=== PATIENT | male | born 1940 | race Two or more races ===

== ENCOUNTER 2018-01-21 10:05 | Inpatient (IN) | payer MEDICARE, OTHER ==
[~2018-01-21] VITALS: Ht 177.8 cm; Wt 83.5 kg
[~2018-01-21 10:05] MED LIST: ASPI-495 PO; BIMA5DRO OP; CHLO5CAP3 PO; CLOB15CR5 TP; CLOP75TA15 PO; FURO-145 PO; GLIP2.5T3 PO; LOVA10TA PO; MEMA10TA PO; METF500T3 PO; POTA20PA40 PO
--- NOTE | 2018-01-21 10:20 | NUR ---
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 PATIENT IS ALTERED. VITAL SIGNS CHECKED AND WNL. KEPT COMFORTABLE. SIDE RAILS PADDED TO PREVENT INJURY. WILL CONTINUE TO MONITOR ACCORDINGLY.
[2018-01-21 10:25] LABS: BASOPHILS % (AUTO) 0.2 % (0.0-2.0); EOSINOPHILS % (AUTO) 0.7 % (0.0-6.0); HEMATOCRIT 42 % (39-51); HEMOGLOBIN 13.9 g/dL (13.5-17.5); LYMPHOCYTES # (AUTO) 1.3 /CMM (0.8-4.8); LYMPHOCYTES % (AUTO) 24.4 % (20.0-44.0); MEAN CORPUSCULAR HGB CONC 33 g/dl (31.0-36.0); MEAN CORPUSCULAR VOLUME 77 fL (80-96); MONOCYTES # (AUTO) 0.3 /CMM (0.1-1.30); MONOCYTES % (AUTO) 5.7 % (2.0-12.0); NEUTROPHILS # (AUTO) 3.8 /CMM (1.8-8.9); PLATELET COUNT (AUTO) 181 /CMM (150-450); RED BLOOD CELL COUNT(AUTO) 5.41 MIL/uL (4.5-6.0); WHITE BLOOD COUNT (AUTO) 5.5 K/uL (4.3-11.0)
[2018-01-21] MEDS ORDERED: IV NS 0.9% 1,000 ML BAG IV ONE (10:30)
[2018-01-21 10:46] LABS: CALCIUM, SERUM 8.6 mg/dL (8.5-10.1); CARBON DIOXIDE 20 mmol/L (21-32); CHLORIDE 98 mmol/L (98-107); CREATININE 1.4 mg/dL (0.6-1.3); GLUCOSE 166 mg/dL (74-106); POTASSIUM 4.1 mmol/L (3.5-5.1); SODIUM SERUM 134 mmol/L (136-145); UREA NITROGEN, BLOOD 11 mg/dL (7-18)
[2018-01-21 10:51] LABS: APPEARANCE,URINE Clear (CLEAR); BILIRUBIN,URINE Negative (NEGATIVE); BLOOD, URINE Trace-intact Ery/uL (NEGATIVE); COLOR,URINE Yellow (YELLOW); KETONES,URINE Trace (NEGATIVE); LEUKOCYTE ESTERASE ,URINE Negative (NEGATIVE); NITRITE, URINE Negative (NEGATIVE); PH,URINE 7.5 (5.0-8.0); PROTEIN,URINE 30 mg/dl (NEGATIVE); UGLUCOSE Negative (NEGATIVE)
--- NOTE | 2018-01-21 10:51 | NUR ---
URINE COLLECTED AND SENT TO THE LAB.
[2018-01-21 10:52] LABS: ALANINE AMINOTRANSFERASE 30 U/L (12-78); ALKALINE PHOSPHATASE 77 U/L (46-116); ASPARTATE AMINOTRANSFERASE 19 U/L (15-37); BILIRUBIN,DIRECT 0.1 mg/dL (0.0-0.2); BILIRUBIN,TOTAL 0.4 mg/dL (0.2-1.0); TOTAL PROTEIN, SERUM 6.9 g/dL (6.4-8.2)
[2018-01-21 11:00] LABS: BACTERIA,URINE Rare /HPF (None Seen); RBC,URINE 0-2 /HPF (0-2); SQUAMOUS EPITHELIAL CELL,UR Rare /HPF (None Seen); WBC,URINE 0-2 /HPF (0-3)
[2018-01-21] MEDS ORDERED: MIDAZOLAM HCL 2 MG/2ML VIAL IV ONE ×2 (11:00→13:00)
[2018-01-21] MEDS ORDERED: MIDAZOLAM HCL 2 MG/2ML VIAL ONE ×2 (11:09→11:50)
--- NOTE | 2018-01-21 11:11 | NUR ---
ADMIT TO ROOM 113-1 BUSINESS COMMUNICATIONS INSTRUCTOR DANA
--- NOTE | 2018-01-21 11:23 | NUR ---
REPORT GIVEN TO OBEY ROMERO FOR MARIELA. PATIENT GOING TO ROOM 113-1 T.
[2018-01-21] MEDS ORDERED: DOCU250C14 PO (12:22)
[2018-01-21] MEDS ORDERED: SACC250C PO (12:22)
[2018-01-21] MEDS ORDERED: ERGO500014 PO (12:22)
[2018-01-21] MEDS ORDERED: HYDR-4384 PO (12:22)
[2018-01-21] MEDS ORDERED: POLY17PO4 PO (12:22)
[2018-01-21] MEDS ORDERED: AMLO2.5T3 PO (12:22)
[2018-01-21] MEDS ORDERED: FAMO20TA8 PO (12:22)
[2018-01-21] MEDS ORDERED: TEST200V3 IM (12:22)
[2018-01-21] MEDS ORDERED: ALBU2.5V38 IH (12:22)
[2018-01-21] MEDS ORDERED: CLON0.5T12 PO (12:22)
[2018-01-21] MEDS ORDERED: MAG30ORA PO (12:22)
[2018-01-21] MEDS ORDERED: CYAN10006 IM (12:22)
[2018-01-21] MEDS ORDERED: OXCA300T4 PO (12:22)
[2018-01-21] MEDS ORDERED: QUET50TA PO (12:22)
[2018-01-21] MEDS ORDERED: CYAN10009 PO (12:22)
[2018-01-21] MEDS ORDERED: MIRT7.5T10 PO (12:22)
[2018-01-21] MEDS ORDERED: QUET25TA PO (12:22)
[2018-01-21] MEDS ORDERED: ACET325T53 PO (12:22)
[2018-01-21] MEDS ORDERED: NA P133E RC (12:22)
[2018-01-21] MEDS ORDERED: CHOL100040 PO (12:22)
[2018-01-21] MEDS ORDERED: MULT-213 PO (12:22)
[2018-01-21] MEDS ORDERED: PSYL1PAC8 PO (12:22)
[2018-01-21] MEDS ORDERED: MAGN400O6 PO (12:22)
[2018-01-21] MEDS ORDERED: INSU100I34 SQ (12:30)
[2018-01-21] MEDS ORDERED: CRAN3875 PO (12:30)
--- NOTE | 2018-01-21 12:31 | NUR ---
MOVING PATIENT TO BAKARI TO ROOM 113-1 T VIA ACLS PROTOCOL.
--- NOTE | 2018-01-21 12:32 | NUR ---
ADDITIONAL VERSED 2MG IV GIVEN VERBAL ORDERED BY DR. SOLIS WHILE ON CT.
[2018-01-21 13:00] VITALS: BP 116/66
--- NOTE | 2018-01-21 13:00 | NUR ---
RN ADMITTING NOTES: Rec'd report from Zachary KIM RN. Pt transferred via gurney, admitted to Tele as ordered. Pt is awake but not oriented, unable to understand language spoken. On room air, no SOB. Placed on telemonitor, SR 83 bpm. Has IV line on RFA G20, SL, flushing well, no s/sx of infection/infiltration noted. Pt is incontinent w/ bladder. Skin assessed mostly on the lower extremities & back as pt is refusing to take photos of his upper extremities, crossing his arms & won't let RN to check on it. CN made aware of admission & informed Dr. Marti re: admission orders. No belongings noted. Provided comfort & safety measures. Placed padded siderails. Bed kept low & in locked pos. Call light placed w/in reach. Will cont to monitor & attend pt needs.
[2018-01-21 16:00] VITALS: BP_SYST 90; BP_SYST 98; BP_DIAS 70
[2018-01-21] MEDS ORDERED: MAG HYDROX/AL HYDROX/SIMETH 30 ML UDC PO PRN (18:30)
[2018-01-21] MEDS ORDERED: ONDANSETRON HCL/PF 4 MG/2 ML VIAL IVP PRN (18:30)
[2018-01-21] MEDS ORDERED: Z GUARD REMEDY 2 OZ OINT TP PRN (18:30)
[2018-01-21] MEDS ORDERED: ZOLPIDEM TARTRATE 5 MG TABLET PO PRN (18:30)
[2018-01-21] MEDS ORDERED: MAGNESIUM HYDROXIDE 30 ML UDC PO PRN (18:30)
[2018-01-21] MEDS ORDERED: ACETAMINOPHEN 325 MG TABLET PO PRN (18:30)
[2018-01-21] MEDS ORDERED: ERGOCALCIFEROL (VITAMIN D 2) 50,000 UNIT CAPSULE PO SCH (18:30)
[2018-01-21] MEDS ORDERED: HYDROCODONE/APAP 5/325MG 1 EACH TABLET PO PRN (18:30)
[2018-01-21] MEDS ORDERED: DEXTROSE 50%-WATER 50 ML DISP.SYRIN IV PRN (19:00)
[2018-01-21] MEDS ORDERED: *INSULIN REGULAR(HUMULIN R)HUM 100 UNIT/ML VIAL SQ PRN (19:00)
[2018-01-21] MEDS ORDERED: INSULIN REGULAR, HUMAN 100 UNIT/ML 3 ML VIAL SQ PRN (19:00)
--- NOTE | 2018-01-21 19:01 | NUR ---
RN CLOSING NOTES: No acute changes noted. On telemonitor ST. IV line access kept patent & intact w/ no s/sx of infection/infiltration. Per CN, Dr. Acosta is the admitting doctor & not Dr. Marti. Dr. Acosta just placed the orders. Pt kept well rested. Needs attended. No active seizures noted. Bed kept low & in locked pos. Call light w/in reach. Endorsed to PM RN for MARIELA.
--- NOTE | 2018-01-21 19:14 | NUR ---
PATIENT ACCESS DIRECTOR NOTES RECEIVED PT ON BED. CONFUSED. ON TELE MONITOR SINUS TACHY HR 115. ON ROOM AIR NO RESPIRATORY DISTRESS NOTED. SEIZURE PRECAUTION OBSERVED. IV ACCESS ON RFA G20 PATENT AND INTACT. HEAD OF BED ELEVATED. SIDE RAILS UP. CALL LIGHT WITHIN REACH. BED ALARM ON. WILL CONTINUE TO MONITOR PT CLOSELY.
[2018-01-21] MEDS ORDERED: ALBUTEROL FS 2.5 MG/0.5 ML VIAL.NEB NEB PRN (19:30)
[2018-01-21 20:00] VITALS: BP 126/50
--- NOTE | 2018-01-21 20:51 | NUR ---
BAKARI RN NOTES RECEIVED PT REPORT FROM LOPEZ. PATIENT IS IN BED, CONFUSED. PULING TELE MONITOR, ON ROOM AIR NO RESPIRATORY DISTRESS NOTED. SEIZURE PRECAUTION OBSERVED. IV ACCESS ON RFA G20 PATENT AND INTACT. HEAD OF BED ELEVATED. SIDE RAILS UP. BED IN LOW , LOCKED POSITION, CALL LIGHT WITHIN REACH. BED ALARM ON. WILL CONTINUE TO MONITOR PT CLOSELY.
[2018-01-21] MEDS: ACETAMINOPHEN 325 MG TABLET PO PRN ×2 (22:02→22:34)
[2018-01-21] MEDS: MIRTAZAPINE 15 MG TABLET PO SCH (22:02)
[2018-01-21] MEDS: BLOOD SUGAR DIAGNOSTIC 1 EACH STRIP VI SCH (22:11)
[2018-01-21] MEDS: QUETIAPINE FUMARATE 25 MG TABLET PO SCH (22:11)
--- NOTE | 2018-01-21 22:35 | NUR ---
RN NOTES PATIENT REFUSED REMERON 7.5MG PO AND SEROQUEL 75MG PO. WILL TRY LATER AGAIN.
[2018-01-22] VITALS: BP 97/55
--- NOTE | 2018-01-22 03:28 | NUR ---
RN NOTES PATIENT WAS ASKED TO TAKE HIS REMERON 7.5MG PO AND SEROQUEL 75MG PO AGAIN AND PATIENT REFUSED AGAIN. WILL ENDORSE MORNING SHIFT NURSE.
[2018-01-22 04:00] VITALS: BP 122/61
--- NOTE | 2018-01-22 07:30 | NUR ---
RN NOTES RECEIVED PATIENT IN BED, ALERT AND ORIENTED X1, PATIENT VERBAL BUT NOT ABLE TO SPECIFY LANGUAGE USED AT THIS TIME, ON ROOM AIR, BREATHING UNLABORED, SATURATING AT 100 %, ON TELEMONITOR: SINUS RHYTHM HR AT 73, SKIN WARM TO TOUCH, IV LINE ON THE R FA: IN PLACE AND INTACT, PATENT UPON FLUSHING, WITH DIOP CATHETER: DRAINING WELL VIA GRAVITY TO CLEAR YELLOW URINE, SAFETY MEASURES OBSERVED AND MAINTAINED, BED LOW AND LOCKED, SRX3 RAISED, CALL LIGHT WITHIN REACH WILL CONTINUE TO MONITOR PATIENT
[2018-01-22 07:42] LABS: BASOPHILS % (AUTO) 0.2 % (0.0-2.0); EOSINOPHILS % (AUTO) 0.2 % (0.0-6.0); HEMATOCRIT 39 % (39-51); LYMPHOCYTES # (AUTO) 1.3 /CMM (0.8-4.8); LYMPHOCYTES % (AUTO) 22.5 % (20.0-44.0); MEAN CORPUSCULAR HGB CONC 33 g/dl (31.0-36.0); MEAN CORPUSCULAR VOLUME 77 fL (80-96); MONOCYTES # (AUTO) 0.5 /CMM (0.1-1.30); MONOCYTES % (AUTO) 8.9 % (2.0-12.0); NEUTROPHILS # (AUTO) 3.9 /CMM (1.8-8.9); NEUTROPHILS % (AUTO) 68.2 % (43.0-81.0); PLATELET COUNT (AUTO) 172 /CMM (150-450); RED BLOOD CELL COUNT(AUTO) 5.06 MIL/uL (4.5-6.0); WHITE BLOOD COUNT (AUTO) 5.8 K/uL (4.3-11.0)
[2018-01-22 07:49] LABS: CALCIUM, SERUM 8.6 mg/dL (8.5-10.1); CARBON DIOXIDE 25 mmol/L (21-32); CHLORIDE 104 mmol/L (98-107); CREATININE 1.2 mg/dL (0.6-1.3); GLUCOSE 114 mg/dL (74-106); MAGNESIUM 2.2 mg/dL (1.8-2.4); PHOSPHORUS 2.8 mg/dL (2.5-4.9); POTASSIUM 4.1 mmol/L (3.5-5.1); SODIUM SERUM 138 mmol/L (136-145); UREA NITROGEN, BLOOD 11 mg/dL (7-18)
--- NOTE | 2018-01-22 07:53 | NUR ---
WOUND CARE CONSULT: PT REFUSED SKIN ASSESSMENT. ALL SKIN PROTECTION MEASURES IN PLACE AND DISCUSSED WITH NURSING STAFF. WILL SEE PT PT CONDITION PERMITS.
[2018-01-22 08:00] VITALS: BP 104/55
[2018-01-22 08:50] LABS: CHOLESTEROL 118 mg/dL (<200); HDL CHOLESTEROL 36 mg/dL (40-60); LDL 65 mg/dL (0-99); TRIGLYCERIDES 82 mg/dL (30-150)
[2018-01-22] MEDS: MULTIVIT, IRON, MIN NO. 8, FA 1 TAB PO SCH (08:54)
[2018-01-22] MEDS: POLYETHYLENE GLYCOL 3350 17 GM POWD.PACK PO SCH (08:54)
[2018-01-22] MEDS: BLOOD SUGAR DIAGNOSTIC 1 EACH STRIP VI SCH ×4 (08:54→21:58)
[2018-01-22] MEDS: CHOLECALCIFEROL 1,000 UNIT TABLET (VIT D3) PO SCH (08:56)
[2018-01-22] MEDS: AMLODIPINE BESYLATE 2.5 MG TABLET PO SCH (08:56)
[2018-01-22] MEDS: DOCUSATE SODIUM 250 MG CAPSULE PO SCH (08:56)
[2018-01-22] MEDS: clonazePAM 0.5 MG TABLET PO SCH ×3 (08:57→16:45)
[2018-01-22] MEDS: CYANOCOBALAMIN 500 MCG TABLET PO SCH (08:57)
[2018-01-22] MEDS: QUETIAPINE FUMARATE 25 MG TABLET PO SCH ×2 (08:58→16:45)
[2018-01-22] MEDS ORDERED: OXCARBAZEPINE 150 MG TABLET PO SCH (09:00)
[2018-01-22] MEDS ORDERED: LEVETIRACETAM (250 MG) 250 MG TABLET PO SCH (09:00)
[2018-01-22] MEDS: FAMOTIDINE (20 MG) 20 MG TABLET PO SCH (09:01)
[2018-01-22] MEDS: CLOPIDOGREL BISULFATE 75 MG TABLET PO SCH (09:01)
[2018-01-22 12:00] VITALS: BP 101/46
--- NOTE | 2018-01-22 14:32 | NUR ---
JASMYN AND I TALKED TO CHARGE NURSE AKI IN REGARDS TO THIS PATIENT FOR MRI BRAIN W/WO, PATIENT IS COMBATIVE,MOVES AROUND,PATIENT NEEDS TO BE SEDATED ,AKI WILL TALK TO THE DR. MAY BE DONE TOMORROW.
[2018-01-22 16:00] VITALS: BP 109/40
[2018-01-22] MEDS: OXCARBAZEPINE 150 MG TABLET PO SCH (16:45)
--- NOTE | 2018-01-22 17:00 | NUR ---
RN NOTES EEG NOT DONE DUE TO PATIENT UNABLE TO STAY STILL
--- NOTE | 2018-01-22 19:08 | NUR ---
RN NOTES ENDORSED PATIENT FOR CONTINUITY OF CARE. NO ACUTE CHANGES WITHIN THE SHIFT. ALL [id number] NEEDS ANTICIPATED, ATTENDED AND MET. SAFETY PRECAUTIONS OBSERVED AND MAINTAINED. CALL LIGHT WITHIN REACH AT ALL TIMES
[2018-01-22 20:00] VITALS: BP 100/62
--- NOTE | 2018-01-22 22:07 | NUR ---
SECURITY CHIEF MUSEUM NOTES RECEIVED PT ON BED. A/O X 1 CONFUSED. COMBATIVE TRYING TO GET OUT OF BED. ON RESTRAINTS. ON TELE MONITOR SR 90. ON ROOM AIR SATURATING WELL. NO RESPIRATORY DISTRESS NOTED. HEAD OF BED ELEVATED. SIDE RAILS UP. CALL LIGHT WITHIN REACH. BED ALARM ON. WILL CONTINUE TO MONITOR PT CLOSELY.
--- NOTE | 2018-01-22 22:11 | NUR ---
HOSPITAL ACCOUNT LIAISON NOTES BLOOD SUGAR 74. GIVEN ONE ORANGE JUICE. WILL CONTINUE TO MONITOR PT CLOSELY.
[2018-01-23] VITALS: BP 107/58
[2018-01-23 04:00] VITALS: BP 99/55
--- NOTE | 2018-01-23 06:57 | NUR ---
DIRECTOR OF SEARCH ENGINE MARKETING NOTES NO ACUTE CHANGES NOTED DURING THE SHIFT. DUE MEDS GIVEN. PROVIDED COMFORT AND SAFETY. WILL ENDORSE TO THE AM NURSE FOR CONTINUITY OF CARE.
[2018-01-23 08:00] VITALS: BP_SYST 129; BP_DIAS 54; BP_DIAS 59
--- NOTE | 2018-01-23 08:00 | NUR ---
SENIOR FINANCIAL REPORTING ANALYST NOTE PATIENT IN BED , ALL NEEDS ATTENDED ,WITH BOTH SOFT RESTRAIN ORDERED , NO SOB NOTED FED BY ASSISTANT COUNTY ENGINEER NUL056%, NOTED SEMI LIQUID STOOL COLLECTED FOR C DIF PER PROTOCOL, RT FA HL INTACT BED IN LOWEST AND LOCKED POSITION , C.WILL CONT TO MONITOR CLOSELY
[2018-01-23] MEDS: POLYETHYLENE GLYCOL 3350 17 GM POWD.PACK PO SCH (09:00)
[2018-01-23] MEDS: QUETIAPINE FUMARATE 25 MG TABLET PO SCH ×3 (09:26→21:53)
[2018-01-23] MEDS: AMLODIPINE BESYLATE 2.5 MG TABLET PO SCH (09:27)
[2018-01-23] MEDS: OXCARBAZEPINE 150 MG TABLET PO SCH ×2 (09:28→16:56)
[2018-01-23] MEDS: CLOPIDOGREL BISULFATE 75 MG TABLET PO SCH (09:30)
[2018-01-23] MEDS: DOCUSATE SODIUM 250 MG CAPSULE PO SCH (09:30)
[2018-01-23] MEDS: CYANOCOBALAMIN 500 MCG TABLET PO SCH (09:31)
[2018-01-23] MEDS: MULTIVIT, IRON, MIN NO. 8, FA 1 TAB PO SCH (09:31)
[2018-01-23] MEDS: CHOLECALCIFEROL 1,000 UNIT TABLET (VIT D3) PO SCH (09:31)
[2018-01-23] MEDS: clonazePAM 0.5 MG TABLET PO SCH ×3 (09:31→16:56)
[2018-01-23] MEDS: BLOOD SUGAR DIAGNOSTIC 1 EACH STRIP VI SCH ×4 (09:37→21:53)
[2018-01-23] MEDS: FAMOTIDINE (20 MG) 20 MG TABLET PO SCH (09:38)
--- NOTE | 2018-01-23 10:37 | NUR ---
RESIDENTIAL SOLAR CONSULTANT NOTE PER HOSPITAL PROTOCOL STOOL FOR C DIF COLLECTED Addendum: 01/23/18 at 1412 by ABI ESTRELLA RN 1038 SENT STOOL FOR C DIF TO LABORATORY ,GIVEN TO LEXI AND SIGNED TO LOG BOOK
--- NOTE | 2018-01-23 11:11 | NUR ---
PRODUCT MARKETING PROGRAMS MANAGER NOTE MRI CONSENT DONE ORDERED SPOKE WITH
[2018-01-23 12:00] VITALS: BP 92/54
--- NOTE | 2018-01-23 12:47 | NUR ---
ACCOUNTING MACHINE MECHANIC NOTE CALLED TO CHEMICAL PLANT TECHNICAL DIRECTOR STATED THAT WILL DO AFTERNOON TODAY, WILL Yessi Addendum: 01/23/18 at 1415 by ABI ESTRELLA RN 1414 CALLED TO MRI UNIT, LEFT A MESSAGE ABOUT MRI TODAY. WILL Yessi
--- NOTE | 2018-01-23 14:05 | NUR ---
TRAIN CONTROLLER NOTE SEEN BT DR CUELLAR PSYCH DOCTOR, NOTIFIED THAT PATIENT WILL HAVE MRI TODAY ALSO , NOTIFIED THAT PATIENT VERY RESTLESS ,ON SOFT RESTRAIN ,OK TO GIVE ATIVAN PRIOR PROCEDURE WILL F\U
[2018-01-23] MEDS ORDERED: LORAZEPAM INJ 2 MG/ML VIAL IV ONE (14:30)
--- NOTE | 2018-01-23 15:54 | NUR ---
HUMIDIFIER MAINTENANCE WORKER NOTE NEW HL ON LT FA KINA 22 INSERTED WITH GOOD BLOOD RETURN. KEEP CLEAN DRY
[2018-01-23 16:00] VITALS: BP 101/62
[2018-01-23] MEDS ORDERED: LORAZEPAM INJ 2 MG/ML VIAL IV STA (17:08)
--- NOTE | 2018-01-23 17:09 | NUR ---
WRAPPER LAYER AND EXAMINER SOFT WORK NOTE [id number] ATIVAN FOR MRI NOT GIVEN DUE TO MRI POSTPONED AT THIS TIME ,CALLED PHARMACY STATED TO REENTRY MED , ORDER CARRIED OUT OUR
--- NOTE | 2018-01-23 17:30 | NUR ---
EDGER FEEDER NOTE ATIVAN PRIOR MRI DONE
--- NOTE | 2018-01-23 17:37 | NUR ---
PILOT BOAT CAPTAIN NOTE UNABLE TO DO MRI ,PATIENT STILL RESTLESS, UNABLE TO STAY STILL , WILL F\U WITH
--- NOTE | 2018-01-23 18:39 | NUR ---
JACKHAMMER SPLITTER OPERATOR NOTE SPOKE WITH BARBARA ROMERO ENVIRONMENTAL LEAD NEUROLOGIST, NOTIFIED THAT PATIENT UNABLE TO DO MRI DESPITE ALL PSYCH MEDS WAS GIVEN AND ATIVAN PRIOR MRI ,NO NEW ORDER GIVEN AT THIS TIME
[2018-01-23 20:00] VITALS: BP 125/85
[2018-01-23] MEDS: MIRTAZAPINE 15 MG TABLET PO SCH (21:53)
[2018-01-24] VITALS: BP 103/63
[2018-01-24 04:00] VITALS: BP 107/58
[2018-01-24 08:00] VITALS: BP 112/53
--- NOTE | 2018-01-24 08:06 | NUR ---
INITIAL BUSINESS LAW INSTRUCTOR NOTE RCVD PT SLEEPING, UNABLE TO FOLLOW COMMANDS, SR ON TELE. ON RA TOLERATING WELL. INCONTINENT TO DIAPER. BILATERAL SOFT WRIST RESTRAINTS IN PLACE. CIRCULATION CHECKS DONE, PULSES PRESENT BILATERALLY AND DISTALLY. IV SITE C/D/I/PATENT. NO S/O INFILTRATION/PHLEBITIS OBSERVED UPON FLUSHING. WILL CONTINUE TO MONITOR PT FOR SAFETY AND COMFORT. BED IN LOW AND LOCKED POSITION. CALL LIGHT WITHIN REACH.
[2018-01-24] MEDS: BLOOD SUGAR DIAGNOSTIC 1 EACH STRIP VI SCH ×3 (08:53→17:32)
[2018-01-24] MEDS: POLYETHYLENE GLYCOL 3350 17 GM POWD.PACK PO SCH (09:00)
[2018-01-24] MEDS ORDERED: CYANOCOBALAMIN 1,000 MCG/ML VIAL IM SCH (09:00)
[2018-01-24] MEDS: DOCUSATE SODIUM 250 MG CAPSULE PO SCH (09:00)
[2018-01-24] MEDS: clonazePAM 0.5 MG TABLET PO SCH ×3 (09:15→17:32)
[2018-01-24] MEDS: CLOPIDOGREL BISULFATE 75 MG TABLET PO SCH (09:15)
[2018-01-24] MEDS: FAMOTIDINE (20 MG) 20 MG TABLET PO SCH (09:15)
[2018-01-24] MEDS: QUETIAPINE FUMARATE 25 MG TABLET PO SCH ×2 (09:15→17:32)
[2018-01-24] MEDS: CHOLECALCIFEROL 1,000 UNIT TABLET (VIT D3) PO SCH (09:15)
[2018-01-24] MEDS: CYANOCOBALAMIN 500 MCG TABLET PO SCH (09:16)
[2018-01-24] MEDS: MULTIVIT, IRON, MIN NO. 8, FA 1 TAB PO SCH (09:16)
[2018-01-24] MEDS: AMLODIPINE BESYLATE 2.5 MG TABLET PO SCH (09:16)
[2018-01-24] MEDS: OXCARBAZEPINE 150 MG TABLET PO SCH ×2 (09:16→17:33)
--- NOTE | 2018-01-24 10:28 | NUR ---
RADAR AIR TRAFFIC CONTROLLER NOTE PT OFF RESTRAINTS AT THIS TIME TOLERATING WELL. PT APPEARS TO BE CALM WILL CONTINUE TO MONITOR.
[2018-01-24] MEDS ORDERED: OXCA150T13 PO (15:53)
[2018-01-24 16:00] VITALS: BP 105/52
[2018-01-24 20:00] VITALS: BP 111/62
--- NOTE | 2018-01-24 20:00 | NUR ---
BAKARI RN NOTE RECEIVED PT REPORT FROM AM NURSE. PATIENT IS AWAKE, UNABLE TO FOLLOW COMMANDS,CONFUSED, ON RA TOLERATING WELL. INCONTINENT TO DIAPER. PULSES CHECKED, PRESENT BILATERALLY AND DISTALLY. IV SITE C/D/I/PATENT. NO S/O INFILTRATION/PHLEBITIS OBSERVED UPON FLUSHING. WILL CONTINUE TO MONITOR PT FOR SAFETY AND COMFORT. BED IN LOW AND LOCKED POSITION. CALL LIGHT WITHIN REACH.
--- NOTE | 2018-01-24 20:07 | NUR ---
MED-EMS COORDINATOR NOTE PT REMAINS STABLE SHOWING NO S/O DISTRESS/PAIN AT THIS TIME. PT'S CARE ENDORSED TO UPHOLSTERY AUTO TRIMMER RN. PT TO BE DC TO [facility]. REPORT CALLED TO FACILITY AND GIVEN TO NICK MERRILL. PT'S , SANDEEP INFORMED OVER THE PHONE OF PT'S TRANSFER TO FACILITY THIS EVENING AND ACKNOWLEDGED INFORMATION.
--- NOTE | 2018-01-24 21:35 | NUR ---
BAKARI RN NOTES PATIENT IS LEAVING BY [facility]BUL[facility] TO [facility]. PATIENT IS STILL CONFUSED, ALERT AND CAN'T FOLLOW COMMENDS. V/S ARE WNL B/P 130/75 HR 97 SPO2 97%, RR 18 , T 97.5. IV LINE AND WRISTBAND REMOVED. NO SOB, NO PAIN AT THIS TIME. ALL NEEDS ARE ATTENDED .
== END 2018-01-24 23:47 | DRG 100 ==
LOC: ER 10:09 → TELE1 11:29 → MEDSG1 01-24 10:58
PROVIDERS: ADMIT Internal Medicine; ATTEND Internal Medicine
DX: R56.9 Unspecified convulsions (principal); N17.0 Acute kidney failure with tubular necrosis; F31.89 Other bipolar disorder; F03.91 Unspecified dementia, unspecified severity, with behavioral disturbance; E11.9 Type 2 diabetes mellitus without complications; Z79.84 Long term (current) use of oral hypoglycemic drugs; I10 Essential (primary) hypertension; F39 Unspecified mood [affective] disorder; G20 Parkinson's disease; Z87.891 Personal history of nicotine dependence; F29 Unspecified psychosis not due to a substance or known physiological condition; Z88.0 Allergy status to penicillin
CPT/HCPCS: 36415; 70450-TC; 71045-TC; 80048-TC; 80061-TC; 80076-TC; 81000-TC; 82542; 82962-TC; 83735-TC; 84100-TC; 85025-TC; 87081-TC; A4349; A4606; G0378; J1815; J2060; J2250; J3420; J7030; Z7610

== ENCOUNTER 2018-06-16 18:43 | Inpatient (IN) | payer MEDICARE, OTHER ==
[~2018-06-16] VITALS: Ht 167.6 cm; Wt 71.2 kg
[~2018-06-16 18:43] MED LIST changes: +ACET325T53 PO; +ALBU2.5V38 IH; +AMLO2.5T4 PO; -ASPI-495 PO; -BIMA5DRO OP; -CHLO5CAP3 PO; +CHOL100040 PO; -CLOB15CR5 TP; +CLON0.5T12 PO; +CRAN3875 PO; +CYAN10006 IM; +CYAN10009 PO; +DOCU250C14 PO; +ERGO500014 PO; +FAMO20TA8 PO; -FURO-145 PO; -GLIP2.5T3 PO; +HYDR-4384 PO; +INSU100I34 SQ; -LOVA10TA PO; +MAG30ORA PO; +MAGN400O6 PO; -MEMA10TA PO; -METF500T3 PO; +MIRT7.5T10 PO; +MULT-213 PO; +NA P133E RC; +OXCA150T13 PO; +POLY17PO4 PO; -POTA20PA40 PO; +PSYL1PAC8 PO; +QUET25TA PO; +QUET50TA PO; +SACC250C PO; +TEST200V3 IM
--- NOTE | 2018-06-16 18:45 | NUR ---
PT ABISAI FROM SNF FOR LOW O2 SAT; PT AAOX1, PT ON MONITOR, NAD NOTED, PENDING MD RINCON
[2018-06-16 19:14] LABS: BASOPHILS % (AUTO) 0.3 % (0.0-2.0); EOSINOPHILS % (AUTO) 0.7 % (0.0-6.0); HEMATOCRIT 41 % (39-51); HEMOGLOBIN 13.2 g/dL (13.5-17.5); LYMPHOCYTES % (AUTO) 9.3 % (20.0-44.0); MEAN CORPUSCULAR HGB CONC 33 g/dl (31.0-36.0); MEAN CORPUSCULAR VOLUME 77 fL (80-96); MONOCYTES # (AUTO) 0.6 /CMM (0.1-1.30); MONOCYTES % (AUTO) 5.5 % (2.0-12.0); NEUTROPHILS # (AUTO) 9.4 /CMM (1.8-8.9); NEUTROPHILS % (AUTO) 84.2 % (43.0-81.0); PLATELET COUNT (AUTO) 196 /CMM (150-450); RED BLOOD CELL COUNT(AUTO) 5.28 MIL/uL (4.5-6.0); WHITE BLOOD COUNT (AUTO) 11.2 K/uL (4.3-11.0)
[2018-06-16] MEDS ORDERED: CALC500T PO (19:15)
[2018-06-16] MEDS ORDERED: DIVA500T2 PO (19:15)
[2018-06-16] MEDS ORDERED: METF-440 PO (19:15)
[2018-06-16] MEDS ORDERED: CHOL100044 PO (19:15)
[2018-06-16] MEDS ORDERED: OXCA300T4 PO (19:15)
[2018-06-16 19:20] LABS: CARBON DIOXIDE 29 mmol/L (21-32); CHLORIDE 98 mmol/L (98-107); CREATININE 1.2 mg/dL (0.6-1.3); GLUCOSE 160 mg/dL (74-106); POTASSIUM 4.9 mmol/L (3.5-5.1); SODIUM SERUM 135 mmol/L (136-145); UREA NITROGEN, BLOOD 14 mg/dL (7-18)
[2018-06-16 19:36] LABS: ALANINE AMINOTRANSFERASE 14 U/L (12-78); ALBUMIN 3.9 g/dL (3.4-5.0); ALKALINE PHOSPHATASE 95 U/L (46-116); ASPARTATE AMINOTRANSFERASE 8 U/L (15-37); BILIRUBIN,DIRECT 0.1 mg/dL (0.0-0.2); BILIRUBIN,TOTAL 0.2 mg/dL (0.2-1.0); TOTAL PROTEIN, SERUM 7.4 g/dL (6.4-8.2)
[2018-06-16] MEDS ORDERED: LEVOFLOXACIN 750 MG /D5W 150ML 150 ML IV ONE ×2 (19:59→20:00)
[2018-06-16 20:00] VITALS: BP 104/73
[2018-06-16] MEDS ORDERED: IV NS 0.9% 1,000 ML BAG IV ONE (20:00)
--- NOTE | 2018-06-16 20:05 | NUR ---
CALLED HOUSE SUP FOR TELE BED
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
--- NOTE | 2018-06-16 20:20 | NUR ---
PT ASSIGNED TO 116-1.
--- NOTE | 2018-06-16 20:41 | NUR ---
REPORT GIVEN TO EDDA ROMERO FOR MARIELA; PT WILL BE TRANSPORTED TO 1ST FLOOR VIA ACLS PROTOCOL
[2018-06-16] MEDS ORDERED: ONDANSETRON HCL/PF 4 MG/2 ML VIAL IVP PRN (21:00)
[2018-06-16] MEDS ORDERED: NA PHOS,M-B/NA PHOS,DI-BA 1 EA ENEMA RC PRN (21:00)
[2018-06-16] MEDS ORDERED: clonazePAM 0.5 MG TABLET PO PRN (21:00)
[2018-06-16] MEDS ORDERED: MAGNESIUM HYDROXIDE 30 ML UDC PO PRN (21:00)
[2018-06-16] MEDS ORDERED: ACETAMINOPHEN 325 MG TABLET PO PRN (21:00)
[2018-06-16] MEDS ORDERED: Z GUARD REMEDY 2 OZ OINT TP PRN (21:00)
[2018-06-16] MEDS ORDERED: MAG HYDROX/AL HYDROX/SIMETH 30 ML UDC PO PRN (21:00)
[2018-06-16] MEDS ORDERED: HYDROCODONE/APAP 5/325MG 1 EACH TABLET PO PRN (21:00)
[2018-06-16 21:07] LABS: APPEARANCE,URINE Clear (CLEAR); BILIRUBIN,URINE Negative (NEGATIVE); BLOOD, URINE Negative Ery/uL (NEGATIVE); COLOR,URINE Yellow (YELLOW); KETONES,URINE Negative (NEGATIVE); LEUKOCYTE ESTERASE ,URINE Negative (NEGATIVE); NITRITE, URINE Negative (NEGATIVE); PH,URINE 7.5 (5.0-8.0); PROTEIN,URINE Negative (NEGATIVE); UGLUCOSE Negative (NEGATIVE)
[2018-06-16 21:30] LABS: BACTERIA,URINE Few /HPF (None Seen); RBC,URINE 0-2 /HPF (0-2); SQUAMOUS EPITHELIAL CELL,UR Few /HPF (None Seen); WBC,URINE 0-2 /HPF (0-3)
[2018-06-16] MEDS: ENOXAPARIN SODIUM 40 MG/0.4 ML DISP.SYRIN SQ SCH (22:49)
--- NOTE | 2018-06-16 23:25 | NUR ---
RN NOTES GOT A CALL FROM LAB PATIENT'S LACTIC ACID IS 2.0 FROM 4.1. WILL CONTINUE TO MONITOR PT.
[2018-06-16] MEDS: IV NS 0.9% 1,000 ML IV PRN (23:30)
[2018-06-17] VITALS: BP 122/78
[2018-06-17] MEDS ORDERED: ALBUTEROL FS 2.5 MG/3 ML VIAL.NEB INH PRN (01:30)
[2018-06-17] MEDS ORDERED: INSULIN REGULAR, HUMAN 100 UNIT/ML 3 ML VIAL SQ PRN (03:30)
[2018-06-17] MEDS ORDERED: DEXTROSE 50%-WATER 50 ML DISP.SYRIN IV PRN (03:30)
[2018-06-17 04:00] VITALS: BP_SYST 101; BP_SYST 140; BP_DIAS 73; BP_DIAS 91
[2018-06-17 07:04] LABS: BASOPHILS % (AUTO) 0.2 % (0.0-2.0); EOSINOPHILS % (AUTO) 0.6 % (0.0-6.0); HEMATOCRIT 37 % (39-51); HEMOGLOBIN 12.5 g/dL (13.5-17.5); LYMPHOCYTES # (AUTO) 1.2 /CMM (0.8-4.8); LYMPHOCYTES % (AUTO) 18.5 % (20.0-44.0); MEAN CORPUSCULAR HGB CONC 34 g/dl (31.0-36.0); MEAN CORPUSCULAR VOLUME 75 fL (80-96); MONOCYTES # (AUTO) 0.5 /CMM (0.1-1.30); MONOCYTES % (AUTO) 7.2 % (2.0-12.0); NEUTROPHILS # (AUTO) 4.8 /CMM (1.8-8.9); NEUTROPHILS % (AUTO) 73.5 % (43.0-81.0); PLATELET COUNT (AUTO) 166 /CMM (150-450); RED BLOOD CELL COUNT(AUTO) 4.95 MIL/uL (4.5-6.0); WHITE BLOOD COUNT (AUTO) 6.5 K/uL (4.3-11.0)
--- NOTE | 2018-06-17 07:05 | NUR ---
RN NOTES RECEIVED PT ON BED, ALERT / CONFUSED , ON RA , RESPIRATION EVEN AND UNLABORED, NO SOB NOTED ,ON TELE SR HR IN 80'S , R AC IV SITE G 20 CLEAN , DRY AND INTACT WITH NS AT 75CC/ HR RUNNING , SR UP X3, CALL LIGHT WITHIN EASY REACH, BED LOCKED AND IN LOWEST POSITION , CONTINUE TO MONITOR.
[2018-06-17 07:37] LABS: CALCIUM, SERUM 8.3 mg/dL (8.5-10.1); CARBON DIOXIDE 23 mmol/L (21-32); CHLORIDE 103 mmol/L (98-107); CREATININE 0.9 mg/dL (0.6-1.3); GLUCOSE 92 mg/dL (74-106); MAGNESIUM 1.8 mg/dL (1.8-2.4); PHOSPHORUS 2.7 mg/dL (2.5-4.9); POTASSIUM 3.9 mmol/L (3.5-5.1); SODIUM SERUM 136 mmol/L (136-145); UREA NITROGEN, BLOOD 11 mg/dL (7-18)
[2018-06-17 07:54] LABS: CHOLESTEROL 109 mg/dL (<200); HDL CHOLESTEROL 30 mg/dL (40-60); LDL 68 mg/dL (0-99); THYROID STIMULATING HORMONE 1.642 uIU/mL (0.358-3.74); TRIGLYCERIDES 118 mg/dL (30-150)
[2018-06-17 08:00] VITALS: BP 130/64
[2018-06-17] MEDS: BLOOD SUGAR DIAGNOSTIC 1 EACH STRIP IN SCH ×4 (08:39→21:12)
[2018-06-17] MEDS: CYANOCOBALAMIN 500 MCG TABLET PO SCH (08:40)
[2018-06-17] MEDS: CHOLECALCIFEROL 1,000 UNIT TABLET (VIT D3) PO SCH (08:40)
[2018-06-17] MEDS: QUETIAPINE FUMARATE 25 MG TABLET PO SCH ×3 (08:40→21:04)
[2018-06-17] MEDS: OXCARBAZEPINE 150 MG TABLET PO SCH ×2 (08:40→16:09)
[2018-06-17] MEDS: MULTIVIT W/MINERALS 1 TAB TABLET PO SCH (08:40)
[2018-06-17] MEDS: DOCUSATE SODIUM 250 MG CAPSULE PO SCH (08:40)
[2018-06-17] MEDS: AMLODIPINE BESYLATE 2.5 MG TABLET PO SCH (08:40)
[2018-06-17] MEDS: DIVALPROEX SODIUM 500 MG TABLET.DR PO SCH ×2 (08:41→16:10)
[2018-06-17] MEDS: CLOPIDOGREL BISULFATE 75 MG TABLET PO SCH (08:41)
[2018-06-17] MEDS: PSYLLIUM SEED 1 PKT PACKET PO SCH ×2 (08:41→16:10)
[2018-06-17] MEDS: FAMOTIDINE (20 MG) 20 MG TABLET PO SCH (08:41)
[2018-06-17] MEDS: LACTOBACILLUS RHAMNOSUS GG 1 EACH CAP.SPRINK PO SCH ×2 (08:44→16:09)
[2018-06-17] MEDS ORDERED: CALCIUM GLUCONATE 500 MG TABLET PO SCH (09:00)
[2018-06-17] MEDS ORDERED: Medication Not On Formulary EA (Cran/Vitc/Mannose/Inulin/Brom (Uti-Stat Liquid) 30 ML) PO SCH (09:00)
[2018-06-17] MEDS: POLYETHYLENE GLYCOL 3350 17 GM POWD.PACK PO SCH (11:35)
--- NOTE | 2018-06-17 12:00 | NUR ---
RN NOTES PT STABLE, CONTINUE TO MONITOR .
[2018-06-17] MEDS: IV NS 0.9% 1,000 ML IV PRN (13:30)
[2018-06-17 16:00] VITALS: BP 125/63
--- NOTE | 2018-06-17 18:20 | NUR ---
RN NOTES NO SIGNIFICANT CHANGES NOTED ON THIS SHIFT , NS AT 75CC/HR RUNNING VIA R AC IV SITE , NO COMPLICATION NOTED, WILL ENDOSE TO CANINE DEPUTY NURSE FOR CONTINUITY OF CARE .
[2018-06-17 20:00] VITALS: BP 107/60
[2018-06-17] MEDS: MIRTAZAPINE 15 MG TABLET PO SCH (21:04)
[2018-06-17] MEDS: ENOXAPARIN SODIUM 40 MG/0.4 ML DISP.SYRIN SQ SCH (21:12)
[2018-06-18 04:00] VITALS: BP 135/71
[2018-06-18] MEDS: IV NS 0.9% 1,000 ML IV PRN ×2 (05:31→19:04)
--- NOTE | 2018-06-18 07:00 | NUR ---
MS RN OPENING NOTES RECEIVED PT LYING ON BED,CONFUSED AND AGITATED AND FARSI SPEAKING.ON ROOM AIR,TOLERATING WELL.NO SOB AND ACUTE DISTRESS NOTED.B/L SOFT RESTRAINTS PRESENT,SKIN IS INTACT.IV LINE IS ON RIGHT AC G 20 WITH IV FLUIDS RUNNING 0.9% NS @75CC/HR.SITE IS CLEAN,DRY AND INTACT.NO INFILTRATION NOTED.BED IS IN LOW POSITION AND LOCKED,CALL LIGHT IS WITHIN REACH.WILL CONTINUE TO MONITOR THE PT CLOSELY.
[2018-06-18] MEDS: BLOOD SUGAR DIAGNOSTIC 1 EACH STRIP IN SCH ×4 (07:30→21:57)
[2018-06-18 07:35] LABS: BASOPHILS % (AUTO) 0.5 % (0.0-2.0); EOSINOPHILS % (AUTO) 3.6 % (0.0-6.0); HEMATOCRIT 38 % (39-51); HEMOGLOBIN 12.4 g/dL (13.5-17.5); LYMPHOCYTES # (AUTO) 1.6 /CMM (0.8-4.8); LYMPHOCYTES % (AUTO) 34.6 % (20.0-44.0); MEAN CORPUSCULAR HGB CONC 33 g/dl (31.0-36.0); MEAN CORPUSCULAR VOLUME 75 fL (80-96); MONOCYTES # (AUTO) 0.4 /CMM (0.1-1.30); MONOCYTES % (AUTO) 9.3 % (2.0-12.0); NEUTROPHILS # (AUTO) 2.4 /CMM (1.8-8.9); PLATELET COUNT (AUTO) 167 /CMM (150-450); WHITE BLOOD COUNT (AUTO) 4.6 K/uL (4.3-11.0)
[2018-06-18 07:49] LABS: CALCIUM, SERUM 8.7 mg/dL (8.5-10.1); CARBON DIOXIDE 24 mmol/L (21-32); CHLORIDE 105 mmol/L (98-107); CREATININE 0.9 mg/dL (0.6-1.3); GLUCOSE 85 mg/dL (74-106); MAGNESIUM 2.1 mg/dL (1.8-2.4); PHOSPHORUS 3.4 mg/dL (2.5-4.9); SODIUM SERUM 140 mmol/L (136-145); UREA NITROGEN, BLOOD 9 mg/dL (7-18)
[2018-06-18 08:00] VITALS: BP 127/68
[2018-06-18] MEDS: LACTOBACILLUS RHAMNOSUS GG 1 EACH CAP.SPRINK PO SCH ×2 (09:30→16:10)
[2018-06-18] MEDS: DIVALPROEX SODIUM 500 MG TABLET.DR PO SCH ×2 (09:30→16:10)
[2018-06-18] MEDS: OXCARBAZEPINE 150 MG TABLET PO SCH ×2 (09:30→16:10)
[2018-06-18] MEDS: QUETIAPINE FUMARATE 25 MG TABLET PO SCH ×3 (09:30→21:56)
[2018-06-18] MEDS: CYANOCOBALAMIN 500 MCG TABLET PO SCH (09:31)
[2018-06-18] MEDS: CALCIUM CARBONATE 500 MG TAB.CHEW PO SCH (09:31)
[2018-06-18] MEDS: AMLODIPINE BESYLATE 2.5 MG TABLET PO SCH (09:31)
[2018-06-18] MEDS: CHOLECALCIFEROL 1,000 UNIT TABLET (VIT D3) PO SCH (09:31)
[2018-06-18] MEDS: MULTIVIT W/MINERALS 1 TAB TABLET PO SCH (09:31)
[2018-06-18] MEDS: PSYLLIUM SEED 1 PKT PACKET PO SCH ×2 (09:32→16:10)
[2018-06-18] MEDS: DOCUSATE SODIUM 250 MG CAPSULE PO SCH (09:32)
[2018-06-18] MEDS: CLOPIDOGREL BISULFATE 75 MG TABLET PO SCH (09:32)
[2018-06-18] MEDS: FAMOTIDINE (20 MG) 20 MG TABLET PO SCH (09:38)
[2018-06-18] MEDS: POLYETHYLENE GLYCOL 3350 17 GM POWD.PACK PO SCH (11:33)
[2018-06-18] MEDS ORDERED: LEVO500T90 PO (14:26)
[2018-06-18 16:00] VITALS: BP 125/66
--- NOTE | 2018-06-18 17:00 | NUR ---
MS RN NOTES ORDERED TO D/C TODAY BUT ACCORDING TO THE INSURANCE,HOLDING PT ONE MORE DAY PER FUSING MACHINE FEEDER.
--- NOTE | 2018-06-18 18:49 | NUR ---
MS RN CLOSING NOTES PT IS LYING ON BED,CONFUSED AND STAYING COMFORTABLE ON BED AND FARSI SPEAKING.ON ROOM AIR,TOLERATING WELL.NO SOB AND ACUTE DISTRESS NOTED.B/L SOFT RESTRAINTS PRESENT,SKIN IS INTACT.IV LINE IS ON RIGHT AC G 20 WITH IV FLUIDS RUNNING 0.9% NS @75CC/HR.SITE IS CLEAN,DRY AND INTACT.NO INFILTRATION NOTED.BED IS IN LOW POSITION AND LOCKED,CALL LIGHT IS WITHIN REACH.ENDORSED TO PLC CONTROLS ENGINEER RN FOR MARIELA AND FOLLOW UP THE DISCHARGE PROCESS.
[2018-06-18 20:00] VITALS: BP 105/60
[2018-06-18] MEDS ORDERED: LEVOFLOXACIN 750 MG /D5W 150ML 750 MG in PREMIX 1 EA IV SCH (20:00)
--- NOTE | 2018-06-18 20:00 | NUR ---
RN INITIAL NOTES RECEIVED PT LYING ON BED,CONFUSED AND AGITATED AND POLISH SPEAKING.ON ROOM AIR,TOLERATING WELL.NO SOB AND ACUTE DISTRESS NOTED.B/L SOFT RESTRAINTS PRESENT,SKIN IS INTACT.IV LINE IS ON RIGHT AC G 20 WITH IV FLUIDS RUNNING 0.9% NS @75CC/HR.SITE IS CLEAN,DRY AND INTACT.NO INFILTRATION NOTED.BED IS IN LOW AND LOCKED POSITION,CALL LIGHT IS WITHIN REACH.WILL CONTINUE TO MONITOR CLOSELY.
[2018-06-18] MEDS: ENOXAPARIN SODIUM 40 MG/0.4 ML DISP.SYRIN SQ SCH (21:56)
[2018-06-18] MEDS: MIRTAZAPINE 15 MG TABLET PO SCH (21:56)
[2018-06-19 04:00] VITALS: BP 130/74
--- NOTE | 2018-06-19 06:56 | NUR ---
RN CLOSING NOTES PT IS LYING ON BED,CONFUSED AND STAYING COMFORTABLE, CZECH SPEAKING.ON ROOM AIR,TOLERATING WELL.NO SOB AND ACUTE DISTRESS NOTED.B/L SOFT RESTRAINTS PRESENT,SKIN IS INTACT.IV LINE IS ON RIGHT AC G 20 WITH IV FLUIDS RUNNING 0.9% NS @75CC/HR.SITE IS CLEAN,DRY AND INTACT.NO INFILTRATION NOTED.BED IS IN LOW POSITION AND LOCKED,CALL LIGHT IS WITHIN REACH.ENDORSED TO AM SHIFT RN FOR MARIELA. .
--- NOTE | 2018-06-19 07:05 | NUR ---
MS RN OPENING NOTES RECEIVED PT LYING ON BED,CONFUSED,FARSI SPEAKING.ON ROOM AIR,TOLERATING WELL.NO SOB AND ACUTE DISTRESS NOTED.B/L SOFT RESTRAINTS PRESENT,SKIN IS INTACT.IV LINE IS ON RIGHT AC G 20 WITH IV FLUIDS RUNNING 0.9% NS @75CC/HR.SITE IS CLEAN,DRY AND INTACT.NO INFILTRATION NOTED.BED IS IN LOW POSITION AND LOCKED,CALL LIGHT IS WITHIN REACH.WILL CONTINUE TO MONITOR THE PT CLOSELY
[2018-06-19 07:08] LABS: ALANINE AMINOTRANSFERASE 15 U/L (12-78); ASPARTATE AMINOTRANSFERASE 18 U/L (15-37)
[2018-06-19 07:22] LABS: VALPROIC ACID 32 ug/mL (50-100)
--- NOTE | 2018-06-19 07:45 | NUR ---
MS RN NOTES NOTED WITH BLUISH DISCOLORATION ON THE TIPS OF LEFT FINGER WHEN WE ARE TRYING TO CHECK THE BLOOD SUGAR,LOOSENED THE WRIST RESTRAINTS,CHECK THE PULSE WHICH IS STRONG PALPABLE PULSE ON LEFT HAND,CHECKED THE O2 SATURATION IS 99% ON ROOM AIR.AFTER 3MT IT GET SUBSIDED AND THE BACK TO NORMAL COLOR.PT HAS NO CHANGE OF CONDITION NOTED.
[2018-06-19] MEDS: BLOOD SUGAR DIAGNOSTIC 1 EACH STRIP IN SCH ×3 (07:53→16:59)
[2018-06-19] MEDS: FAMOTIDINE (20 MG) 20 MG TABLET PO SCH (07:54)
[2018-06-19 08:00] VITALS: BP_SYST 119; BP_SYST 90; BP_DIAS 62; BP_DIAS 70
[2018-06-19] MEDS: CLOPIDOGREL BISULFATE 75 MG TABLET PO SCH (08:29)
[2018-06-19] MEDS: CHOLECALCIFEROL 1,000 UNIT TABLET (VIT D3) PO SCH (08:29)
[2018-06-19] MEDS: AMLODIPINE BESYLATE 2.5 MG TABLET PO SCH (08:30)
[2018-06-19] MEDS: MULTIVIT W/MINERALS 1 TAB TABLET PO SCH (08:30)
[2018-06-19] MEDS: PSYLLIUM SEED 1 PKT PACKET PO SCH ×2 (08:30→16:48)
[2018-06-19] MEDS: CYANOCOBALAMIN 500 MCG TABLET PO SCH (08:30)
[2018-06-19] MEDS: QUETIAPINE FUMARATE 25 MG TABLET PO SCH ×2 (08:30→16:47)
[2018-06-19] MEDS: DIVALPROEX SODIUM 500 MG TABLET.DR PO SCH ×2 (08:30→16:47)
[2018-06-19] MEDS: DOCUSATE SODIUM 250 MG CAPSULE PO SCH (08:30)
[2018-06-19] MEDS: CALCIUM CARBONATE 500 MG TAB.CHEW PO SCH (08:31)
[2018-06-19] MEDS: OXCARBAZEPINE 150 MG TABLET PO SCH ×2 (08:31→16:47)
[2018-06-19] MEDS: LACTOBACILLUS RHAMNOSUS GG 1 EACH CAP.SPRINK PO SCH ×2 (08:31→16:47)
[2018-06-19] MEDS: IV NS 0.9% 1,000 ML IV PRN (11:19)
[2018-06-19] MEDS: POLYETHYLENE GLYCOL 3350 17 GM POWD.PACK PO SCH (12:02)
--- NOTE | 2018-06-19 14:00 | NUR ---
MS RN NOTES PT IS OFF WITH B/L WRIST RESTRAINTS FROM [id number],NOW THE PT IS AGITATED NOW.PUT BACK TO B/L SOFT WRIST RESTRAINTS.
[2018-06-19 16:00] VITALS: BP 111/57
--- NOTE | 2018-06-19 18:54 | NUR ---
MS DRAFTING ENGINEER NOTES PT IS DISCHARGED TO [facility] VIA AMBULANCE.PT NOTED WITH MILD AGITATION.SKIN ASSESSMENT IS DONE,INTACT.VITAL SIGNS CHECKED AND RECORDED.IV LINE ON RIGHT AC G20 IS REMOVED.NO BLEEDING NOTED.ON ROOM AIR,TOLERATING WELL.NO SOB AND ACUTE DISTRESS NOTED.BELONGINGS ARE CHECKED AND VERIFIED WITH CHARGE NURSE.NO COMPLICATIONS NOTED.
== END 2018-06-19 18:55 | DRG 871 ==
LOC: ER 18:49 → TELE1 20:31 → MEDSG1 22:13 → TELE1 22:15 → MEDSG1 06-17 10:05
PROVIDERS: ADMIT Nurse Practitioner Acute Care; ATTEND Student in an Organized Health Care Education/Training Program
DX: A41.9 Sepsis, unspecified organism (principal); J18.9 Pneumonia, unspecified organism; G93.40 Encephalopathy, unspecified; E87.1 Hypo-osmolality and hyponatremia; E87.2 Acidosis; F02.81 Dementia in other diseases classified elsewhere, unspecified severity, with behavioral disturbance; E11.9 Type 2 diabetes mellitus without complications; I10 Essential (primary) hypertension; I25.10 Atherosclerotic heart disease of native coronary artery without angina pectoris; Z88.0 Allergy status to penicillin; E78.5 Hyperlipidemia, unspecified; G40.909 Epilepsy, unspecified, not intractable, without status epilepticus; I25.2 Old myocardial infarction; D72.829 Elevated white blood cell count, unspecified; E86.0 Dehydration; G30.9 Alzheimer's disease, unspecified; F31.9 Bipolar disorder, unspecified
CPT/HCPCS: 36415; 71045-TC; 80048-TC; 80061-TC; 80076-TC; 80164-TC; 81000-TC; 82962-TC; 83605-TC; 83735-TC; 84100-TC; 84443-TC; 84450-TC; 84460-TC; 84484-TC; 85025-TC; 85730-TC; 87040-TC; 87081-TC; 87086-TC; 92526; 92611-TC; A4216; G0378; J1650; J1815; J1956; J7030

== ENCOUNTER 2020-03-11 21:16 | Inpatient (IN) | payer MEDICARE, OTHER ==
[~2020-03-11] VITALS: Ht 167.6 cm; Wt 63.0 kg
[~2020-03-11 21:16] MED LIST changes: +CALC500T PO; -CHOL100040 PO; +CHOL100044 PO; -CLON0.5T12 PO; +CLON0.5T4 PO; +CYAN-51 PO; -CYAN10006 IM; -CYAN10009 PO; +DIVA500T2 PO; -ERGO500014 PO; -HYDR-4384 PO; -INSU100I34 SQ; +LEVO500T90 PO; +METF-440 PO; -OXCA150T13 PO; +OXCA300T4 PO; -TEST200V3 IM
[2020-03-11] MEDS ORDERED: ACETAMINOPHEN 650 MG/SUPP.RECT RC ONE ×2 (21:23→21:30)
--- NOTE | 2020-03-11 21:29 | NUR ---
BIBEMS FROM [facility] C/O FEVER, GEN RASH, AND LOW O2 SAT 84% RA. PT PLACED ON 4L NC SAT 96%. NOTED TO BE HYPOTENSIVE 88/50, IV RF 18G INITIATED, BLOOD WORK COLLECTED, SENT TO LAB. COVID SWABBED, SENT TO LAB. UPON CHECKING RECTAL TEMP 103, GIVEN TYLENOL AND COOLING MEASURES INITIATED, WILL CONTINUE TO MONITOR.
[2020-03-11] MEDS ORDERED: IV NS 0.9% 1,000 ML BAG IV ONE (21:30)
[2020-03-11 22:03] LABS: BASOPHILS % (AUTO) 0.6 % (0.0-2.0); EOSINOPHILS % (AUTO) 0.1 % (0.0-6.0); HEMATOCRIT 36 % (39-51); HEMOGLOBIN 11.6 g/dL (13.5-17.5); LYMPHOCYTES # (AUTO) 0.5 /CMM (0.8-4.8); LYMPHOCYTES % (AUTO) 10.3 % (20.0-44.0); MEAN CORPUSCULAR HGB CONC 32 g/dl (31.0-36.0); MEAN CORPUSCULAR VOLUME 75 fL (80-96); MONOCYTES # (AUTO) 0.2 /CMM (0.1-1.30); MONOCYTES % (AUTO) 3.6 % (2.0-12.0); NEUTROPHILS # (AUTO) 4.1 /CMM (1.8-8.9); NEUTROPHILS % (AUTO) 85.4 % (43.0-81.0); PLATELET COUNT (AUTO) 256 /CMM (150-450); RED BLOOD CELL COUNT(AUTO) 4.77 MIL/uL (4.5-6.0); WHITE BLOOD COUNT (AUTO) 4.8 K/uL (4.3-11.0)
--- NOTE | 2020-03-11 22:05 | NUR ---
BG 361
--- NOTE | 2020-03-11 22:05 | NUR ---
BROUGHT TO CT
[2020-03-11 22:19] LABS: ALANINE AMINOTRANSFERASE 267 U/L (12-78); ALKALINE PHOSPHATASE 86 U/L (46-116); ASPARTATE AMINOTRANSFERASE 167 U/L (15-37); BILIRUBIN,DIRECT 0.1 mg/dL (0.0-0.2); BILIRUBIN,TOTAL 0.3 mg/dL (0.2-1.0); CALCIUM, SERUM 7.8 mg/dL (8.5-10.1); CARBON DIOXIDE 21 mmol/L (21-32); CHLORIDE 102 mmol/L (98-107); CREATININE 1.8 mg/dL (0.6-1.3); POTASSIUM 4.2 mmol/L (3.5-5.1); SODIUM SERUM 135 mmol/L (136-145); TOTAL PROTEIN, SERUM 6.6 g/dL (6.4-8.2); UREA NITROGEN, BLOOD 28 mg/dL (7-18)
[2020-03-11 22:22] LABS: GLUCOSE 395 mg/dL (74-106)
[2020-03-11] MEDS ORDERED: LIDOCAINE 2% JEL UROJET 10 ML MM ONE (22:36)
--- NOTE | 2020-03-11 22:37 | NUR ---
Lab called regarding negative covid result.
[2020-03-11] MEDS ORDERED: AZITHROMYCIN 500 MG VIAL ONE (22:49)
[2020-03-11] MEDS ORDERED: ASPIRIN 300 MG/SUPP.RECT RC ONE ×2 (22:49→23:00)
[2020-03-11] MEDS ORDERED: methylPREDNISolone SOD SUCC 125 MG/2ML VIAL ONE (22:49)
[2020-03-11] MEDS ORDERED: methylPREDNISolone SOD SUCC 125 MG/2ML VIAL IV ONE (23:00)
[2020-03-11] MEDS ORDERED: AZITHROMYCIN 500 MG in IV D5W 250 ML IV ONE (23:00)
[2020-03-11 23:05] LABS: BILIRUBIN,URINE NEGATIVE (NEGATIVE); COLOR,URINE YELLOW (YELLOW); LEUKOCYTE ESTERASE ,URINE NEGATIVE (NEGATIVE); NITRITE, URINE NEGATIVE (NEGATIVE); PH,URINE 5.5 (5.0-8.0); PROTEIN,URINE TRACE mg/dl (NEGATIVE); UGLUCOSE 250 MG/DL mg/dL (NEGATIVE); UROBILINOGEN,URINE 0.2 EU/dL (0.2)
--- NOTE | 2020-03-11 23:10 | NUR ---
DR. CASTRO SPEAKING WITH DR. YULISA PORTER REGARDING ADMISSION
--- NOTE | 2020-03-11 23:21 | NUR ---
SPOKE TO THE SON REGARDING PLAN OF CARE. PT'S SON AWARE.
[2020-03-12 00:12] LABS: BACTERIA,URINE None seen /HPF (None Seen); RBC,URINE 0-2 /HPF (0-2); SQUAMOUS EPITHELIAL CELL,UR Few /HPF (None Seen); URINE AMORPHOUS URATE Few /HPF (None Seen); WBC,URINE 0-2 /HPF (0-3)
--- NOTE | 2020-03-12 02:36 | NUR ---
PT TEMP NOTED TO BE 99.2
[2020-03-12] MEDS ORDERED: DEXTROSE 50%-WATER 50 ML DISP.SYRIN IV PRN (05:00)
[2020-03-12] MEDS ORDERED: ACETAMINOPHEN 325 MG TABLET PO PRN (05:00)
[2020-03-12] MEDS ORDERED: ALBUTEROL FS 2.5 MG/3 ML VIAL.NEB IH PRN (05:00)
[2020-03-12] MEDS ORDERED: MEROPENEM 500 MG in IV NS 0.9% 50 ML IV SCH (05:00)
[2020-03-12] MEDS ORDERED: MORPHINE SULFATE INJ 2 MG/ML DISP.SYRIN IV PRN (05:00)
[2020-03-12] MEDS ORDERED: MEROPENEM 500 MG VIAL IV ONE (05:29)
[2020-03-12 05:48] LABS: BASOPHILS % (AUTO) 0.3 % (0.0-2.0); HEMATOCRIT 36 % (39-51); HEMOGLOBIN 11.6 g/dL (13.5-17.5); LYMPHOCYTES # (AUTO) 0.4 /CMM (0.8-4.8); LYMPHOCYTES % (AUTO) 13.1 % (20.0-44.0); MEAN CORPUSCULAR HGB CONC 32 g/dl (31.0-36.0); MEAN CORPUSCULAR VOLUME 75 fL (80-96); MONOCYTES # (AUTO) 0.1 /CMM (0.1-1.30); MONOCYTES % (AUTO) 2.2 % (2.0-12.0); NEUTROPHILS # (AUTO) 2.6 /CMM (1.8-8.9); NEUTROPHILS % (AUTO) 84.4 % (43.0-81.0); PLATELET COUNT (AUTO) 235 /CMM (150-450); RED BLOOD CELL COUNT(AUTO) 4.85 MIL/uL (4.5-6.0); WHITE BLOOD COUNT (AUTO) 3.1 K/uL (4.3-11.0)
[2020-03-12 06:14] LABS: ALBUMIN 1.9 g/dL (3.4-5.0); BILIRUBIN,TOTAL 0.2 mg/dL (0.2-1.0); CALCIUM, SERUM 7.7 mg/dL (8.5-10.1); CREATININE 1.2 mg/dL (0.6-1.3); MAGNESIUM 2.2 mg/dL (1.8-2.4); PHOSPHORUS 3.8 mg/dL (2.5-4.9); POTASSIUM 4.1 mmol/L (3.5-5.1); TOTAL PROTEIN, SERUM 5.9 g/dL (6.4-8.2)
[2020-03-12 06:25] LABS: THYROID STIMULATING HORMONE 0.655 uIU/mL (0.358-3.74)
[2020-03-12] MEDS ORDERED: ALBUTEROL SULFATE 8 GM HFA.AER.AD IH PRN (07:00)
[2020-03-12] MEDS ORDERED: INSULIN REGULAR, HUMAN 100 UNIT/ML 10 ML VIAL ONE (07:20)
[2020-03-12] MEDS: BLOOD SUGAR DIAGNOSTIC 1 EACH STRIP IN SCH ×3 (07:24→17:30)
[2020-03-12] MEDS: INSULIN REGULAR, HUMAN 100 UNIT/ML 3 ML VIAL SQ PRN ×3 (07:24→18:07)
--- NOTE | 2020-03-12 07:25 | NUR ---
PER MD STONEY SANTIAGO. PHARMACY NOTIFIED.
[2020-03-12] MEDS ORDERED: FAMOTIDINE (20 MG) 20 MG TABLET ONE (07:28)
[2020-03-12] MEDS: FAMOTIDINE (20 MG) 20 MG TABLET PO SCH (07:30)
--- NOTE | 2020-03-12 07:30 | NUR ---
RECEIVED REPORT FROM NICK WOODS FOR MARIELA. PT IS AAOX0, NOT IN RESPIRATORY DISTRESS, ON O2 AT 2LPM VIA NC, V/S STABLE, KEPT RESTED AND COMFORTABLE. WILL CONTINUE TO MONITOR.
--- NOTE | 2020-03-12 07:34 | NUR ---
PT UNABLE TO TAKE PO MED PT IS AAOX0.
--- NOTE | 2020-03-12 07:38 | NUR ---
REPORT GIVEN TO MONICA ROMERO FOR MARIELA
--- NOTE | 2020-03-12 07:45 | NUR ---
PER PT IS ON NPO NOW.
--- NOTE | 2020-03-12 07:47 | NUR ---
PER BOLUS 500ML OF NORMAL SALINE.
[2020-03-12] MEDS ORDERED: DOCUSATE SODIUM 250 MG CAPSULE PO SCH (09:00)
[2020-03-12] MEDS: CHOLECALCIFEROL 1,000 UNIT TABLET (VIT D3) PO SCH (09:00)
[2020-03-12] MEDS: LACTOBACILLUS RHAMNOSUS GG 1 EACH CAP.SPRINK PO SCH ×2 (09:00→16:58)
[2020-03-12] MEDS: clonazePAM 0.5 MG TABLET PO SCH ×3 (09:00→16:58)
[2020-03-12] MEDS: QUETIAPINE FUMARATE 25 MG TABLET PO SCH ×3 (09:00→21:16)
[2020-03-12] MEDS: DIVALPROEX SODIUM 500 MG TABLET.DR PO SCH ×2 (09:00→16:58)
[2020-03-12] MEDS: PSYLLIUM SEED 1 PKT PACKET PO SCH ×2 (09:00→16:58)
[2020-03-12] MEDS: OXCARBAZEPINE 150 MG TABLET PO SCH ×2 (09:00→16:57)
[2020-03-12] MEDS: CLOPIDOGREL BISULFATE 75 MG TABLET PO SCH (09:00)
[2020-03-12] MEDS: DEXAMETHASONE SOD PHOSPHATE 10 MG/ML VIAL IV SCH (09:05)
[2020-03-12] MEDS ORDERED: ENOXAPARIN SODIUM 40 MG/0.4 ML DISP.SYRIN SQ ONE (10:37)
[2020-03-12] MEDS: ENOXAPARIN SODIUM 40 MG/0.4 ML DISP.SYRIN SQ SCH (10:38)
[2020-03-12] MEDS: POLYETHYLENE GLYCOL 3350 17 GM POWD.PACK PO SCH (11:00)
[2020-03-12] MEDS ORDERED: HYDROCORTISONE SOD SUCCINATE 100 MG/2 ML VIAL ONE (11:21)
[2020-03-12] MEDS: HYDROCORTISONE SOD SUCCINATE 100 MG/2 ML VIAL IV SCH ×2 (11:21→21:15)
--- NOTE | 2020-03-12 11:21 | NUR ---
PT IS ON NPO. PT IS AAOX0. AWARE.
[2020-03-12] MEDS ORDERED: methylPREDNISolone SOD SUCC 125 MG/2ML VIAL IV SCH (12:00)
[2020-03-12] MEDS: MULTIVITAMINS,THERAGRAN 1 UDTAB TABLET PO SCH (13:00)
[2020-03-12] MEDS ORDERED: LEVOFLOXACIN 750 MG /D5W 150ML 150 ML IV ONE (13:22)
[2020-03-12] MEDS: LEVOFLOXACIN 750 MG /D5W 150ML 750 MG in PREMIX 1 EA IV SCH (13:28)
--- NOTE | 2020-03-12 18:22 | NUR ---
BED 116 (WILL TAKE REPORT ON NEXT SHIFT)
--- NOTE | 2020-03-12 19:49 | NUR ---
REPORT GIVEN TO NICK CHAN FOR MARIELA, PT WILL BE TRANSPORTED TO 1ST FLOOR
--- NOTE | 2020-03-12 19:55 | NUR ---
RN ADMITTING NOTE RECEIVED PATIENT FROM ER VIA GURNEY; ADMITTING DIAGNOSIS OF SEPSIS/ACS,COVID PCR RESULTS PENDING. PATIENT DEMENTED/CONFUSED. IN NO S/SX OF ACUTE DISTRESS AT THIS TIME. PATIENT'S BREATHING IS EVEN AND UNLABORED. PATIENT IS ON 4 L OF OXYGEN VIA NC, TOLERATING WELL. SATURATING 96% AT THE MOMENT. PATIENT ON TELE MONITOR READING SR. NOTED IV SITE ON RFA 18G; PATENT AND FLUSHING, SALINE LOCKED. NO S/S OF INFECTION OR INFILTRATION. NOTED RASHES AT BUE, TRUNK AND REDNESS OF BOTH HEELS/FEET. PHOTOS TAKEN AND PLACED IN CHART. PATIENT KEPT CLEAN , DRY AND COMFORTABLE.SAFETY MEASURES HAVE BEEN PROVIDED AND IMPLEMENTED. PATIENT BED ALARM IS ON. HEAD OF BED ELEVATED. BED IS LOCKED, IN LOWEST POSITION AND SIDE RAILS UP. CALL LIGHT WITHIN REACH OF THE PATIENT. ISOLATION PRECAUTIONS IN PLACE. WILL CONTINUE TO MONITOR AND REASSESS FOR ANY CHANGES. WILL ATTEND TO ALL MD ADMITTING ORDERS.
[2020-03-12 20:00] VITALS: BP 95/41
--- NOTE | 2020-03-12 20:00 | NUR ---
PT TRANSPORTED TO 1ST FLOOR
[2020-03-12] MEDS ORDERED: AZITHROMYCIN 500 MG in IV D5W 250 ML IV SCH (21:00)
[2020-03-12] MEDS: MIRTAZAPINE 15 MG TABLET PO SCH (21:16)
[2020-03-13] VITALS (7 sets, daily range): BP systolic 76–112; BP diastolic 36–50
[2020-03-13] MEDS: BLOOD SUGAR DIAGNOSTIC 1 EACH STRIP IN SCH ×5 (00:06→22:37)
[2020-03-13] MEDS: INSULIN REGULAR, HUMAN 100 UNIT/ML 3 ML VIAL SQ PRN ×5 (00:07→22:41)
--- NOTE | 2020-03-13 04:00 | NUR ---
RN NOTE NOTED LOW HARITHA OF 76/43. PER MD NOTE, HYPOTENSION AND BRONCHOSPASM LIKELY SECONDARY TO COVID VACCINE. PLACED PATIENT ON TRENDELENBURG POSITION. LATEST BP 94/31. WILL CONTINUE TO MONITOR PATIENT.
[2020-03-13] MEDS: HYDROCORTISONE SOD SUCCINATE 100 MG/2 ML VIAL IV SCH ×3 (05:28→23:24)
[2020-03-13] MEDS ORDERED: IV NS 0.9% 500 ML IV ONE ×2 (07:00→18:30)
--- NOTE | 2020-03-13 07:30 | NUR ---
BUSINESS PERFORMANCE MANAGER OPENING NOTES PATIENT IS ALERT AND RESPONSIVE TO VERBAL AND PHYSICAL STIMULI. HE IS ON 02 2-4 LITERS VIA N/C WITH 02 SATURATION OF 95%. PER REPORT, PATIENT HAD BOLUS NORMAL SALINE 500 ML X1. CURRENTY NOTED WITH BP OF 94/58. DIOP CATH INTACT AND HANGING TO GRAVITY WITH CLEAR YELLOW URINE IN THE BAG. NO C/O PAIN OR DISCOMFORT AT THIS TIME. WILL CONTINUE TO MONITOR. CALL LIGHT WITH IN REACH. BED IS IN LOWEST AND LOCKED POSITION.
[2020-03-13] MEDS: DEXAMETHASONE SOD PHOSPHATE 10 MG/ML VIAL IV SCH (08:46)
[2020-03-13] MEDS: LACTOBACILLUS RHAMNOSUS GG 1 EACH CAP.SPRINK PO SCH ×2 (08:46→17:25)
[2020-03-13] MEDS: clonazePAM 0.5 MG TABLET PO SCH ×3 (08:46→17:25)
[2020-03-13] MEDS: DIVALPROEX SODIUM 500 MG TABLET.DR PO SCH ×2 (08:46→17:25)
[2020-03-13] MEDS: OXCARBAZEPINE 150 MG TABLET PO SCH ×2 (08:47→17:25)
[2020-03-13] MEDS: PSYLLIUM SEED 1 PKT PACKET PO SCH ×2 (08:47→17:26)
[2020-03-13] MEDS: MULTIVITAMINS,THERAGRAN 1 UDTAB TABLET PO SCH (08:47)
[2020-03-13] MEDS: CLOPIDOGREL BISULFATE 75 MG TABLET PO SCH (08:51)
[2020-03-13] MEDS: DOCUSATE SODIUM LIQ 100 MG/10 ML UDC PO SCH (08:51)
[2020-03-13] MEDS: CHOLECALCIFEROL 1,000 UNIT TABLET (VIT D3) PO SCH (08:51)
[2020-03-13] MEDS: QUETIAPINE FUMARATE 25 MG TABLET PO SCH ×3 (08:53→22:25)
[2020-03-13] MEDS: ENOXAPARIN SODIUM 40 MG/0.4 ML DISP.SYRIN SQ SCH (08:57)
[2020-03-13] MEDS: FAMOTIDINE (20 MG) 20 MG TABLET PO SCH (08:59)
[2020-03-13 10:16] LABS: THYROID STIMULATING HORMONE 0.688 uIU/mL (0.358-3.74)
[2020-03-13] MEDS: POLYETHYLENE GLYCOL 3350 17 GM POWD.PACK PO SCH (11:44)
--- NOTE | 2020-03-13 18:50 | NUR ---
PATIENT NOTED WITH BP OF 85/48 AND PULSE OF 84. INFORMED DR LUA AND RECEIVED ORDERS TO GIVE IV NORMAL SALINE 500 ML X1 DOSE. PATIENT NOTED WITH INFILTRATED IV SITE TO RIGHT FOREARM. NEW IV SITE STARTED TO LEFT FOREARM WITH PM SHIFT NURSE. IV FLUIDS STARTED . NEXT SHIFT TO FOLLOW UP FOR COMPLETION.
--- NOTE | 2020-03-13 19:50 | NUR ---
PRODUCTION DESIGNER CLOSING NOTES PATIENT IS ALERT AND RESPONSIVE TO VERBAL AND PHYSICAL STIMULI. HE IS ON 02 2 LITERS VIA N/C WITH 02 SATURATION OF 96%. BOLUS FEEDING 500 ML X1 RUNNING WELL. ENDORSED TO NEXT SHIFT TO FOLLOW UP AND MONITOR THE BLOOD PRESSURE. CURRENT BLOOD PRESSURE OF 112/58. DIOP CATH NOTED WITH 300 CC DURING SHIFT OF CLEAR YELLOW URINE, ENDORSED TO NEXT SHIFT FOR MARIELA.
--- NOTE | 2020-03-13 20:00 | NUR ---
PATCH FINISHER OPENING NOTE PATIENT IS ALERT AND RESPONDS TO PHYSICAL STIMULI. ON 2 L N/C WITH 02 SATURATION OF 94%. BOLUS FEEDING 500 ML X1 RUNNING WELL. ENDORSED TO NEXT SHIFT TO FOLLOW UP AND MONITOR THE BLOOD PRESSURE. CURRENT BLOOD PRESSURE OF 112/58. DIOP CATH NOTED WITH 300 CC DURING SHIFT OF CLEAR YELLOW URINE, ENDORSED TO NEXT SHIFT FOR MARIELA. Addendum: 03/14/20 at 0325 by CRISTIN SIM RN ERROR ON NOTE ENTRY. DIOP CATHERTER DRAINING YELLOW URINE. BOLUS 500 ML NS INFUSING TO NEW IV STARTED TO LEFT WRIST #22. IV REMVOED FROM RIGHT FOREARM 18 GAUGE INFILTRATED. CATHETER REMOVED AND INTACT. PT TO BE TRANSFERRED TO [facility].
--- NOTE | 2020-03-13 21:30 | NUR ---
REPORT GIVENT TO DANIS RAMIREZ AT 1141 PATIENT TRANSFERRED TO [facility] BED 2 IN STABLE CONDITION.
[2020-03-13 22:00] LABS: BASOPHILS # (AUTO) 0.1 /CMM (0.0-0.2); BASOPHILS % (AUTO) 1.1 % (0.0-2.0); EOSINOPHILS % (AUTO) 0.6 % (0.0-6.0); HEMATOCRIT 37 % (39-51); HEMOGLOBIN 11.7 g/dL (13.5-17.5); LYMPHOCYTES % (AUTO) 16.8 % (20.0-44.0); MEAN CORPUSCULAR HGB CONC 32 g/dl (31.0-36.0); MEAN CORPUSCULAR VOLUME 75 fL (80-96); MONOCYTES # (AUTO) 0.2 /CMM (0.1-1.30); MONOCYTES % (AUTO) 4.3 % (2.0-12.0); NEUTROPHILS # (AUTO) 4.4 /CMM (1.8-8.9); NEUTROPHILS % (AUTO) 77.2 % (43.0-81.0); PLATELET COUNT (AUTO) 238 /CMM (150-450); RED BLOOD CELL COUNT(AUTO) 4.91 MIL/uL (4.5-6.0); WHITE BLOOD COUNT (AUTO) 5.7 K/uL (4.3-11.0)
[2020-03-13] MEDS: MIRTAZAPINE 15 MG TABLET PO SCH (22:24)
[2020-03-13 23:21] LABS: BILIRUBIN,TOTAL 0.2 mg/dL (0.2-1.0); CALCIUM, SERUM 8.2 mg/dL (8.5-10.1); MAGNESIUM 2.4 mg/dL (1.8-2.4); PHOSPHORUS 2.2 mg/dL (2.5-4.9); TOTAL PROTEIN, SERUM 6.3 g/dL (6.4-8.2)
[2020-03-14] VITALS (9 sets, daily range): BP systolic 76–140; BP diastolic 43–98
[2020-03-14] MEDS: BLOOD SUGAR DIAGNOSTIC 1 EACH STRIP IN SCH ×4 (06:30→22:15)
[2020-03-14] MEDS: INSULIN REGULAR, HUMAN 100 UNIT/ML 3 ML VIAL SQ PRN ×4 (06:32→22:25)
[2020-03-14 07:22] LABS: BASOPHILS % (AUTO) 0.3 % (0.0-2.0); EOSINOPHILS % (AUTO) 0.1 % (0.0-6.0); HEMATOCRIT 39 % (39-51); HEMOGLOBIN 12.5 g/dL (13.5-17.5); LYMPHOCYTES % (AUTO) 14.5 % (20.0-44.0); MEAN CORPUSCULAR HGB CONC 32 g/dl (31.0-36.0); MEAN CORPUSCULAR VOLUME 74 fL (80-96); MONOCYTES # (AUTO) 0.3 /CMM (0.1-1.30); MONOCYTES % (AUTO) 5.1 % (2.0-12.0); NEUTROPHILS # (AUTO) 5.3 /CMM (1.8-8.9); PLATELET COUNT (AUTO) 251 /CMM (150-450); RED BLOOD CELL COUNT(AUTO) 5.24 MIL/uL (4.5-6.0); WHITE BLOOD COUNT (AUTO) 6.6 K/uL (4.3-11.0)
--- NOTE | 2020-03-14 07:30 | NUR ---
STEAM BLOCKER NOTES PT IN BED, AWAKE, CONFUSED, NO SIGN OF PAIN OR DISTRESS, F/C IN PLACE DRAINING WELL WITH CLEAR, YELLOW URINE, BED ALARM ON, KEPT COMFORTABLE.
[2020-03-14 08:25] LABS: ALBUMIN 2.1 g/dL (3.4-5.0); BILIRUBIN,TOTAL 0.2 mg/dL (0.2-1.0); CALCIUM, SERUM 8.5 mg/dL (8.5-10.1); CREATININE 0.9 mg/dL (0.6-1.3); MAGNESIUM 2.4 mg/dL (1.8-2.4); POTASSIUM 3.5 mmol/L (3.5-5.1); TOTAL PROTEIN, SERUM 6.3 g/dL (6.4-8.2)
[2020-03-14] MEDS: clonazePAM 0.5 MG TABLET PO SCH ×3 (09:16→17:35)
[2020-03-14] MEDS: PSYLLIUM SEED 1 PKT PACKET PO SCH ×2 (09:16→17:35)
[2020-03-14] MEDS: QUETIAPINE FUMARATE 25 MG TABLET PO SCH ×3 (09:17→22:00)
[2020-03-14] MEDS: MULTIVITAMINS,THERAGRAN 1 UDTAB TABLET PO SCH (09:17)
[2020-03-14] MEDS: DIVALPROEX SODIUM 500 MG TABLET.DR PO SCH ×2 (09:17→17:35)
[2020-03-14] MEDS: LACTOBACILLUS RHAMNOSUS GG 1 EACH CAP.SPRINK PO SCH ×2 (09:17→17:35)
[2020-03-14] MEDS: FAMOTIDINE (20 MG) 20 MG TABLET PO SCH (09:17)
[2020-03-14] MEDS: OXCARBAZEPINE 150 MG TABLET PO SCH ×2 (09:17→17:36)
[2020-03-14] MEDS: CHOLECALCIFEROL 1,000 UNIT TABLET (VIT D3) PO SCH (09:17)
[2020-03-14] MEDS: DOCUSATE SODIUM LIQ 100 MG/10 ML UDC PO SCH (09:17)
[2020-03-14] MEDS: CLOPIDOGREL BISULFATE 75 MG TABLET PO SCH (09:18)
[2020-03-14] MEDS: ENOXAPARIN SODIUM 40 MG/0.4 ML DISP.SYRIN SQ SCH (09:36)
[2020-03-14] MEDS: POLYETHYLENE GLYCOL 3350 17 GM POWD.PACK PO SCH (11:17)
[2020-03-14] MEDS: LEVOFLOXACIN 750 MG /D5W 150ML 750 MG in PREMIX 1 EA IV SCH (12:41)
[2020-03-14] MEDS: HYDROCORTISONE SOD SUCCINATE 100 MG/2 ML VIAL IV SCH ×2 (12:42→21:01)
--- NOTE | 2020-03-14 19:00 | NUR ---
RN MS NOTES PT IN BED, RESTING, NON VERBAL, NO SIGN OF PAIN OR DISTRESS, CALL LIGHT WITHIN REACH, PM CARE PROVIDED, PM MEDS GIVEN ORDERED, KEPT WARM AND COMFORTABLE IN BED, SAFETY PRECAUTIONS OBSERVED.
[2020-03-14] MEDS: MIRTAZAPINE 15 MG TABLET PO SCH (22:00)
--- NOTE | 2020-03-14 22:46 | NUR ---
RN NOTE PATIENT'S BP IS DECREASED 86/52, 90, 20, 97.5, 98% @ 4 LPM VIA NC. HELD REMERON & SEROQUEL SCHEDULED. PATIENT IS INTERMITTENTLY SLEEPING, CALM & RELAXED AT THIS TIME. WILL CONTINUE TO MONITOR.
--- NOTE | 2020-03-14 23:45 | NUR ---
RN NOTE PATIENT WAS GIVEN SNACK, TOLERATED WELL. HOB ELEVATED TO 30 DEGREE AT ALL TIMES. VITALS ARE 103/58, 94, 20, 98.1, 96% @ 4LPM VIA NC. PATIENT IS AWAKE AT THIS TIME. CALM & RELAXED. WILL CONTINUE TO MONITOR.
[2020-03-15] MEDS: HYDROCORTISONE SOD SUCCINATE 100 MG/2 ML VIAL IV SCH ×3 (05:28→22:16)
[2020-03-15] MEDS: BLOOD SUGAR DIAGNOSTIC 1 EACH STRIP IN SCH ×3 (07:02→16:39)
[2020-03-15] MEDS: INSULIN REGULAR, HUMAN 100 UNIT/ML 3 ML VIAL SQ PRN ×3 (07:18→17:05)
[2020-03-15] MEDS: FAMOTIDINE (20 MG) 20 MG TABLET PO SCH (07:40)
[2020-03-15 07:55] LABS: BASOPHILS % (AUTO) 0.6 % (0.0-2.0); EOSINOPHILS % (AUTO) 0.2 % (0.0-6.0); HEMATOCRIT 36 % (39-51); HEMOGLOBIN 11.3 g/dL (13.5-17.5); LYMPHOCYTES % (AUTO) 14.5 % (20.0-44.0); MEAN CORPUSCULAR HGB CONC 32 g/dl (31.0-36.0); MEAN CORPUSCULAR VOLUME 75 fL (80-96); MONOCYTES # (AUTO) 0.2 /CMM (0.1-1.30); MONOCYTES % (AUTO) 3.2 % (2.0-12.0); NEUTROPHILS # (AUTO) 5.4 /CMM (1.8-8.9); NEUTROPHILS % (AUTO) 81.5 % (43.0-81.0); PLATELET COUNT (AUTO) 270 /CMM (150-450); RED BLOOD CELL COUNT(AUTO) 4.75 MIL/uL (4.5-6.0); WHITE BLOOD COUNT (AUTO) 6.7 K/uL (4.3-11.0)
[2020-03-15 08:00] VITALS: BP 88/41
[2020-03-15] MEDS: DOCUSATE SODIUM LIQ 100 MG/10 ML UDC PO SCH (08:02)
[2020-03-15] MEDS: CLOPIDOGREL BISULFATE 75 MG TABLET PO SCH (08:02)
[2020-03-15] MEDS: PSYLLIUM SEED 1 PKT PACKET PO SCH ×2 (08:03→16:38)
[2020-03-15] MEDS: CHOLECALCIFEROL 1,000 UNIT TABLET (VIT D3) PO SCH (08:03)
[2020-03-15] MEDS: QUETIAPINE FUMARATE 25 MG TABLET PO SCH ×3 (08:03→22:00)
[2020-03-15] MEDS: OXCARBAZEPINE 150 MG TABLET PO SCH ×2 (08:03→17:02)
[2020-03-15] MEDS: DIVALPROEX SODIUM 500 MG TABLET.DR PO SCH ×2 (08:03→17:02)
[2020-03-15] MEDS: LACTOBACILLUS RHAMNOSUS GG 1 EACH CAP.SPRINK PO SCH ×2 (08:03→17:02)
[2020-03-15] MEDS: clonazePAM 0.5 MG TABLET PO SCH ×3 (08:03→17:02)
[2020-03-15] MEDS: MULTIVITAMINS,THERAGRAN 1 UDTAB TABLET PO SCH (08:03)
[2020-03-15] MEDS: ENOXAPARIN SODIUM 40 MG/0.4 ML DISP.SYRIN SQ SCH (08:04)
[2020-03-15 08:12] LABS: CALCIUM, SERUM 8.7 mg/dL (8.5-10.1); POTASSIUM 3.3 mmol/L (3.5-5.1)
[2020-03-15 09:06] LABS: *SPE A/G RATIO 0.7 (0.7-1.7); *SPE ALBUMIN 2.4 g/dL (2.9-4.4); *SPE ALPHA-1-GLOBULIN 0.5 g/dL (0.0-0.4); *SPE ALPHA-2-GLOBULIN 0.9 g/dL (0.4-1.0); *SPE BETA GLOBULIN 0.8 g/dL (0.7-1.3); *SPE GLOBULIN, TOTAL 3.4 g/dL (2.2-3.9); *SPE M-SPIKE 0.8 g/dL (Not Observed); *SPEGAMMA GLOBULIN 1.2 g/dL (0.4-1.8)
[2020-03-15] MEDS: POTASSIUM CHLORIDE 20 MEQ TAB.PRT.SR PO SCH ×2 (09:54→10:47)
[2020-03-15] MEDS: POLYETHYLENE GLYCOL 3350 17 GM POWD.PACK PO SCH (10:46)
--- NOTE | 2020-03-15 10:50 | NUR ---
WOUND CARE CONSULT: PT PRESENTS WITH GENERALIZED RASH/SKIN CONDITION WITH MULTIPLE AREAS OF DISCOLORATION, SCABS AND SCRATCH BASS ON SKIN, PRESENT ON ADMISSION. RN TO DISCUSS WITH PMD. RECOMMENDATIONS MADE FOR SKIN PROTECTION AND DISCUSSED WITH NURSING STAFF. MD IN AGREEMENT WITH PLAN OF CARE.
[2020-03-15 16:00] VITALS: BP 93/56
--- NOTE | 2020-03-15 19:01 | NUR ---
MS/RN - End of shift summary Patient is alert to self, needs frequent reorientation, without distress on oxygen at 4lpm via NC. Montilla catheter in place for acute hypoxemia with movement. Fall and aspiration precautions maintained. Will continue with current medical management.
--- NOTE | 2020-03-15 19:45 | NUR ---
MS RN OPENING NOTES PT RECEIVED AT BEDSIDE. PT SLEEPING. CALM, COMFORTABLE. ALERT AND ORIENTED X1. PT ON 4L NASAL CANNULA. TOLERATING WELL. NO SOB. EVEN AND UNLABORED BREATHING NOTED. LEFT WRIST #22. INTACT, PATENT, FLUSHING WELL. NO OCCLUSIONS, NO INFILTRATION. DIOP CATH. 300 OUTPUT. CLEAR, YELLOW, NO SEDIMENTS NOTED. WILL CONTINUE TO MONITOR. WILL CONTINUE PLAN OF CARE.
--- NOTE | 2020-03-15 20:39 | NUR ---
MS RN NOTE PT BP TRENDING LOW AT 85/45. NOTIFIED DR. KENDALL. ORDERED 500 CC OF 1/2 NS ONCE.
[2020-03-15] MEDS ORDERED: IV 1/2NS 1000 ML 1,000 ML IV ONE (21:30)
--- NOTE | 2020-03-15 21:40 | NUR ---
MS RN NOTE PT BP CORRECTED. INFUSION OF 500 CC OF 1/2 NS STOPPED. BP BP 143/ 73.
[2020-03-15] MEDS: MIRTAZAPINE 15 MG TABLET PO SCH (22:00)
[2020-03-16] MEDS: BLOOD SUGAR DIAGNOSTIC 1 EACH STRIP IN SCH ×5 (00:11→22:11)
[2020-03-16] MEDS: HYDROCORTISONE SOD SUCCINATE 100 MG/2 ML VIAL IV SCH ×3 (04:43→22:12)
--- NOTE | 2020-03-16 07:15 | NUR ---
MS RN OPENING NOTES PATIENT IN BED. A/O X 0-1. AFEBRILE. NO S/SX OF RESPIRATORY DISTRESS. NC 4L OF O2. DIOP CATH. IV SITE L WRIST #22 G SL. PROVIDED SAFETY MEASURES. BED IN LOWEST POSITION, LOCKED. SIDE RAILS UP X 2. CALL LIGHT WITHIN REACH. WILL CONTINUE PLAN OF CARE.
[2020-03-16 07:30] LABS: BASOPHILS % (AUTO) 0.3 % (0.0-2.0); HEMATOCRIT 37 % (39-51); HEMOGLOBIN 11.8 g/dL (13.5-17.5); LYMPHOCYTES # (AUTO) 1.2 /CMM (0.8-4.8); LYMPHOCYTES % (AUTO) 20.1 % (20.0-44.0); MEAN CORPUSCULAR HGB CONC 32 g/dl (31.0-36.0); MEAN CORPUSCULAR VOLUME 75 fL (80-96); MONOCYTES # (AUTO) 0.3 /CMM (0.1-1.30); MONOCYTES % (AUTO) 4.4 % (2.0-12.0); NEUTROPHILS # (AUTO) 4.3 /CMM (1.8-8.9); NEUTROPHILS % (AUTO) 74.2 % (43.0-81.0); PLATELET COUNT (AUTO) 296 /CMM (150-450); RED BLOOD CELL COUNT(AUTO) 4.95 MIL/uL (4.5-6.0); WHITE BLOOD COUNT (AUTO) 5.9 K/uL (4.3-11.0)
--- NOTE | 2020-03-16 07:31 | NUR ---
MS RN CLOSING NOTES PT LAYING IN BED. ASLEEP. CALM, COOPERATIVE. ALERT AND ORIENTED X1. VERY CONFUSED. AT TIMES PULLS ON NASAL CANNULA. IN THE BEGINNING OF THE SHIFT PT BP TRENDING LOW, ALERTED DR. GÓMEZ. ADMINISTTED IV BOLUS 500 ML/ HR. PT BP STABILIZED TO 143/ 73. LEFT WRIST #22. INTACT, PATENT, FLUSHING WELL. NO OCCLUSIONS, NO INFILTRATIONS. DIOP CATHETER DRAINED 800. CLEAR, CHRISTINA- YELLOW. NO SEDIMENTS. WILL CONTINUE TO MONITOR. WILL CONTINUE PLAN OF CARE.
[2020-03-16 07:44] LABS: CALCIUM, SERUM 8.4 mg/dL (8.5-10.1); MAGNESIUM 2.4 mg/dL (1.8-2.4); PHOSPHORUS 2.9 mg/dL (2.5-4.9); POTASSIUM 3.3 mmol/L (3.5-5.1)
[2020-03-16] MEDS: FAMOTIDINE (20 MG) 20 MG TABLET PO SCH (07:57)
[2020-03-16 08:00] VITALS: BP 90/51
[2020-03-16] MEDS: PSYLLIUM SEED 1 PKT PACKET PO SCH ×2 (09:22→16:26)
[2020-03-16] MEDS: clonazePAM 0.5 MG TABLET PO SCH ×3 (09:22→16:26)
[2020-03-16] MEDS: DOCUSATE SODIUM LIQ 100 MG/10 ML UDC PO SCH (09:22)
[2020-03-16] MEDS: POTASSIUM CHLORIDE 20 MEQ TAB.PRT.SR PO SCH ×2 (09:23→10:14)
[2020-03-16] MEDS: OXCARBAZEPINE 150 MG TABLET PO SCH ×2 (09:23→16:26)
[2020-03-16] MEDS: LACTOBACILLUS RHAMNOSUS GG 1 EACH CAP.SPRINK PO SCH ×2 (09:23→16:26)
[2020-03-16] MEDS: DIVALPROEX SODIUM 500 MG TABLET.DR PO SCH ×2 (09:23→16:26)
[2020-03-16] MEDS: CHOLECALCIFEROL 1,000 UNIT TABLET (VIT D3) PO SCH (09:23)
[2020-03-16] MEDS: QUETIAPINE FUMARATE 25 MG TABLET PO SCH ×3 (09:23→22:00)
[2020-03-16] MEDS: CLOPIDOGREL BISULFATE 75 MG TABLET PO SCH (09:23)
[2020-03-16] MEDS: MULTIVITAMINS,THERAGRAN 1 UDTAB TABLET PO SCH (09:26)
[2020-03-16] MEDS: ENOXAPARIN SODIUM 40 MG/0.4 ML DISP.SYRIN SQ SCH (09:35)
--- NOTE | 2020-03-16 09:47 | NUR ---
PT CAN NOT HOLD STILL FOR HIGH RESOLUTION SCAN//SPOKE TO RN
--- NOTE | 2020-03-16 10:15 | NUR ---
MS RN NOTES HELD MIRALAX. PATIENT HAD EPISODES OF DIARRHEA.
[2020-03-16] MEDS: POLYETHYLENE GLYCOL 3350 17 GM POWD.PACK PO SCH (10:16)
[2020-03-16] MEDS ORDERED: IV NS 0.9% 1,000 ML IV PRN (11:00)
[2020-03-16 13:07] LABS: *SPE A/G RATIO 0.6 (0.7-1.7); *SPE ALBUMIN 2.2 g/dL (2.9-4.4); *SPE ALPHA-1-GLOBULIN 0.5 g/dL (0.0-0.4); *SPE GLOBULIN, TOTAL 3.8 g/dL (2.2-3.9); *SPE M-SPIKE 0.5 g/dL (Not Observed); *SPEGAMMA GLOBULIN 1.3 g/dL (0.4-1.8)
[2020-03-16] MEDS: LEVOFLOXACIN 750 MG /D5W 150ML 750 MG in PREMIX 1 EA IV SCH (13:49)
[2020-03-16 16:00] VITALS: BP 142/76
[2020-03-16] MEDS: INSULIN REGULAR, HUMAN 100 UNIT/ML 3 ML VIAL SQ PRN (17:28)
--- NOTE | 2020-03-16 19:40 | NUR ---
MS RN CLOSING NOTES PATIENT IN BED. A/O X0-1. IN NO APPARENT DISTRESS. IV SITE L WRIST #22 G SL. ROUTINE MEDS WERE GIVEN. SAFETY MEASURES MAINTAINED. BED IN LOWEST POSITION, LOCKED. SIDE RAILS UP X 2. CALL LIGHT WITHIN REACH. WILL ENDORSE TO CUSTOMER PRICING MANAGER FOR [facility].
--- NOTE | 2020-03-16 19:42 | NUR ---
MS RN NOTE: RECEIVED PATIENT IN BED ASLEEP, A/OX1, NO S/SX OF ACUTE RESPIRATORY DISTRESS NOTED. IV ACCESS ON LEFT WRIST #22G PATENT AND INTACT. ON O2 4LPM VIA NASAL CANNULA, TOLERATING WELL. ON DIOP CATHETER DRAINING WELL. REPOSITIONED FOR COMFORT. NO MANIFESTATIONS OF PAIN OR DISCOMFORT, NO FACIAL GRIMACING, NO MOANING NOTED. SAFETY PRECAUTIONS IN PLACE. CALL LIGHT WITHIN REACH. WILL CONTINUE TO MONITOR PATIENT'S SAFETY.
[2020-03-16 20:00] VITALS: BP_SYST 95; BP_DIAS 45; BP_DIAS 47
[2020-03-16] MEDS: MIRTAZAPINE 15 MG TABLET PO SCH (22:00)
--- NOTE | 2020-03-16 22:21 | NUR ---
MS RN NOTE REMERON & SEROQUEL DOSE SCHEDULED HELD FOR TONIGHT DUE TO DECREASED BP 95/47. PT IS INTERMITTENTLY SLEEPING. CALM & RELAXED AT THIS TIME. WILL CONTINUE TO MONITOR.
[2020-03-17] MEDS: HYDROCORTISONE SOD SUCCINATE 100 MG/2 ML VIAL IV SCH (05:15)
[2020-03-17] MEDS: INSULIN REGULAR, HUMAN 100 UNIT/ML 3 ML VIAL SQ PRN ×2 (06:45→12:25)
--- NOTE | 2020-03-17 07:00 | NUR ---
MS RN CLOSING NOTES: PATIENT IN BED ASLEEP, A/OX1, NO S/SX OF ACUTE RESPIRATORY DISTRESS NOTED. IV ACCESS ON LEFT WRIST #22G PATENT AND INTACT. ON O2 4LPM VIA NASAL CANNULA, TOLERATING WELL. ON DIOP CATHETER DRAINING WELL. REPOSITIONED FOR COMFORT. NO MANIFESTATIONS OF PAIN OR DISCOMFORT, NO FACIAL GRIMACING, NO MOANING NOTED. BED IN LOWEST POSITION. SIDE RAILS UP X2. SAFETY PRECAUTIONS IN PLACE. CALL LIGHT WITHIN REACH. WILL ENDORSE TO DAY SHIFT NURSE FOR CONTINUITY OF CARE .
[2020-03-17 08:00] VITALS: BP 92/68
[2020-03-17] MEDS: BLOOD SUGAR DIAGNOSTIC 1 EACH STRIP IN SCH ×4 (08:06→21:55)
[2020-03-17] MEDS: ENOXAPARIN SODIUM 40 MG/0.4 ML DISP.SYRIN SQ SCH (09:00)
[2020-03-17] MEDS: PSYLLIUM SEED 1 PKT PACKET PO SCH ×3 (09:00→17:00)
[2020-03-17] MEDS ORDERED: IV 1/2NS 1000 ML 1,000 ML IV PRN (09:30)
[2020-03-17] MEDS: clonazePAM 0.5 MG TABLET PO SCH ×3 (10:00→17:00)
[2020-03-17] MEDS: DOCUSATE SODIUM LIQ 100 MG/10 ML UDC PO SCH (10:00)
[2020-03-17] MEDS: FAMOTIDINE (20 MG) 20 MG TABLET PO SCH (10:00)
[2020-03-17] MEDS: CHOLECALCIFEROL 1,000 UNIT TABLET (VIT D3) PO SCH (10:00)
[2020-03-17] MEDS: CLOPIDOGREL BISULFATE 75 MG TABLET PO SCH (10:01)
[2020-03-17] MEDS: OXCARBAZEPINE 150 MG TABLET PO SCH ×2 (10:01→17:00)
[2020-03-17] MEDS: LACTOBACILLUS RHAMNOSUS GG 1 EACH CAP.SPRINK PO SCH ×2 (10:01→17:00)
[2020-03-17] MEDS: QUETIAPINE FUMARATE 25 MG TABLET PO SCH ×3 (10:01→22:00)
[2020-03-17] MEDS: DIVALPROEX SODIUM 500 MG TABLET.DR PO SCH ×2 (10:01→17:00)
[2020-03-17] MEDS: POTASSIUM CL. PREMIX PERIPHER. 50 ML IV SCH ×6 (10:02→16:59)
[2020-03-17] MEDS: MULTIVITAMINS,THERAGRAN 1 UDTAB TABLET PO SCH (10:02)
[2020-03-17 10:33] LABS: BASOPHILS % (AUTO) 0.2 % (0.0-2.0); EOSINOPHILS % (AUTO) 0.3 % (0.0-6.0); HEMATOCRIT 34 % (39-51); HEMOGLOBIN 11.1 g/dL (13.5-17.5); LYMPHOCYTES % (AUTO) 23.4 % (20.0-44.0); MEAN CORPUSCULAR HGB CONC 32 g/dl (31.0-36.0); MEAN CORPUSCULAR VOLUME 75 fL (80-96); MONOCYTES # (AUTO) 0.3 /CMM (0.1-1.30); MONOCYTES % (AUTO) 3.8 % (2.0-12.0); NEUTROPHILS % (AUTO) 72.3 % (43.0-81.0); PLATELET COUNT (AUTO) 277 /CMM (150-450); RED BLOOD CELL COUNT(AUTO) 4.58 MIL/uL (4.5-6.0); WHITE BLOOD COUNT (AUTO) 8.4 K/uL (4.3-11.0)
[2020-03-17] MEDS: POLYETHYLENE GLYCOL 3350 17 GM POWD.PACK PO SCH (11:00)
[2020-03-17 11:05] LABS: CALCIUM, SERUM 8.4 mg/dL (8.5-10.1); CREATININE 1.2 mg/dL (0.6-1.3); POTASSIUM 3.2 mmol/L (3.5-5.1)
[2020-03-17 16:00] VITALS: BP 97/49
--- NOTE | 2020-03-17 19:40 | NUR ---
RT NOTE NT SX PT GOT THICK WHITE MOD SECRETIONS. SOME BLEEDING NOTICED ON RIGHT NOSTRIL. RN AWARE.
[2020-03-17 20:00] VITALS: BP 95/40
--- NOTE | 2020-03-17 20:04 | NUR ---
NURSE OPENING NOTES PATIENT IN THE ROOM, BEING SUCTIONED BY RT AT THIS TIME. NOTED SECRETIONS TO BE BLOOD TINGED. WILL ADMINISTERED ORDERED MEDICATIONS. O2 INAHALTION AT 6LPM VIA NASAL CANNULA CONTINUED. WILL CHECK BLOOD GLUCOSE LEVELS ORDERED. WILL MONITOR PATIENT.
--- NOTE | 2020-03-17 20:32 | NUR ---
AM SHIFT SUMMARY PATIENT IN BED. A/O X 0-1. LETHARGIC. IV SITE L WRIST #22 G SL. NC ON ON 4L/MIN. ON DIOP CATH, DRAINING IN YELLOW URINE. ROUTINE MEDS WERE GIVEN ORDERED. PATIENT WAS DESATING AROUND 1730, SA02 FROM 75-80%. CALLED RT AND SUCTIONED THE PATIENT. GREENISH TO YELLOWISH DISCHARGE. WAS PUT ON SEMI FOWLERS POSITION AND HIGH FLOW O2 WITH NON REBREATHER MASK. PATIENT SA02 WENT TO 92-93%. PATIENT WAS PUT ON 6L/MIN. RT WILL DO SUCTION Q4. SAFETY MEASURES MAINTAINED. BED IN LOWEST POSITION, LOCKED. SIDE RAILS UP X 2. CALL LIGHT WITHIN REACH. WILL ENDORSE TO FINAL INSPECTOR TRUCK TRAILER FOR MARIELA.
[2020-03-17] MEDS: MIRTAZAPINE 15 MG TABLET PO SCH (22:00)
[2020-03-18] MEDS: IV 1/2NS 1000 ML 1,000 ML IV PRN ×2 (03:39→18:42)
--- NOTE | 2020-03-18 06:01 | NUR ---
CLOSING NOTES: PATIENT IN THE ROOM, RESTING COMFORTABLY, NO COMPLAINS OF PAIN, NO FACIAL GRIMACE NOTED. REPOSITIONED PATIENT Q2H. BLOOD GLUCOSE LEVELS CHECKED. REMERON AND SEROQUEL MEDICATION NON ADMINISTERED PATIENT HAS DECREASED BLOOD PRESSURE. SAFETY AND FALL PRECAUTIONS MAINTAINED. BED ALARM KEPT ON. WILL CONTINUE TO MONITOR PATIENT. WILL ENDORSE PATIENT TO DAY SHIFT NURSE.
[2020-03-18] MEDS: BLOOD SUGAR DIAGNOSTIC 1 EACH STRIP IN SCH ×4 (06:37→22:15)
--- NOTE | 2020-03-18 07:28 | NUR ---
MS/RN OPENING NOTE RECEIVED PATIENT FROM DRY PRESS OPERATOR HELPER NURSE PATIENT A/O X1, NON VERBAL. PATIENT IS ASLEEP IN BED, EASILY WOKEN UP. PATIENT ON OXYGEN 6L VIA NASAL CANNULA TOLERATING WELL, BREATHING EVEN, NON LABORED, NO SOB NOTED. NO ACUTE DISTRESS NOTED AT THIS TIME. CARMITA #22 INTACT AND PATENT. SAFETY MEASURE IN PLACE BED LOCKED AND IN LOWEST POSITION, CALL LIGHT WITHIN REACH WILL CONTINUE TO MONITOR AND ENSURE SAFETY.
[2020-03-18] MEDS: FAMOTIDINE (20 MG) 20 MG TABLET PO SCH (07:38)
[2020-03-18 07:56] LABS: BASOPHILS # (AUTO) 0.1 /CMM (0.0-0.2); BASOPHILS % (AUTO) 1.2 % (0.0-2.0); HEMATOCRIT 36 % (39-51); HEMOGLOBIN 11.2 g/dL (13.5-17.5); LYMPHOCYTES # (AUTO) 3.3 /CMM (0.8-4.8); LYMPHOCYTES % (AUTO) 41.2 % (20.0-44.0); MEAN CORPUSCULAR HGB CONC 31 g/dl (31.0-36.0); MEAN CORPUSCULAR VOLUME 77 fL (80-96); MONOCYTES # (AUTO) 0.4 /CMM (0.1-1.30); MONOCYTES % (AUTO) 5.3 % (2.0-12.0); NEUTROPHILS % (AUTO) 50.3 % (43.0-81.0); PLATELET COUNT (AUTO) 285 /CMM (150-450); RED BLOOD CELL COUNT(AUTO) 4.68 MIL/uL (4.5-6.0)
[2020-03-18 08:00] VITALS: BP 78/41
[2020-03-18 08:31] LABS: CREATININE 1.2 mg/dL (0.6-1.3); POTASSIUM 3.6 mmol/L (3.5-5.1)
[2020-03-18] MEDS: PSYLLIUM SEED 1 PKT PACKET PO SCH ×2 (09:00→16:25)
[2020-03-18] MEDS: DOCUSATE SODIUM LIQ 100 MG/10 ML UDC PO SCH (09:00)
[2020-03-18] MEDS: LEVOFLOXACIN (250MG) 250 MG TABLET PO SCH (09:00)
[2020-03-18] MEDS: LACTOBACILLUS RHAMNOSUS GG 1 EACH CAP.SPRINK PO SCH ×2 (09:00→16:25)
[2020-03-18] MEDS: DIVALPROEX SODIUM 500 MG TABLET.DR PO SCH ×2 (09:00→16:25)
[2020-03-18] MEDS: clonazePAM 0.5 MG TABLET PO SCH ×3 (09:00→16:25)
[2020-03-18] MEDS: CLOPIDOGREL BISULFATE 75 MG TABLET PO SCH (09:00)
[2020-03-18] MEDS: CHOLECALCIFEROL 1,000 UNIT TABLET (VIT D3) PO SCH (09:00)
[2020-03-18] MEDS: MULTIVITAMINS,THERAGRAN 1 UDTAB TABLET PO SCH (09:00)
[2020-03-18] MEDS: QUETIAPINE FUMARATE 25 MG TABLET PO SCH ×3 (09:00→22:00)
[2020-03-18] MEDS: OXCARBAZEPINE 150 MG TABLET PO SCH ×2 (09:00→16:25)
--- NOTE | 2020-03-18 10:07 | NUR ---
MS/RN NOTE PATIENT FAILED SWALLOW EVAL. ST RECOMMENDS TO KEEP PATIENT NPO WITH ORAL CARE. MESSAGED DR. SALDANA OF RESULTS AND RECOMMENDATION. ALSO INFORMED DR. SALDANA THAT PATIENT IS HYPOTENSIVE WITH BP 79/49, P 78, O2 SAT 96% ON 6L OF OXYGEN VIA NASAL CANNULA.
[2020-03-18] MEDS: ENOXAPARIN SODIUM 40 MG/0.4 ML DISP.SYRIN SQ SCH (10:17)
[2020-03-18] MEDS ORDERED: IV NS 0.9% 1,000 ML IV ONE (10:30)
[2020-03-18] MEDS: POLYETHYLENE GLYCOL 3350 17 GM POWD.PACK PO SCH (10:34)
--- NOTE | 2020-03-18 10:34 | NUR ---
MS/RN NOTES PO MEDICATIONS HELD DUE TO FAILED SWALLOW EVAL. MD AWARE.
--- NOTE | 2020-03-18 10:35 | NUR ---
MS/RN NOTE DR. SALDANA ORDERED 1L BOLUS. ORDERS RECEIVED AND CARRIED OUT. WILL CONTINUE TO MONITOR
[2020-03-18] MEDS: SOD FERRIC GLUC 125 MG in IV NS 0.9% 100 ML IV SCH (14:16)
[2020-03-18 16:00] VITALS: BP 85/49
--- NOTE | 2020-03-18 19:02 | NUR ---
MS/RN CLOSING NOTE PATIENT IS RESTING COMFORTABLY IN BED. PATIENT IS A/O X1 AWAKE/NON VERBAL. ON OXYGEN 6L VIA NASAL CANNULA, TOLERATING WELL. BREATHING EVEN, LABORED. NO SOB NOTED. CARMITA #24 INTACT AND PATENT. ALL NEEDS MET THROUGHOUT THE SHIFT. NO ACUTE DISTRESS NOTED. SAFETY MEASURES IN PLACE, WILL ENDORSE TO MAINTENANCE HELPER UTILITY ENGINEER NURSE.
[2020-03-18 20:00] VITALS: BP 119/50
--- NOTE | 2020-03-18 20:00 | NUR ---
VISUAL STYLIST OPENING NOTES PATIENT IN BED; A/O X1; NONVERBAL. ON 02 5LPM VIA NC; TOLERATING WELL WITH NO SOB. ON EXTERNAL TELE MONITORING READING SR AND HR AT 76. DIOP CATHETER PATENT AND INTACT; DRAINING CLEAR YELLOW URINE BY GRAVITY. MAINTAINED ON NPO DIET. IV #24 ON CARMITA; PATENT AND INTACT; INFUSING 1/2NS @ 100 ML/HR. NO S/S OF PAIN OR DISTRESS NOTED. SAFETY MEASURES IN PLACE; BED IS LOWEST LOCKED POSITION, SIDE RAILS UPX 3, CALL LIGHT WITHIN EASY REACH, BED ALARM ON. WILL CONTINUE TO MONITOR.
--- NOTE | 2020-03-18 20:26 | NUR ---
TUNNEL WORKER NOTES - NPO PATIENT NPO; UNABLE TO PASS SWALLOW EVALUATION. HELD ALL NPO MEDICATIONS. NOTIFIED DR. KENDALL AND STATED HE WILL REVIEW MEDICATIONS. ASPIRATION SAFETY MEASURES MAINTAINED.
[2020-03-18 21:04] VITALS: BP 119/50
[2020-03-18] MEDS: MIRTAZAPINE 15 MG TABLET PO SCH (22:00)
[2020-03-18] MEDS: INSULIN REGULAR, HUMAN 100 UNIT/ML 3 ML VIAL SQ PRN (22:16)
[2020-03-19] VITALS: BP_SYST 113; BP_SYST 118; BP_DIAS 48
[2020-03-19 04:00] VITALS: BP_SYST 111; BP_SYST 112; BP_DIAS 46
[2020-03-19] MEDS: IV 1/2NS 1000 ML 1,000 ML IV PRN (05:57)
--- NOTE | 2020-03-19 06:02 | NUR ---
BELT CHANGER NOTES - NGT ENOCH (ON-CALL) REVIEWED PATIENTS MEDICATIONS AND ORDERED FOR NGT FOR MEDICATIONS. INSERTED [place] SUMP 16FR AT 40CM TO R NARE. CHECKED PLACEMENT AND AUSCULTATED FOR BUBBLES IN ABDOMEN. BUBBLES HEARD. CHECKED PLACEMENT WITH JOSE RN AND ELENO RNs. PATIENT NO NEW RESPIRATORY DISTRESS NOTED. SUCTION PATIENT'S MOUTH NEEDED, AND PERFORMED ORAL CARE. CHEST X-RAY FOR NGT PLACEMENT ORDERED AND PENDING. WILL CONTINUE TO MONITOR.
[2020-03-19 06:40] LABS: BASOPHILS % (AUTO) 0.3 % (0.0-2.0); EOSINOPHILS % (AUTO) 6.9 % (0.0-6.0); HEMATOCRIT 38 % (39-51); HEMOGLOBIN 11.9 g/dL (13.5-17.5); LYMPHOCYTES # (AUTO) 3.6 /CMM (0.8-4.8); LYMPHOCYTES % (AUTO) 45.7 % (20.0-44.0); MEAN CORPUSCULAR HGB CONC 31 g/dl (31.0-36.0); MEAN CORPUSCULAR VOLUME 76 fL (80-96); MONOCYTES # (AUTO) 0.4 /CMM (0.1-1.30); MONOCYTES % (AUTO) 4.7 % (2.0-12.0); NEUTROPHILS # (AUTO) 3.3 /CMM (1.8-8.9); NEUTROPHILS % (AUTO) 42.4 % (43.0-81.0); PLATELET COUNT (AUTO) 299 /CMM (150-450); RED BLOOD CELL COUNT(AUTO) 5.01 MIL/uL (4.5-6.0); WHITE BLOOD COUNT (AUTO) 7.9 K/uL (4.3-11.0)
--- NOTE | 2020-03-19 06:51 | NUR ---
AFFILIATE MARKETING SPECIALIST CLOSING NOTES NOTES PATIENT IN BED; A/O X0; NONVERBAL. ON 02 5LPM VIA NC; TOLERATING WELL WITH NO SOB. ON EXTERNAL TELE MONITORING READING SR AND HR AT 76. DIOP CATHETER PATENT AND INTACT; DRAINING CLEAR YELLOW URINE BY GRAVITY. MAINTAINED ON NPO DIET. NGT ON R NARE; INTACT. IV #24 ON CARMITA; PATENT AND INTACT; INFUSING 1/2NS @ 100 ML/HR. SAFETY MEASURES IN PLACE; BED IS LOWEST LOCKED POSITION, SIDE RAILS UPX 3, CALL LIGHT WITHIN EASY REACH, BED ALARM ON. WILL ENDORSE MARIELA TO ONCOMING AM RN.
--- NOTE | 2020-03-19 07:15 | NUR ---
RN OPENING NOTES PATIENT IN BED. A/O X0. NON VERBAL, EYES OPEN. AFEBRILE. NO S/SX OF RESPIRATORY DISTRESS. RADIOLOGIST DOING CHEST XRAY WHEN I CAME IN. NGT TUBE NOT IN PLACED. PATIENT KEPT ON NPO UNTIL FURTHER NOTICE. DIOP CATH DRAINING IN YELLOW URINE. IV SITE CARMITA #24, INTACT, 1/2 NS RUNNING @100 ML/HR. SAFETY MEASURES MAINTAINED. BED IN LOWEST POSITION, LOCKED. SIDE RAILS UP X 2. CALL LIGHT WITHIN REACH. WILL CONTINUE PLAN OF CARE.
[2020-03-19] MEDS: BLOOD SUGAR DIAGNOSTIC 1 EACH STRIP IN SCH ×4 (07:17→23:14)
[2020-03-19] MEDS: INSULIN REGULAR, HUMAN 100 UNIT/ML 3 ML VIAL SQ PRN (07:18)
[2020-03-19 07:25] LABS: ALBUMIN 1.8 g/dL (3.4-5.0); BILIRUBIN,TOTAL 0.3 mg/dL (0.2-1.0); CALCIUM, SERUM 8.3 mg/dL (8.5-10.1); CREATININE 1.1 mg/dL (0.6-1.3); MAGNESIUM 2.2 mg/dL (1.8-2.4); PHOSPHORUS 2.8 mg/dL (2.5-4.9); TOTAL PROTEIN, SERUM 6.3 g/dL (6.4-8.2)
[2020-03-19] MEDS: FAMOTIDINE (20 MG) 20 MG TABLET PO SCH (07:30)
[2020-03-19 08:00] VITALS: BP 96/80
[2020-03-19] MEDS: DIVALPROEX SODIUM 500 MG TABLET.DR PO SCH ×2 (09:00→17:00)
[2020-03-19] MEDS: DOCUSATE SODIUM LIQ 100 MG/10 ML UDC PO SCH (09:00)
[2020-03-19] MEDS: CHOLECALCIFEROL 1,000 UNIT TABLET (VIT D3) PO SCH (09:00)
[2020-03-19] MEDS: LACTOBACILLUS RHAMNOSUS GG 1 EACH CAP.SPRINK PO SCH ×2 (09:00→17:00)
[2020-03-19] MEDS: MULTIVITAMINS,THERAGRAN 1 UDTAB TABLET PO SCH (09:00)
[2020-03-19] MEDS: PSYLLIUM SEED 1 PKT PACKET PO SCH ×2 (09:00→17:00)
[2020-03-19] MEDS: clonazePAM 0.5 MG TABLET PO SCH ×3 (09:00→17:00)
[2020-03-19] MEDS: ENOXAPARIN SODIUM 40 MG/0.4 ML DISP.SYRIN SQ SCH (09:00)
[2020-03-19] MEDS: CLOPIDOGREL BISULFATE 75 MG TABLET PO SCH (09:00)
[2020-03-19] MEDS: OXCARBAZEPINE 150 MG TABLET PO SCH ×2 (09:00→17:00)
[2020-03-19] MEDS: POLYETHYLENE GLYCOL 3350 17 GM POWD.PACK PO SCH (11:00)
--- NOTE | 2020-03-19 11:24 | NUR ---
RN NOTES REINSERTED NG TUBE. ORDERED FOR ANOTHER CHEST XRAY. PUT THE PT IN B WRIST SOFT RESTRAINT. WILL CONTINUE TO MONITOR.
[2020-03-19 12:00] VITALS: BP 94/51
--- NOTE | 2020-03-19 12:56 | NUR ---
RN NOTES ACCUCHECK DONE. BS OF 46. D50W IVP, D5NS IV @ 100 ML/HR. ADMINISTERED
[2020-03-19] MEDS: IV D5/ 0.9% NACL 1,000 ML IV PRN (13:12)
[2020-03-19] MEDS ORDERED: DEXTROSE 50%-WATER 50 ML DISP.SYRIN IVP ONE (13:15)
--- NOTE | 2020-03-19 13:39 | NUR ---
RN NOTES RECHECKED BS 139.
[2020-03-19 16:00] VITALS: BP 101/55
[2020-03-19] MEDS: POTASSIUM CL. PREMIX PERIPHER. 50 ML IV SCH ×4 (16:08→23:49)
[2020-03-19] MEDS: SOD FERRIC GLUC 125 MG in IV NS 0.9% 100 ML IV SCH (16:34)
[2020-03-19] MEDS ORDERED: POTASSIUM CL. PREMIX PERIPHER. 50 ML IV SCH (19:00)
--- NOTE | 2020-03-19 20:00 | NUR ---
MS RN OPENING NOTES RECEIVED PATIENT IN BED. A/O X0. NON VERBAL, NO S/S OF RESPIRATORY DISTRESS. PT ON NGT TUBE, ON BILATERAL WRIST SOFT RESTRAINT D/T PULLING OF NGT. DIOP CATH DRAINING IN YELLOW URINE. IV SITE CARMITA #24, INTACT, 1/2 NS RUNNING @100 ML/HR. SAFETY PRECAUTION MAINTAINED. BED IN LOWEST POSITION AND LOCKED. SIDE RAILS UP X 2. CALL LIGHT WITHIN REACH. WILL CONTINUE TO MONITOR THROUGHOUT SHIFT.
[2020-03-19 20:57] VITALS: BP 99/52
--- NOTE | 2020-03-19 21:26 | NUR ---
NGT ADVANCED TO 10CM INSIDE, CHECKED PATENCY BY BY INTRODUCING AIR AND AUSCULTATED OVER THE EPIGASTRIC AREA, HEARD A GURGLE SOUNDS WHEN AIR INTRODUCED, CONFIRMED BY THE CHARGE NURSE SHASHANK, PATENCY IS GOOD. DIPPED THE END OF THE NGT TUBE IN THE WATER NO BUBBLING.
--- NOTE | 2020-03-19 21:41 | NUR ---
RN CLOSING NOTES PATIENT IN BED. A/O X 0. NON VERBAL. DIOP CATH DRAINING IN YELLOW URINE. IV SITE NOT WORKING GOOD TIL AFTERNOON. BEEN TRYING TO PUT ONE BUT UNSUCCESSFUL, HARD STICK. PENELOPE ABLE TO MAKE AN IV LINE ON THE RIGHT AC #20G. POTASSIUM CHL 10 MEQ/50 ML JUST STARTED. 3 BAGS WERE ADMINISTERED. ENDORSED TO STRATEGY PLANNING CONSULTANT FOR CONTINUITY OF MEDICATION. HAFSA MIDLINE INSERTION BY DR ARIELLA JOHNSON. SAFETY MEASURES MAINTAINED. BED IN LOWEST POSITION, LOCKED. SIDE RAILS UP X 2. CALL LIGHT WITHIN REACH. ENDORSED TO NIGHT FOR MARIELA.
--- NOTE | 2020-03-19 22:57 | NUR ---
REPORTS GIVEN TO RN FAA FOR CONTINUITY OF CARE.
[2020-03-19] MEDS: MIRTAZAPINE 15 MG TABLET PO SCH (23:15)
[2020-03-19] MEDS: QUETIAPINE FUMARATE 25 MG TABLET PO SCH (23:16)
[2020-03-20] VITALS (7 sets, daily range): BP systolic 100–115; BP diastolic 54–68
[2020-03-20] MEDS: POTASSIUM CL. PREMIX PERIPHER. 50 ML IV SCH (01:02)
[2020-03-20 07:12] LABS: BASOPHILS % (AUTO) 0.2 % (0.0-2.0); EOSINOPHILS % (AUTO) 5.2 % (0.0-6.0); HEMATOCRIT 39 % (39-51); HEMOGLOBIN 12.1 g/dL (13.5-17.5); LYMPHOCYTES # (AUTO) 6.4 /CMM (0.8-4.8); LYMPHOCYTES % (AUTO) 62.9 % (20.0-44.0); MEAN CORPUSCULAR HGB CONC 31 g/dl (31.0-36.0); MEAN CORPUSCULAR VOLUME 78 fL (80-96); MONOCYTES # (AUTO) 0.6 /CMM (0.1-1.30); MONOCYTES % (AUTO) 5.5 % (2.0-12.0); NEUTROPHILS # (AUTO) 2.6 /CMM (1.8-8.9); NEUTROPHILS % (AUTO) 26.2 % (43.0-81.0); PLATELET COUNT (AUTO) 306 /CMM (150-450); RED BLOOD CELL COUNT(AUTO) 5.05 MIL/uL (4.5-6.0); WHITE BLOOD COUNT (AUTO) 10.1 K/uL (4.3-11.0)
[2020-03-20 07:38] LABS: CALCIUM, SERUM 8.1 mg/dL (8.5-10.1); CREATININE 0.9 mg/dL (0.6-1.3); MAGNESIUM 2.2 mg/dL (1.8-2.4); PHOSPHORUS 2.2 mg/dL (2.5-4.9); POTASSIUM 3.8 mmol/L (3.5-5.1)
[2020-03-20] MEDS: BLOOD SUGAR DIAGNOSTIC 1 EACH STRIP IN SCH ×4 (07:39→22:09)
--- NOTE | 2020-03-20 08:03 | NUR ---
SALES PERFORMANCE ANALYST OPENING NOTE PATIENT IS IN BED RESTING. PATIENT IS IN NO ACUTE DISTRESS. NO SOB NOTED. PATIENT IS ON 6L OXYGEN ON NC. PATIENT IS ON TELE MONITOR READING SR 90s. PATIENT HAS WRIST RESTRAINS. PATIENT IS ON NG-TUBE. SAFETY PRECAUTIONS ARE IN PLACE. BED IS LOCKED AND IN THE LOWEST POSITION. SIDE RAILS ARE ON, CALL LIGHT WITHIN REACH. WILL CONTINUE TO MONITOR THROUGH OUT THE SHIFT.
[2020-03-20] MEDS: DOCUSATE SODIUM LIQ 100 MG/10 ML UDC PO SCH (08:42)
[2020-03-20] MEDS: DIVALPROEX SODIUM 500 MG TABLET.DR PO SCH ×2 (08:42→17:16)
[2020-03-20] MEDS: CHOLECALCIFEROL 1,000 UNIT TABLET (VIT D3) PO SCH (08:42)
[2020-03-20] MEDS: CLOPIDOGREL BISULFATE 75 MG TABLET PO SCH (08:43)
[2020-03-20] MEDS: clonazePAM 0.5 MG TABLET PO SCH ×3 (08:43→17:16)
[2020-03-20] MEDS: PSYLLIUM SEED 1 PKT PACKET PO SCH ×2 (08:43→17:16)
[2020-03-20] MEDS: FAMOTIDINE (20 MG) 20 MG TABLET PO SCH (08:43)
[2020-03-20] MEDS: MULTIVITAMINS,THERAGRAN 1 UDTAB TABLET PO SCH (08:43)
[2020-03-20] MEDS: LACTOBACILLUS RHAMNOSUS GG 1 EACH CAP.SPRINK PO SCH ×2 (08:43→17:16)
[2020-03-20] MEDS: ENOXAPARIN SODIUM 40 MG/0.4 ML DISP.SYRIN SQ SCH (08:53)
[2020-03-20] MEDS: LEVOFLOXACIN (250MG) 250 MG TABLET PO SCH (09:15)
[2020-03-20] MEDS: OXCARBAZEPINE 150 MG TABLET PO SCH ×2 (09:15→17:17)
[2020-03-20] MEDS: IV D5/ 0.9% NACL 1,000 ML IV PRN (09:25)
[2020-03-20] MEDS: POLYETHYLENE GLYCOL 3350 17 GM POWD.PACK PO SCH (11:38)
[2020-03-20] MEDS: POTASSIUM PHOSPHATE MM 7.5 MMOL in IV NS 0.9% 100 ML IV SCH ×2 (11:47→14:41)
[2020-03-20] MEDS: HYDROCORTISONE SOD SUCCINATE 100 MG/2 ML VIAL IV SCH ×2 (14:08→21:53)
[2020-03-20] MEDS: SOD FERRIC GLUC 125 MG in IV NS 0.9% 100 ML IV SCH (14:40)
[2020-03-20] MEDS: INSULIN REGULAR, HUMAN 100 UNIT/ML 3 ML VIAL SQ PRN (17:59)
--- NOTE | 2020-03-20 19:24 | NUR ---
SOW FARM TECHNICIAN CLOSING NOTE PATIENT IS IN BED RESTING. PATIENT IS IN NO ACUTE DISTRESS. NO SOB NOTED. PATIENT IS ON 3L OXYGEN ON NC. PATIENT IS ON TELE MONITOR READING SR 90s. PATIENT IS ON NG-TUBE FOR MEDICATION ADMINISTRATION. SAFETY PRECAUTIONS ARE IN PLACE. BED OS LOCKED AND IN THE LOWEST POSITION. SIDE RAILS ARE ON, CALL LIGHT WITHIN REACH. ENDORSE PATIENT TO BRAND DEVELOPMENT MANAGER FOR MARIELA.
--- NOTE | 2020-03-20 19:30 | NUR ---
FIRER AUTOMATIC STOKER OPENING NOTE PATIENT IS IN BED RESTING. NON VERBAL. PATIENT IS IN NO ACUTE DISTRESS. NO SOB NOTED. PATIENT IS ON 3L OXYGEN ON NC, O2 SATURATION @96%. PATIENT IS ON TELE MONITOR READING SR 90s. PATIENT HAS WRIST RESTRAINTS. ASSESSED PER PROTOCOL. PATIENT IS ON NG-TUBE, PATENT AND INTACT. SAFETY PRECAUTIONS ARE IN PLACE. BED IS LOCKED AND IN THE LOWEST POSITION. SIDE RAILS ARE ON, CALL LIGHT WITHIN REACH. WILL CONTINUE TO MONITOR THROUGH OUT THE SHIFT.
[2020-03-20] MEDS: MIRTAZAPINE 15 MG TABLET PO SCH (22:01)
[2020-03-21] VITALS (7 sets, daily range): BP systolic 80–119; BP diastolic 43–69
[2020-03-21] MEDS: HYDROCORTISONE SOD SUCCINATE 100 MG/2 ML VIAL IV SCH ×3 (04:17→20:50)
[2020-03-21] MEDS: IV D5W 1,000 ML IV PRN ×4 (05:26→21:41)
[2020-03-21] MEDS: BLOOD SUGAR DIAGNOSTIC 1 EACH STRIP IN SCH ×4 (06:44→22:14)
[2020-03-21] MEDS: INSULIN REGULAR, HUMAN 100 UNIT/ML 3 ML VIAL SQ PRN ×2 (06:56→22:17)
--- NOTE | 2020-03-21 06:57 | NUR ---
JUDICIAL LAW CLERK NOTES: PATIENT BLOOD SUGAR WAS 197MG/DL. REGULAR INSULIN HELD DUE TO PT IS ON NPO. WILL ENDORSE TO AM SHIFT FOR CONTINUITY OF CARE.
--- NOTE | 2020-03-21 07:15 | NUR ---
LEAD OXIDE MILL TENDER CLOSING NOTE PATIENT IN BED RESTING. NON VERBAL. PATIENT IS IN NO ACUTE DISTRESS. NO SOB NOTED. PATIENT IS ON 3L OXYGEN ON NC, O2 SATURATION @96%. PATIENT IS ON TELE MONITOR READING SR 87. PATIENT HAS WRIST RESTRAINTS. ASSESSED PER PROTOCOL. PATIENT IS ON NG-TUBE, PATENT AND INTACT. SAFETY PRECAUTIONS ARE IN PLACE. BED IS LOCKED AND IN THE LOWEST POSITION. SIDE RAILS ARE ON, CALL LIGHT WITHIN REACH. WILL ENDORSE TO DAY SHIFT NURSE FOR CONTINUITY OF CARE.
--- NOTE | 2020-03-21 07:20 | NUR ---
GAS CHECK PAD MAKER OPENING NOTES PATIENT IN BED. A/O X0-1. NO SIGNS OF RESPIRATORY DISTRESS. NC 3L O2. TELE READING SR 65. NGT ON THE R NARE. BOTH WRIST ON SOFT RESTRAINT. L UA MIDLINE, INTACT, D5W RUNNING @ 100ML/HR. DIOP CATHETER DRAINING YELLOW URINE. SAFETY MEASURES MAINTAINED. BED IN LOWEST POSITION, LOCKED. SIDE RAILS UP X 3. CALL LIGHT WITHIN REACH. WILL CONTINUE PLAN OF CARE.
[2020-03-21 07:28] LABS: BASOPHILS % (AUTO) 0.2 % (0.0-2.0); EOSINOPHILS % (AUTO) 0.1 % (0.0-6.0); HEMATOCRIT 35 % (39-51); LYMPHOCYTES # (AUTO) 3.9 /CMM (0.8-4.8); LYMPHOCYTES % (AUTO) 47.6 % (20.0-44.0); MEAN CORPUSCULAR HGB CONC 32 g/dl (31.0-36.0); MEAN CORPUSCULAR VOLUME 75 fL (80-96); MONOCYTES # (AUTO) 0.3 /CMM (0.1-1.30); MONOCYTES % (AUTO) 3.1 % (2.0-12.0); PLATELET COUNT (AUTO) 314 /CMM (150-450); RED BLOOD CELL COUNT(AUTO) 4.67 MIL/uL (4.5-6.0); WHITE BLOOD COUNT (AUTO) 8.1 K/uL (4.3-11.0)
[2020-03-21 07:53] LABS: CALCIUM, SERUM 7.9 mg/dL (8.5-10.1); CREATININE 1.2 mg/dL (0.6-1.3); MAGNESIUM 2.2 mg/dL (1.8-2.4); PHOSPHORUS 3.6 mg/dL (2.5-4.9); POTASSIUM 3.2 mmol/L (3.5-5.1)
[2020-03-21 09:43] LABS: BAND % (MANUAL) 3 % (0.0-5.0); LYMPHOCYTES % (MANUAL) 40 % (16-48); MONOCYTES % (MANUAL) 9 % (0-11.0); NEUTROPHILS % (MANUAL) 48 (42-76)
[2020-03-21] MEDS: POLYETHYLENE GLYCOL 3350 17 GM POWD.PACK PO SCH (10:09)
[2020-03-21] MEDS: DOCUSATE SODIUM LIQ 100 MG/10 ML UDC PO SCH (10:09)
[2020-03-21] MEDS: CHOLECALCIFEROL 1,000 UNIT TABLET (VIT D3) PO SCH (10:10)
[2020-03-21] MEDS: FAMOTIDINE (20 MG) 20 MG TABLET PO SCH (10:10)
[2020-03-21] MEDS: clonazePAM 0.5 MG TABLET PO SCH ×3 (10:10→17:19)
[2020-03-21] MEDS: LACTOBACILLUS RHAMNOSUS GG 1 EACH CAP.SPRINK PO SCH ×2 (10:10→17:19)
[2020-03-21] MEDS: DIVALPROEX SODIUM 500 MG TABLET.DR PO SCH ×2 (10:10→17:19)
[2020-03-21] MEDS: CLOPIDOGREL BISULFATE 75 MG TABLET PO SCH (10:12)
[2020-03-21] MEDS: ENOXAPARIN SODIUM 40 MG/0.4 ML DISP.SYRIN SQ SCH (10:16)
[2020-03-21] MEDS: MULTIVITAMINS,THERAGRAN 1 UDTAB TABLET PO SCH (10:27)
[2020-03-21] MEDS: PSYLLIUM SEED 1 PKT PACKET PO SCH ×2 (10:27→17:19)
[2020-03-21] MEDS: OXCARBAZEPINE 150 MG TABLET PO SCH ×2 (10:27→17:26)
[2020-03-21] MEDS ORDERED: POTASSIUM CHLORIDE 20 MEQ POWDER PACKET NG SCH (10:30)
[2020-03-21] MEDS ORDERED: GLUCERNA 1.2 1,000 ML BOTTLE NG PRN (14:30)
[2020-03-21] MEDS: SOD FERRIC GLUC 125 MG in IV NS 0.9% 100 ML IV SCH (14:52)
--- NOTE | 2020-03-21 20:00 | NUR ---
PATIENT NOT REPONDING TO NAME BEING SPOKEN WILL REPOND TP TOUCH BY PULLING AWAY RECTAL TEMP 93.4 JYOTHI HUGGER PLACED ON PATIENT B/P 80/47 HR 54 NOTIFIED MD BAE ABOUT THE B/P AND THE TEMP ORDERS RECIEVED 2 MIDODRINE TABS GIVEN VIA NGT ASP PRECAUTIONS CALL PLACED TO THE FAMILY SPOKE TO THE SON [phone] INFORMED HIM OF HIS DAD'S VITAL SIGNS AND HOW I SAW HIS CONDITION, HIS SISTER MONTHER AND THE PT.'S BROTHER CAME TO SEE THE PATIENT AT THE BEDSIDE, QUIRINO KEVIN MADE TO MAKE HIM A DNR/DNI PAPER SIGNED BY THE , FULL EXPLAINATION GIVEN TO HER AND THE SON, SHE COMMENTED SHE UNDERSTANDS. MD KENDALL MADE AWARE AND HE PUT IN THE ORDER PAPER IN THE CHART
--- NOTE | 2020-03-21 20:24 | NUR ---
DIGITAL COURT REPORTER CLOSING NOTES PATIENT IN BED. A/O X0-1. IN NO APPARENT DISTRESS. NC 3L O2. NGT ON THE R NARE. BOTH WRIST ON SOFT RESTRAINT. L UA MIDLINE, INTACT, D5W RUNNING @ 100ML/HR. GLUCERNA STARTED @25 ML/HR BUT GOAL RATE IS 65 ML/HR. DIOP CATHETER DRAINING IN YELLOW URINE. ROUTINE MEDS WERE GIVEN ORDERED. SAFETY MEASURES MAINTAINED. BED IN LOWEST POSITION, LOCKED. SIDE RAILS UP X 3. CALL LIGHT WITHIN REACH. WILL ENDORSE TO LATHE SET UP OPERATOR FOR MARIELA.
[2020-03-21] MEDS ORDERED: MIDODRINE HCL (5MG) 5 MG TABLET PO SCH (21:30)
[2020-03-21] MEDS ORDERED: IV D5W 500 ML IV ONE (21:30)
[2020-03-21] MEDS: MIRTAZAPINE 15 MG TABLET PO SCH (21:52)
[2020-03-22] VITALS (9 sets, daily range): BP systolic 71–94; BP diastolic 40–56
[2020-03-22] MEDS: IV D5W 1,000 ML IV PRN (00:39)
[2020-03-22] MEDS: HYDROCORTISONE SOD SUCCINATE 100 MG/2 ML VIAL IV SCH ×3 (04:33→23:54)
--- NOTE | 2020-03-22 05:52 | NUR ---
AT THE BEGINNING OF THE CONCIERGE PATIENT NOT OPENING EYES WHEN TOUCH AND NAME SPOKEN NOTED FINGERS AND THE NAILBEDS PURPILISH AND HANDS COLD UNABLE TO GET A ORAL OR AXIALLRY TEMP RECTAL TEMP 93.4 JYOTHI FARZADGGER PLACED ON PATIENT MD CALLED AND MADE AWARE THAT THE TEMP 93.4 B/P 83/48 HR 56 SATS 100% ON 3 LITERS N/C AND THE PATIENT IS A FULL CODE AT THIS TIME SON CALLED AND SPOKE TO HIM ABOUT WHAT I SEE ABOUT HIS DADS CONDITION AND COULD HE SPEAK TO HIS MOTHER, FAMILY CAME IN DTR SON AND BROTHER, DECISION TO MAKE HIM A DNR/DNI PAPER SIGNED AND I INFORMED THE MD IRVING PLACED THIS AM RECTAL TEMP HE IS 95.6 BARE HUGGER STILL ON PATIENT BECOMING INCREASING MORE ALERT ATTEMPTING TP BITE ME WHEN I MAKE THE ATTEMPT TO FIX THE O2 TUBING IN HIS NOSE SATS ON 3LITERS 100% LAST NIGHT WHEN MD BAE WAS CALLED REGARDING HIS TEMP AND LOW B/P MD ORDERED MIDODRINE AND BOLUS OF D5W 500 ML GENERALIZED SKIN RASH OVER HIS BODY
[2020-03-22] MEDS: BLOOD SUGAR DIAGNOSTIC 1 EACH STRIP IN SCH ×5 (06:24→23:07)
[2020-03-22] MEDS: INSULIN REGULAR, HUMAN 100 UNIT/ML 3 ML VIAL SQ PRN ×3 (06:28→23:57)
[2020-03-22 07:13] LABS: BASOPHILS % (AUTO) 0.3 % (0.0-2.0); EOSINOPHILS % (AUTO) 0.1 % (0.0-6.0); HEMATOCRIT 32 % (39-51); HEMOGLOBIN 10.4 g/dL (13.5-17.5); LYMPHOCYTES # (AUTO) 2.6 /CMM (0.8-4.8); LYMPHOCYTES % (AUTO) 32.1 % (20.0-44.0); MEAN CORPUSCULAR HGB CONC 32 g/dl (31.0-36.0); MEAN CORPUSCULAR VOLUME 76 fL (80-96); MONOCYTES # (AUTO) 0.3 /CMM (0.1-1.30); MONOCYTES % (AUTO) 3.5 % (2.0-12.0); NEUTROPHILS # (AUTO) 5.2 /CMM (1.8-8.9); PLATELET COUNT (AUTO) 278 /CMM (150-450); RED BLOOD CELL COUNT(AUTO) 4.28 MIL/uL (4.5-6.0); WHITE BLOOD COUNT (AUTO) 8.1 K/uL (4.3-11.0)
--- NOTE | 2020-03-22 07:25 | NUR ---
FABRICATOR INDUSTRIAL FURNACE OPENING NOTES RECEIVED PATIENT IN BED WITH A BEAR HUGGER. A/O X0-1. NO S/S OF RESPIRATORY DISTRESS. NC 3L O2. NGT ON THE R NARE. BOTH WRIST ON SOFT RESTRAINT. HAFSA MIDLINE. GLUCERNA WAS @35 ML/HR BUT GOAL RATE IS 65 ML/HR. DIOP CATHETER DRAINING IN YELLOW URINE. SAFETY MEASURES MAINTAINED. BED IN LOWEST POSITION, LOCKED. SIDE RAILS UP X 3. CALL LIGHT WITHIN REACH. WILL KEEP ON MONITORING THE V/S AND WILL CONTINUE PLAN OF CARE.
[2020-03-22 07:44] LABS: CALCIUM, SERUM 7.5 mg/dL (8.5-10.1); CREATININE 0.9 mg/dL (0.6-1.3); MAGNESIUM 2.1 mg/dL (1.8-2.4); PHOSPHORUS 2.9 mg/dL (2.5-4.9); POTASSIUM 3.4 mmol/L (3.5-5.1)
[2020-03-22] MEDS: PSYLLIUM SEED 1 PKT PACKET PO SCH ×2 (08:08→16:14)
[2020-03-22] MEDS: DOCUSATE SODIUM LIQ 100 MG/10 ML UDC PO SCH (08:08)
[2020-03-22] MEDS: LEVOFLOXACIN (250MG) 250 MG TABLET PO SCH (08:09)
[2020-03-22] MEDS: LACTOBACILLUS RHAMNOSUS GG 1 EACH CAP.SPRINK PO SCH ×2 (08:09→16:14)
[2020-03-22] MEDS: FAMOTIDINE (20 MG) 20 MG TABLET PO SCH (08:09)
[2020-03-22] MEDS: CHOLECALCIFEROL 1,000 UNIT TABLET (VIT D3) PO SCH (08:09)
[2020-03-22] MEDS: clonazePAM 0.5 MG TABLET PO SCH ×3 (08:09→16:15)
[2020-03-22] MEDS: OXCARBAZEPINE 150 MG TABLET PO SCH ×2 (08:09→16:15)
[2020-03-22] MEDS: CLOPIDOGREL BISULFATE 75 MG TABLET PO SCH (08:19)
[2020-03-22] MEDS: DIVALPROEX SODIUM 500 MG TABLET.DR PO SCH ×2 (08:20→16:14)
[2020-03-22] MEDS: MULTIVITAMINS,THERAGRAN 1 UDTAB TABLET PO SCH (08:20)
[2020-03-22] MEDS: ENOXAPARIN SODIUM 40 MG/0.4 ML DISP.SYRIN SQ SCH (08:24)
[2020-03-22] MEDS ORDERED: POTASSIUM CHLORIDE 20 MEQ POWDER PACKET NG SCH (10:00)
[2020-03-22] MEDS: POLYETHYLENE GLYCOL 3350 17 GM POWD.PACK PO SCH (10:11)
[2020-03-22] MEDS ORDERED: IV NS 0.9% 1,000 ML IV PRN (11:00)
[2020-03-22] MEDS: SOD FERRIC GLUC 125 MG in IV NS 0.9% 100 ML IV SCH (14:16)
[2020-03-22] MEDS: IV D5/0.45 NACL 1,000 ML IV PRN (15:25)
--- NOTE | 2020-03-22 18:33 | NUR ---
MS RN CLOSING NOTES PATIENT IN BED. A/O X0-1. NO S/S OF RESPIRATORY DISTRESS. NC 3L O2. NGT ON THE R NARE. BOTH WRIST ON SOFT RESTRAINT. HAFSA MIDLINE, INTACT, D5 1/2 NS RUNNING @ 75 ML/HR. GLUCERNA WAS @45 ML/HR, GOAL RATE IS 65 ML/HR. DIOP CATHETER DRAINING IN YELLOW URINE. PROVIDED SAFETY MEASURES. BED IN LOWEST POSITION, LOCKED. SIDE RAILS UP X 3. CALL LIGHT WITHIN REACH. WILL ENDORSE TO NIGHT FOR MARIELA.
--- NOTE | 2020-03-22 19:01 | NUR ---
MS RN OPENING NOTES PATIENT IN BED; A/O X0; NONVERBAL. ON 02 3LPM VIA NC; TOLERATING WELL WITH NO SOB. DIOP CATHETER PATENT AND INTACT; DRAINING TEA COLORED URINE BY GRAVITY. ON NGT GLUCERNA 1.2 @ 45ML/HR; NGT PATENT AND INTACT. IV #20 ON RFA; PATENT AND INTACT. HAFSA MIDLINE INFUSING D5 1/2NS @ 75 ML/HR. NO S/S OF PAIN OR DISTRESS NOTED. SAFETY MEASURES IN PLACE; BED IS LOWEST LOCKED POSITION, SIDE RAILS UPX 3, CALL LIGHT WITHIN EASY REACH, BED ALARM ON. WILL CONTINUE TO MONITOR.
[2020-03-22] MEDS: MIRTAZAPINE 15 MG TABLET PO SCH (23:53)
[2020-03-23] MEDS: HYDROCORTISONE SOD SUCCINATE 100 MG/2 ML VIAL IV SCH ×2 (05:34→12:58)
[2020-03-23] MEDS: INSULIN REGULAR, HUMAN 100 UNIT/ML 3 ML VIAL SQ PRN ×3 (06:19→17:24)
[2020-03-23] MEDS: FAMOTIDINE (20 MG) 20 MG TABLET PO SCH (06:45)
[2020-03-23] MEDS: BLOOD SUGAR DIAGNOSTIC 1 EACH STRIP IN SCH ×4 (06:46→23:58)
[2020-03-23 08:00] VITALS: BP 93/48
[2020-03-23 08:04] LABS: BASOPHILS % (AUTO) 0.3 % (0.0-2.0); EOSINOPHILS % (AUTO) 0.3 % (0.0-6.0); HEMATOCRIT 36 % (39-51); HEMOGLOBIN 11.4 g/dL (13.5-17.5); LYMPHOCYTES # (AUTO) 2.7 /CMM (0.8-4.8); LYMPHOCYTES % (AUTO) 31.5 % (20.0-44.0); MEAN CORPUSCULAR HGB CONC 31 g/dl (31.0-36.0); MEAN CORPUSCULAR VOLUME 76 fL (80-96); MONOCYTES # (AUTO) 0.3 /CMM (0.1-1.30); MONOCYTES % (AUTO) 3.9 % (2.0-12.0); NEUTROPHILS # (AUTO) 5.5 /CMM (1.8-8.9); PLATELET COUNT (AUTO) 267 /CMM (150-450); RED BLOOD CELL COUNT(AUTO) 4.77 MIL/uL (4.5-6.0); WHITE BLOOD COUNT (AUTO) 8.6 K/uL (4.3-11.0)
--- NOTE | 2020-03-23 08:10 | NUR ---
MS RN OPENING NOTES RECEIVED PATIENT AWAKE IN BED IN NO ACUTE SIGNS OF DISTRESS. HOB ELEVATED. A/O X0-1. RESPONSIVE TO TACTILE STIMULI. NO S/S OF PAIN NOTED AT THIS TIME. ON 02 VIA N/C AT 3LPM, TOLERATING WELL WITH NO SOB NOTED. NGT ON R NARE IN PLACE WITH FEEDING OF GLUCERNA 1.2 @ 65ML/HR IN PROGRESS, TOLERATING WELL. ASPIRATIONS PRECAUTIONS MAINTAIN. B/L SOFT WRIST RESTRAINTS IN PLACE, GOOD PERIPHERAL PULSES NOTED. DIOP CATHETER IN PLACE AND DRAINING IN SLIGHTLY DARK YELLOW URINE VIA GRAVITY. SAFETY MEASURES MAINTAINED BED IN LOWEST POSITION, LOCKED,SIDE RAILS UP X 2 AND CALL LIGHT WITHIN REACH. WILL CONTINUE TO MONITOR PT ACCORDINGLY.
[2020-03-23] MEDS: DOCUSATE SODIUM LIQ 100 MG/10 ML UDC PO SCH (08:59)
[2020-03-23] MEDS: ENOXAPARIN SODIUM 40 MG/0.4 ML DISP.SYRIN SQ SCH (08:59)
[2020-03-23] MEDS: MULTIVITAMINS,THERAGRAN 1 UDTAB TABLET PO SCH (08:59)
[2020-03-23] MEDS: LACTOBACILLUS RHAMNOSUS GG 1 EACH CAP.SPRINK PO SCH ×2 (09:00→16:27)
[2020-03-23] MEDS: DIVALPROEX SODIUM 500 MG TABLET.DR PO SCH ×2 (09:00→16:27)
[2020-03-23] MEDS: OXCARBAZEPINE 150 MG TABLET PO SCH ×2 (09:00→16:27)
[2020-03-23] MEDS: PSYLLIUM SEED 1 PKT PACKET PO SCH ×2 (09:00→16:27)
[2020-03-23] MEDS: clonazePAM 0.5 MG TABLET PO SCH ×2 (09:00→12:52)
[2020-03-23] MEDS: CHOLECALCIFEROL 1,000 UNIT TABLET (VIT D3) PO SCH (09:00)
[2020-03-23] MEDS: CLOPIDOGREL BISULFATE 75 MG TABLET PO SCH (09:00)
--- NOTE | 2020-03-23 09:02 | NUR ---
MS RN CLOSING NOTES PATIENT IN BED; A/O X0; NONVERBAL. ON 02 3LPM VIA NC; TOLERATING WELL WITH NO SOB. DIOP CATHETER PATENT AND INTACT; DRAINING TEA COLORED URINE BY GRAVITY. ON NGT GLUCERNA 1.2 @ 65ML/HR; NGT PATENT AND INTACT; REACHED GOAL WITH NO RESIDUAL; TOLERATED FEEDINGS WELL. IV #20 ON RFA; PATENT AND INTACT. HAFSA MIDLINE INFUSING D5 1/2NS @ 75 ML/HR. NO S/S OF PAIN OR DISTRESS NOTED. SAFETY MEASURES IN PLACE; BED IS LOWEST LOCKED POSITION, SIDE RAILS UPX 3, CALL LIGHT WITHIN EASY REACH, BED ALARM ON. ENDORSED MARIELA TO ONCOMING NURSE
[2020-03-23] MEDS: POLYETHYLENE GLYCOL 3350 17 GM POWD.PACK PO SCH (11:12)
[2020-03-23 11:15] LABS: CALCIUM, SERUM 7.9 mg/dL (8.5-10.1); MAGNESIUM 2.4 mg/dL (1.8-2.4); PHOSPHORUS 2.6 mg/dL (2.5-4.9); POTASSIUM 3.8 mmol/L (3.5-5.1)
[2020-03-23 12:18] LABS: ABG BASE EXCESS 4.9 mmol/L; ABG OXYGEN SATURATION 94.7 % (92.0-98.5); ABG PCO2 36.1 mmHg (35.0-45.0); ABG PH 7.508 (7.350-7.450); ABG PO2 69.7 mmHg (75.0-100.0); AaDO2 116.2 mmHg; COHb 0.6 % (0.5-1.5); MetHb 0.1 % (0.0-1.5); SITE, ABG Right Radial; VENT MODE, BG NASAL CANNULA
--- NOTE | 2020-03-23 13:27 | NUR ---
RN NOTES PT SEEN BY KARI DUKE AND STATED THAT PT IS LESS ALERT THAN BASELINE. PT RESPONSIVE TO PAIN STIMULI. V/S TAKEN: BS 200MG/DL, BP 93/54, P 74, R 20, T 97.6 AND SP02 975 ON 02 VIA N/C AT 2LPM. STAT ABG'S AND CT OF HEAD ORDERED AND DONE, RESULTS GIVEN TO KARI DUKE. WILL CONTINUE TO MONITOR.
[2020-03-23] MEDS ORDERED: IV NS 0.9% 500 ML IV ONE (15:30)
--- NOTE | 2020-03-23 15:41 | NUR ---
RN NOTES PT NOTED WITH LOW BP 89/45, DNP SRIKANTH ON UNIT AND MADE AWARE WITH ORDER TO GIVE MIDODRINE 10MG VIA NGT X1 DOSE AND NS 500ML NS BULOS. WILL CARRY OUT ORDER AND CONTINUE TO MONITOR PT'S STATUS.
[2020-03-23 16:00] VITALS: BP 89/45
[2020-03-23] MEDS ORDERED: MIDODRINE HCL (5MG) 5 MG TABLET PO ONE (16:00)
--- NOTE | 2020-03-23 18:47 | NUR ---
MS RN CLOSING NOTES PATIENT IN BED LYING AT MODERATE HIGH BACKREST POSITION. A/O X0. PT REMAINS LETHARGIC BUT RESPONDS TO DEEP TACTILE AND PAIN STIMULI. ON 02 VIA NON-REBREATHER MASK AT 10LPM PER MD ORDER, TOLERATING WELL WITH NO SOB NOTED. NGT ON R NARE IN PLACE, FEEDING OF GLUCERNA 1.2 @ 65ML/HR IN PROGRESS, TOLERATING WELL. ASPIRATIONS PRECAUTIONS MAINTAIN. B/L SOFT WRIST RESTRAINTS OFF AT THIS TIME. HAFSA MIDLINE IN PLACE WITH IVF RUNNING ORDERED. DIOP CATHETER IN PLACE DRAINING YELLOW URINE VIA GRAVITY, DIOP CARE DONE. ALL NEEDS AND CARE PROVIDED WELL. SAFETY MEASURES IN PLACE: BED IN LOWEST POSITION, LOCKED,SIDE RAILS UP X 2 AND CALL LIGHT WITHIN REACH. WILL ENDORSE TO FINAL ASSEMBLY INSPECTOR NURSE FOR MARIELA.
--- NOTE | 2020-03-23 19:30 | NUR ---
MS/RN OPENING NOTES RECEIVED PATIENT IN BED LYING AT MODERATE HIGH POSITION. PT A/O X0. PT LETHARGIC BUT RESPONDS TO DEEP TACTILE AND PAIN STIMULI NOTED. ON 02 VIA NON-REBREATHER MASK AT 10LPM PER MD ORDER, TOLERATING WELL WITH NO SOB NOTED. NGT ON R NARE IN PLACE, FEEDING OF GLUCERNA 1.2 @ 65ML/HR IN PROGRESS, TOLERATING WELL WILL BE NPO S/P MIDNIGHT. B/L SOFT WRIST RESTRAINTS OFF AT THIS TIME. HAFSA MIDLINE IN PLACE WITH IVF RUNNING ORDERED. DIOP CATHETER IN PLACE. SAFETY MEASURES ARE IN PLACE, BED LOCK AND IN LOW POSITION, CALL LIGHT WITHIN REACH, SIDE RAILS UP X 3. WILL CONTINUE TO MONITOR THROUGH OUT SHIFT.
[2020-03-23 20:00] VITALS: BP 100/55
[2020-03-23] MEDS: MIRTAZAPINE 15 MG TABLET PO SCH (23:58)
[2020-03-24] VITALS (53 sets, daily range): BP systolic 78–166; BP diastolic 27–62
[2020-03-24] MEDS: IV D5/0.45 NACL 1,000 ML IV PRN ×3 (00:18→21:33)
--- NOTE | 2020-03-24 06:35 | NUR ---
TELE/RN CLOSING NOTES PATIENT IN BED RESTING. PATIENT IS ALERT AND ORIENTED X 0, GRUNTS. PATIENT HAS IV ACCESS ON LEFT UA MIDLINE INTACT AND FLUSHING WELL. PATIENT RIGHT NARES NG TUBE IN PLACE, NPO SINCE MIDNIGHT. ALL NEED HAVE BEEN MET DURING SHIFT. SAFETY MEASURES ARE IN PLACE, BED IS LOCKED AND PLACED IN THE LOW POSITION, SIDE RAILS UP X 3, CALL LIGHT IS WITHIN REACH. WILL ENDORSE CARE TO DAY SHIFT NURSE.
[2020-03-24] MEDS: FAMOTIDINE (20 MG) 20 MG TABLET PO SCH (07:30)
--- NOTE | 2020-03-24 07:38 | NUR ---
MS RN OPENING NOTES PATIENT RECEIVED IN BED ON NON-REBREATHER MASK AT 10LPM, SP02 NOTED AT 99-100%. HOB ELEVATED. A/O X0. NON-VERBAL, RESPONSIVE TO DEEP TACTILE AND PAIN STIMULI. NGT ON R NARE IN PLACE, FEEDING OFF AT THIS TIME. PT FOR POSSIBLE PEF TUBE PLACEMENT TODAY. ASPIRATIONS PRECAUTIONS MAINTAIN. DIOP CATHETER IN PLACE, DRAINING IN SLIGHTLY DARK YELLOW URINE VIA GRAVITY. SAFETY MEASURES IN PLACE: BED IN LOWEST POSITION AND LOCKED, SIDE RAILS UP X 2 AND CALL LIGHT WITHIN REACH. WILL CONTINUE TO CLOSELY MONITOR PT
[2020-03-24] MEDS: BLOOD SUGAR DIAGNOSTIC 1 EACH STRIP IN SCH ×4 (07:42→21:09)
[2020-03-24 08:06] LABS: BASOPHILS % (AUTO) 0.2 % (0.0-2.0); EOSINOPHILS % (AUTO) 0.1 % (0.0-6.0); HEMATOCRIT 36 % (39-51); HEMOGLOBIN 11.3 g/dL (13.5-17.5); LYMPHOCYTES # (AUTO) 3.1 /CMM (0.8-4.8); LYMPHOCYTES % (AUTO) 15.7 % (20.0-44.0); MEAN CORPUSCULAR HGB CONC 32 g/dl (31.0-36.0); MEAN CORPUSCULAR VOLUME 74 fL (80-96); MONOCYTES # (AUTO) 0.7 /CMM (0.1-1.30); MONOCYTES % (AUTO) 3.4 % (2.0-12.0); NEUTROPHILS % (AUTO) 80.6 % (43.0-81.0); PLATELET COUNT (AUTO) 278 /CMM (150-450); RED BLOOD CELL COUNT(AUTO) 4.83 MIL/uL (4.5-6.0); WHITE BLOOD COUNT (AUTO) 19.8 K/uL (4.3-11.0)
[2020-03-24 08:44] LABS: CALCIUM, SERUM 7.7 mg/dL (8.5-10.1); CARBON DIOXIDE 27 mmol/L (21-32); CHLORIDE 108 mmol/L (98-107); CREATININE 1.6 mg/dL (0.6-1.3); GLUCOSE 166 mg/dL (74-106); MAGNESIUM 1.9 mg/dL (1.8-2.4); PHOSPHORUS 2.2 mg/dL (2.5-4.9); POTASSIUM 3.6 mmol/L (3.5-5.1); SODIUM SERUM 143 mmol/L (136-145); UREA NITROGEN, BLOOD 22 mg/dL (7-18)
[2020-03-24] MEDS: LEVOFLOXACIN (250MG) 250 MG TABLET PO SCH (09:00)
[2020-03-24] MEDS: MULTIVITAMINS,THERAGRAN 1 UDTAB TABLET PO SCH (09:00)
[2020-03-24] MEDS: DOCUSATE SODIUM LIQ 100 MG/10 ML UDC PO SCH (09:00)
[2020-03-24] MEDS: LACTOBACILLUS RHAMNOSUS GG 1 EACH CAP.SPRINK PO SCH ×2 (09:00→17:26)
[2020-03-24] MEDS: OXCARBAZEPINE 150 MG TABLET PO SCH ×2 (09:00→17:26)
[2020-03-24] MEDS: DIVALPROEX SODIUM 500 MG TABLET.DR PO SCH (09:00)
[2020-03-24] MEDS: CHOLECALCIFEROL 1,000 UNIT TABLET (VIT D3) PO SCH (09:00)
[2020-03-24] MEDS: CLOPIDOGREL BISULFATE 75 MG TABLET PO SCH (09:00)
[2020-03-24] MEDS: PSYLLIUM SEED 1 PKT PACKET PO SCH ×2 (09:00→17:26)
[2020-03-24] MEDS: HYDROCORTISONE SOD SUCCINATE 100 MG/2 ML VIAL IV SCH ×3 (09:24→20:53)
--- NOTE | 2020-03-24 09:29 | NUR ---
RN NOTES ALL AM MEDS VIA NG-TUBE NOT ADMINISTRED AT THIS TIME. PT FOR POSSIBLE G-TUBE PLACEMENT.
[2020-03-24 09:37] LABS: BAND % (MANUAL) 10 % (0.0-5.0); EOSINOPHILS % (MANUAL) 1 % (0-4); LYMPHOCYTES % (MANUAL) 11 % (16-48); MONOCYTES % (MANUAL) 3 % (0-11.0); NEUTROPHILS % (MANUAL) 75 (42-76)
--- NOTE | 2020-03-24 09:55 | NUR ---
RN NOTES PT SEEN AND EVALUATED BY DR MEDLEY, INFORMED HIM OF LATEST BP OF 72/33 mmhg WITH ORDER TO ADMINISTER NS 500ML BOLUS X1 ONLY. WILL CARRY OUT ORDER.
[2020-03-24] MEDS ORDERED: IV NS 0.9% 1,000 ML IV ONE (10:00)
[2020-03-24] MEDS ORDERED: POTASSIUM PHOSPHATE MM 15 MMOL in IV NS 0.9% 250 ML IV SCH (10:00)
[2020-03-24] MEDS ORDERED: IV NS 0.9% 500 ML IV ONE (10:00)
[2020-03-24] MEDS: ENOXAPARIN SODIUM 40 MG/0.4 ML DISP.SYRIN SQ SCH (10:13)
--- NOTE | 2020-03-24 10:35 | NUR ---
RN NOTES URINE SPECIMEN COLLECTED VIA DIOP CATHETER. CALLED LAB TO PICK-UP SPECIMEN.
--- NOTE | 2020-03-24 10:41 | NUR ---
RN NOTES CALLED ICU AND REPORT GIVEN TO NICK CAREY PT WILL GO TO ROOM 255.
--- NOTE | 2020-03-24 10:50 | NUR ---
RN NOTES PATIENT TRANSFEREE FROM 3W GET REPORT FROM NICK DEUTSCH. PATIENT CONFUSED MALE 79Y/OLD ON Dx OF RESPIRATORY DISTRESS, ON NON-REBREATHER MASK 15L. PATIENT USING ACCESSORY MUSCLES TO BREATH. NGT INTACT, PLACEMENT AND RESIDUAL CHECKED. PATIENT NPO. KEEP HOB ELEVATED FOR ASPIRATION PRECAUTION, DIOP CATHETER LEAKING. PATIENT HAS GENERALIZED RASHES. BILATERAL LOWER EXTREMITAS EDEMA, AND RIGHT UPPER ARM. IV MIDLINE ON LEFT UPPER ARM, AND RIGHT AC AREA. CALL LIGHT WITHIN TO REACH. WILL MONITORING. PATIENT HAS BILATERAL WRIST SOFT RESTRAIN CHECKED CIRCULATION PER PROTOCOL.
[2020-03-24] MEDS ORDERED: VANCOMYCIN 1.25 GM in IV D5W 250 ML IV ONE (11:00)
--- NOTE | 2020-03-24 11:04 | NUR ---
RN NOTES PT TRANSFERRED TO ICU ROOM 255
[2020-03-24] MEDS: POTASSIUM PHOSPHATE MM 7.5 MMOL in IV NS 0.9% 100 ML IV SCH ×2 (11:22→14:30)
[2020-03-24] MEDS: FLUDROCORTISONE 0.1 MG TABLET PO SCH ×2 (12:20→17:26)
[2020-03-24] MEDS: POLYETHYLENE GLYCOL 3350 17 GM POWD.PACK PO SCH (12:20)
[2020-03-24] MEDS: MEROPENEM 1 G in IV NS 0.9% 100 ML IV SCH (12:20)
[2020-03-24] MEDS: NOREPINEPHRINE 32 MG in IV NS 0.9% 218 ML IV PRN (12:51)
[2020-03-24] MEDS: INSULIN REGULAR, HUMAN 100 UNIT/ML 3 ML VIAL SQ PRN ×3 (13:45→21:13)
[2020-03-24 15:47] LABS: CREATININE, URINE 37.9 MG/DL (30.0-125.0); URINE TOTAL PROTEIN 73.9 mg/dL (0-11.9)
[2020-03-24 15:52] LABS: BILIRUBIN,DIRECT 0.1 mg/dL (0.0-0.2); BILIRUBIN,TOTAL 0.3 mg/dL (0.2-1.0)
[2020-03-24 16:14] LABS: BILIRUBIN,URINE NEGATIVE (NEGATIVE); COLOR,URINE YELLOW (YELLOW); LEUKOCYTE ESTERASE ,URINE MODERATE (NEGATIVE); NITRITE, URINE NEGATIVE (NEGATIVE); PH,URINE 6.5 (5.0-8.0); PROTEIN,URINE 30 mg/dl (NEGATIVE); UGLUCOSE NEGATIVE (NEGATIVE); UROBILINOGEN,URINE 0.2 EU/dL (0.2)
[2020-03-24 16:26] LABS: BACTERIA,URINE 4+ /HPF (None Seen); RBC,URINE 51-80 /HPF (0-2); SQUAMOUS EPITHELIAL CELL,UR 0-2 /HPF (None Seen); WBC,URINE TOO NUMEROUS TO COUN /HPF (0-3)
[2020-03-24 17:04] LABS: EOSINOPHIL,URINE Few
[2020-03-24] MEDS: DIVALPROEX SODIUM 125 MG CAP.SPRINK GT SCH (18:12)
--- NOTE | 2020-03-24 18:55 | NUR ---
PT ORALLY INTUBATED WITH 7.5 ETT SECURED @ [address] HERNANDEZ[address] CUFF INFLATED. CO2 DETECTOR COLOR CHANGED. BILATERAL BREATH SOUNDS NOTED. PLACED ON MECHANICAL VENTILATOR WITH THE SETTINGS OF AC 18,500,100% PEEP OF 5. VENTS PLUGGED INTO RED OUTLET. VENT ALARMS ON AND AUDIBLE. AMBU BAG AT BEDSIDE. SUCTIONED WITH MODERATE AMOUNT OF THICK PINK TINGED SECRETIONS. WILL MONITOR PT T/O THE SHIFT.
--- NOTE | 2020-03-24 18:56 | NUR ---
RN NOTES DURING INTUBATION MEDICATION WAS USED TO ORDER ROCURONIUM 60 MG, AND ETOMIDATE 20 MG PER ER MD ORDER.
--- NOTE | 2020-03-24 18:56 | NUR ---
RN NOTES PATIENT INTUBATED AT THIS TIME BY ER MD . EET 7.5/23 LIP SIZE, AC-18, TV-500, FIO2-100, AND PEEP 5. PATIENT TOLERATED EET WELL, CHEST X-RAY DONE. GET ORDER DIPRIVAN . INSERTED NEW DIOP CATHETER ON SIZE 18, DRAINING WELL. V/S STABLE. INFUSING LEVOPHED 0.1, AND D51/2 NS AT 100 ML/HR INTACT ON LEFT UA MIDLINE.
[2020-03-24] MEDS: PROPOFOL 100 ML IV PRN ×2 (19:05→19:26)
--- NOTE | 2020-03-24 19:05 | NUR ---
RN NOTES PATIENT STABLE, STARTED DIPRIVAN 5 MCG/KG/HR ON LEFT MIDLINE AND TITRATED PER PROTOCOL. ENDORSED ONCOMING NURSE FOLLOW PLAN OF CARE.
--- NOTE | 2020-03-24 20:00 | NUR ---
Received patient non verbal.Sedated and intubated on full vent support.Diprivan gtt infusing at 5 mcg and will titrate to sedation accordingly.Levophed gtt infusing for BP support.SR.VSS. R NGT clamped and placement verified.Kept npo.Maintenance IVF infusing well.FC to gravity. No acute distress noted.Turned and repositioned.Continue monitoring.
--- NOTE | 2020-03-24 20:28 | NUR ---
POST ABG DONE
[2020-03-24 21:00] LABS: ABG BASE EXCESS -0.9 mmol/L; ABG OXYGEN SATURATION 95.9 % (92.0-98.5); ABG PCO2 38.4 mmHg (35.0-45.0); ABG PH 7.406 (7.350-7.450); ABG PO2 79.3 mmHg (75.0-100.0); AaDO2 595.3 mmHg; COHb 0.1 % (0.5-1.5); MetHb 0.4 % (0.0-1.5); O2Hb 95.4 % (94.0-97.0); PEEP,BG 5 cm H2O; SITE, ABG Left Radial; VT, ABG 500 mL
[2020-03-24] MEDS: MIRTAZAPINE 15 MG TABLET PO SCH (21:09)
[2020-03-25] VITALS (44 sets, daily range): BP systolic 64–185; BP diastolic 26–103
--- NOTE | 2020-03-25 | NUR ---
Patient resting vs remains stable.Turned and repositioned.
[2020-03-25] MEDS: FLUDROCORTISONE 0.1 MG TABLET PO SCH ×5 (00:05→23:46)
[2020-03-25 04:36] LABS: BASOPHILS % (AUTO) 0.1 % (0.0-2.0); HEMATOCRIT 31 % (39-51); HEMOGLOBIN 9.8 g/dL (13.5-17.5); LYMPHOCYTES # (AUTO) 2.7 /CMM (0.8-4.8); LYMPHOCYTES % (AUTO) 11.8 % (20.0-44.0); MEAN CORPUSCULAR HGB CONC 32 g/dl (31.0-36.0); MEAN CORPUSCULAR VOLUME 74 fL (80-96); MONOCYTES # (AUTO) 0.7 /CMM (0.1-1.30); NEUTROPHILS # (AUTO) 19.7 /CMM (1.8-8.9); NEUTROPHILS % (AUTO) 85.1 % (43.0-81.0); PLATELET COUNT (AUTO) 267 /CMM (150-450); RED BLOOD CELL COUNT(AUTO) 4.11 MIL/uL (4.5-6.0); WHITE BLOOD COUNT (AUTO) 23.2 K/uL (4.3-11.0)
[2020-03-25 05:01] LABS: CALCIUM, SERUM 7.2 mg/dL (8.5-10.1); CARBON DIOXIDE 27 mmol/L (21-32); CHLORIDE 106 mmol/L (98-107); CREATININE 1.5 mg/dL (0.6-1.3); GLUCOSE 206 mg/dL (74-106); MAGNESIUM 1.9 mg/dL (1.8-2.4); PHOSPHORUS 2.9 mg/dL (2.5-4.9); POTASSIUM 3.2 mmol/L (3.5-5.1); SODIUM SERUM 141 mmol/L (136-145); UREA NITROGEN, BLOOD 28 mg/dL (7-18)
[2020-03-25] MEDS: HYDROCORTISONE SOD SUCCINATE 100 MG/2 ML VIAL IV SCH ×3 (05:29→21:01)
[2020-03-25] MEDS: VANCOMYCIN 0.75 GM in IV D5W 250 ML IV SCH ×2 (05:30→23:01)
[2020-03-25] MEDS: PROPOFOL 100 ML IV PRN ×3 (06:17→18:19)
[2020-03-25] MEDS ORDERED: IV NS 0.9% 250 ML IV ONE (06:30)
--- NOTE | 2020-03-25 07:20 | NUR ---
VSS remains stable.Hygienic measures rendered.All due medications administered. Good urine output.Diprivan gtt infusing at 15 mcg and Levophed gtt at 0.3 mcg. No acute distress noted.Report given to day shift RN for MARIELA.
[2020-03-25] MEDS: BLOOD SUGAR DIAGNOSTIC 1 EACH STRIP IN SCH ×4 (07:30→21:26)
--- NOTE | 2020-03-25 07:30 | NUR ---
RECEIVED PT INTUBATED AND SEDATED, ON FULL VENT SUPPORT. DIPRIVAN GTT INFUSING AT 15MCG, AND WILL TITRATE NEEDED PER PROTOCOL. LEVOPHED GTT INFUSING FOR BP SUPPORT PER PROTOCOL. NGT CLAMPED, AND REMAINS NPO PER DR MEDLEY. WILL CONTINUE TO MONITOR.
[2020-03-25] MEDS: DOCUSATE SODIUM LIQ 100 MG/10 ML UDC PO SCH (08:29)
[2020-03-25] MEDS: CLOPIDOGREL BISULFATE 75 MG TABLET PO SCH (08:29)
[2020-03-25] MEDS: OXCARBAZEPINE 150 MG TABLET PO SCH ×2 (08:30→16:32)
[2020-03-25] MEDS: CHOLECALCIFEROL 1,000 UNIT TABLET (VIT D3) PO SCH (08:30)
[2020-03-25] MEDS: DIVALPROEX SODIUM 125 MG CAP.SPRINK GT SCH ×2 (08:30→21:02)
[2020-03-25] MEDS: MULTIVITAMINS,THERAGRAN 1 UDTAB TABLET PO SCH (08:30)
[2020-03-25] MEDS: PSYLLIUM SEED 1 PKT PACKET PO SCH ×2 (08:30→16:32)
[2020-03-25] MEDS: FAMOTIDINE (20 MG) 20 MG TABLET PO SCH (08:30)
[2020-03-25] MEDS: ENOXAPARIN SODIUM 40 MG/0.4 ML DISP.SYRIN SQ SCH (08:30)
[2020-03-25] MEDS: LACTOBACILLUS RHAMNOSUS GG 1 EACH CAP.SPRINK PO SCH ×2 (08:30→16:32)
[2020-03-25] MEDS: INSULIN REGULAR, HUMAN 100 UNIT/ML 3 ML VIAL SQ PRN ×4 (08:55→21:28)
[2020-03-25] MEDS: IV D5/0.45 NACL 1,000 ML IV PRN (08:57)
[2020-03-25] MEDS ORDERED: POTASSIUM CHLORIDE 20 MEQ POWDER PACKET GT ONE (10:00)
[2020-03-25] MEDS: POLYETHYLENE GLYCOL 3350 17 GM POWD.PACK PO SCH (10:13)
[2020-03-25] MEDS ORDERED: POTASSIUM CL. PREMIX PERIPHER. 50 ML IV SCH (10:30)
[2020-03-25] MEDS ORDERED: ROCURONIUM BROMIDE 50 MG/5 ML IV ONE (11:05)
[2020-03-25] MEDS ORDERED: SUCCINYLCHOLINE CHLORIDE 20 MG/ML VIAL IV ONE (11:05)
[2020-03-25] MEDS ORDERED: ETOMIDATE 2 MG/ML VIAL IV ONE (11:05)
[2020-03-25] MEDS: MEROPENEM 1 G in IV NS 0.9% 100 ML IV SCH ×4 (12:44→23:47)
[2020-03-25] MEDS: NOREPINEPHRINE 32 MG in IV NS 0.9% 218 ML IV PRN (15:47)
--- NOTE | 2020-03-25 18:58 | NUR ---
REMAINS SEDATED. VENT DEPENDENT. ON DIPRIVAN GTT AND TITRATED PER PROTOCOL. ON LEPHOVED GTT TITRATED PER PROTOCOL. WILL ENDORSE TO NEXT SHIFT.
[2020-03-25] MEDS: IV NS 0.9% 1,000 ML IV PRN (19:46)
--- NOTE | 2020-03-25 20:00 | NUR ---
Received patient sedated and intubated on full vent support.Vent settings well tolerated. SPO2 98%.SR.VSS.Diprivan gtt infusing at 30 mcg and will titrate per protocol.Levophed gtt infusing and will titrate accordingly to keep SBP >90 R NGT intact & clamped.Placement verified.Remains on NPO status.FC to gravity drainage.Turned and repositioned.No acute distress noted.Continue monitoring.
[2020-03-25] MEDS: MIRTAZAPINE 15 MG TABLET PO SCH (21:02)
[2020-03-26] VITALS (77 sets, daily range): BP systolic 65–190; BP diastolic 27–104
--- NOTE | 2020-03-26 | NUR ---
Patient hemodynamically unstable.Levophed gtt titrated accordingly.Desaturating to low 80"s. RT at bedside.With moderate secretions suctioned PRN. No acute distress noted.
[2020-03-26] MEDS: PROPOFOL 100 ML IV PRN ×3 (03:57→18:49)
[2020-03-26 05:29] LABS: BASOPHILS # (AUTO) 0.1 /CMM (0.0-0.2); BASOPHILS % (AUTO) 0.5 % (0.0-2.0); HEMATOCRIT 30 % (39-51); HEMOGLOBIN 9.8 g/dL (13.5-17.5); LYMPHOCYTES # (AUTO) 2.2 /CMM (0.8-4.8); LYMPHOCYTES % (AUTO) 11.6 % (20.0-44.0); MEAN CORPUSCULAR HGB CONC 33 g/dl (31.0-36.0); MEAN CORPUSCULAR VOLUME 74 fL (80-96); MONOCYTES # (AUTO) 0.4 /CMM (0.1-1.30); MONOCYTES % (AUTO) 2.4 % (2.0-12.0); NEUTROPHILS # (AUTO) 16.2 /CMM (1.8-8.9); NEUTROPHILS % (AUTO) 85.5 % (43.0-81.0); PLATELET COUNT (AUTO) 235 /CMM (150-450); RED BLOOD CELL COUNT(AUTO) 4.09 MIL/uL (4.5-6.0); WHITE BLOOD COUNT (AUTO) 18.9 K/uL (4.3-11.0)
[2020-03-26 05:39] LABS: CALCIUM, SERUM 7.4 mg/dL (8.5-10.1); CREATININE 1.2 mg/dL (0.6-1.3); PHOSPHORUS 2.9 mg/dL (2.5-4.9); POTASSIUM 3.2 mmol/L (3.5-5.1)
[2020-03-26] MEDS: FLUDROCORTISONE 0.1 MG TABLET PO SCH ×3 (05:46→17:32)
[2020-03-26] MEDS: HYDROCORTISONE SOD SUCCINATE 100 MG/2 ML VIAL IV SCH ×3 (05:46→21:03)
--- NOTE | 2020-03-26 07:18 | NUR ---
Patient remains sedated.Tolerating vent settings well.SR.VSS.Levophed gtt titrated accordingly per protocol.Diprivan gtt infusing at 30 mcg and Levophed gtt infusing at 0.2mcg.Bed bath rendered and complete linens changed.Turned and repositioned offloading pressure points.No acute distress noted.Report given to day shift for MARIELA.
[2020-03-26] MEDS: DIVALPROEX SODIUM 125 MG CAP.SPRINK GT SCH ×2 (08:38→21:03)
[2020-03-26] MEDS: BLOOD SUGAR DIAGNOSTIC 1 EACH STRIP IN SCH ×4 (08:38→21:11)
[2020-03-26] MEDS: CLOPIDOGREL BISULFATE 75 MG TABLET PO SCH (08:38)
[2020-03-26] MEDS: MULTIVITAMINS,THERAGRAN 1 UDTAB TABLET PO SCH (08:38)
[2020-03-26] MEDS: PSYLLIUM SEED 1 PKT PACKET PO SCH ×2 (08:39→17:19)
[2020-03-26] MEDS: OXCARBAZEPINE 150 MG TABLET PO SCH ×2 (08:39→17:19)
[2020-03-26] MEDS: CHOLECALCIFEROL 1,000 UNIT TABLET (VIT D3) PO SCH (08:39)
[2020-03-26] MEDS: LACTOBACILLUS RHAMNOSUS GG 1 EACH CAP.SPRINK PO SCH ×2 (08:39→17:19)
[2020-03-26] MEDS: DOCUSATE SODIUM LIQ 100 MG/10 ML UDC PO SCH (08:43)
[2020-03-26] MEDS: FAMOTIDINE (20 MG) 20 MG TABLET PO SCH (08:43)
[2020-03-26] MEDS: INSULIN REGULAR, HUMAN 100 UNIT/ML 3 ML VIAL SQ PRN ×4 (08:49→21:15)
[2020-03-26] MEDS: ENOXAPARIN SODIUM 40 MG/0.4 ML DISP.SYRIN SQ SCH (08:50)
[2020-03-26 09:39] LABS: ABG BASE EXCESS 4.4 mmol/L; ABG OXYGEN SATURATION 98.9 % (92.0-98.5); ABG PCO2 34.4 mmHg (35.0-45.0); ABG PH 7.516 (7.350-7.450); ABG PO2 132.1 mmHg (75.0-100.0); AaDO2 257.9 mmHg; COHb 0.6 % (0.5-1.5); MetHb 0.3 % (0.0-1.5); SITE, ABG Right Radial
[2020-03-26] MEDS ORDERED: POTASSIUM CHLORIDE 20 MEQ POWDER PACKET GT ONE (10:00)
[2020-03-26] MEDS: POLYETHYLENE GLYCOL 3350 17 GM POWD.PACK PO SCH (10:49)
[2020-03-26] MEDS: MEROPENEM 1 G in IV NS 0.9% 100 ML IV SCH ×2 (12:23→23:55)
[2020-03-26] MEDS: IV NS 0.9% 1,000 ML IV PRN (15:41)
[2020-03-26] MEDS: VANCOMYCIN 0.75 GM in IV D5W 250 ML IV SCH (17:20)
--- NOTE | 2020-03-26 19:25 | NUR ---
LEVOPHED INCREASED THIS SHIFT FROM 0.2 TO 0.22 MCG, BP STABLE THIS SHIFT. PT TOLERATING VENT SETTINGS, NO SOB. DIPROVAN INCREASED FROM 30 MCG TO 40 MCG THIS SHIFT. 975 URINE OUTPUT RECORDED THIS SHIFT. NGT FEEDING RESTARTED THIS SHIFT RUNNING AT 65 ML/HR. ALL SAFETY MEASURES IN PLACE.
--- NOTE | 2020-03-26 20:00 | NUR ---
Received patient sedated and intubated on full vent support.Tolerating vent settings well. Spo2 99%.Diprivan for sedation infusing.SR.Levophed infusing for BP support will titrate per protocol.R NGT feeding infusing and placement verified.Maintained HOB elevated.No acute distress noted.Will turn and reposition Q 2 HRS per protocol.
[2020-03-26] MEDS: MIRTAZAPINE 15 MG TABLET PO SCH (21:11)
[2020-03-27] VITALS (30 sets, daily range): BP systolic 92–153; BP diastolic 34–78
[2020-03-27] MEDS: FLUDROCORTISONE 0.1 MG TABLET PO SCH ×5 (01:17→23:02)
[2020-03-27] MEDS: PROPOFOL 100 ML IV PRN ×4 (01:17→21:22)
[2020-03-27] MEDS ORDERED: NOREPINEPHRINE 4 MG/4 ML AMPUL IV ONE (02:13)
[2020-03-27 05:30] LABS: CALCIUM, SERUM 7.3 mg/dL (8.5-10.1); CREATININE 1.1 mg/dL (0.6-1.3); POTASSIUM 3.5 mmol/L (3.5-5.1)
[2020-03-27] MEDS: HYDROCORTISONE SOD SUCCINATE 100 MG/2 ML VIAL IV SCH ×3 (05:30→21:14)
[2020-03-27] MEDS: NOREPINEPHRINE 32 MG in IV NS 0.9% 218 ML IV PRN (05:49)
--- NOTE | 2020-03-27 07:17 | NUR ---
Patient remains sedated.Tolerating vent settings and tube feedings.VSS.All gtts infusing well. No acute distress noted.No significant change noted during the shift.All needs met.Possible PEG when stable.Per son patient remains FULL CODE.Report given to day shift for MARIELA.
[2020-03-27] MEDS: BLOOD SUGAR DIAGNOSTIC 1 EACH STRIP IN SCH ×4 (07:30→22:56)
--- NOTE | 2020-03-27 07:30 | NUR ---
PLATEN PRESS OPERATOR PATIENT IN BED, NO S/S OF DISTRESS, VENT TRACH IN PLACE SETTINGS 18 AC, 450 TV, 505 FIO2, PEEP 5, SEDATED ON PROPOFOL 40MCG/KG/MIN, LEVOPHED RUNNING AT 0.1MCG/KG/MIN, NS AT 60ML/HR, NGT GLUCERNA RUNNING 65ML/HR, PLACEMENT VERIFIED, DIOP DRAINING URINE, TELE MONITOR IN PLACE SINUS RHYTHM, HAFSA MIDLINE, INTACT CLEAN FLUSHES WELL, BED IN LOWEST LOCKED POSITION CALL LIGHT WITHIN REACH WILL CONTINUE TO MONITOR.
[2020-03-27] MEDS: DOCUSATE SODIUM LIQ 100 MG/10 ML UDC PO SCH (08:29)
[2020-03-27] MEDS: CHOLECALCIFEROL 1,000 UNIT TABLET (VIT D3) PO SCH (08:29)
[2020-03-27] MEDS: LACTOBACILLUS RHAMNOSUS GG 1 EACH CAP.SPRINK PO SCH ×2 (08:30→17:18)
[2020-03-27] MEDS: OXCARBAZEPINE 150 MG TABLET PO SCH ×2 (08:30→17:18)
[2020-03-27] MEDS: CLOPIDOGREL BISULFATE 75 MG TABLET PO SCH (08:30)
[2020-03-27] MEDS: MULTIVITAMINS,THERAGRAN 1 UDTAB TABLET PO SCH (08:30)
[2020-03-27] MEDS: FAMOTIDINE (20 MG) 20 MG TABLET PO SCH (08:30)
[2020-03-27] MEDS: PSYLLIUM SEED 1 PKT PACKET PO SCH ×2 (08:30→17:18)
[2020-03-27] MEDS: ENOXAPARIN SODIUM 40 MG/0.4 ML DISP.SYRIN SQ SCH (08:33)
[2020-03-27] MEDS: GLUCERNA 1.2 1,000 ML BOTTLE NG PRN (08:45)
[2020-03-27] MEDS: IV NS 0.9% 1,000 ML IV PRN (08:45)
[2020-03-27] MEDS: INSULIN REGULAR, HUMAN 100 UNIT/ML 3 ML VIAL SQ PRN ×4 (08:47→22:59)
--- NOTE | 2020-03-27 09:45 | NUR ---
HOME SECURITY ALARM INSTALLER DEPAKOTE NOT STALKED IN PIXIS, NOTIFIED PHARMACY, SAID THEY WOULD BRING IT UP SHORTLY.
[2020-03-27 10:04] LABS: BASOPHILS % (AUTO) 0.5 % (0.0-2.0); EOSINOPHILS % (AUTO) 0.2 % (0.0-6.0); HEMATOCRIT 28 % (39-51); HEMOGLOBIN 9.1 g/dL (13.5-17.5); LYMPHOCYTES # (AUTO) 0.9 /CMM (0.8-4.8); LYMPHOCYTES % (AUTO) 11.6 % (20.0-44.0); MEAN CORPUSCULAR HGB CONC 32 g/dl (31.0-36.0); MEAN CORPUSCULAR VOLUME 75 fL (80-96); MONOCYTES # (AUTO) 0.2 /CMM (0.1-1.30); MONOCYTES % (AUTO) 2.8 % (2.0-12.0); NEUTROPHILS # (AUTO) 6.8 /CMM (1.8-8.9); NEUTROPHILS % (AUTO) 84.9 % (43.0-81.0); PLATELET COUNT (AUTO) 214 /CMM (150-450); RED BLOOD CELL COUNT(AUTO) 3.77 MIL/uL (4.5-6.0); WHITE BLOOD COUNT (AUTO) 8.1 K/uL (4.3-11.0)
[2020-03-27 10:34] LABS: CALCIUM, SERUM 7.3 mg/dL (8.5-10.1); POTASSIUM 3.6 mmol/L (3.5-5.1)
[2020-03-27] MEDS: DIVALPROEX SODIUM 125 MG CAP.SPRINK GT SCH ×2 (11:02→21:14)
[2020-03-27] MEDS: MEROPENEM 1 G in IV NS 0.9% 100 ML IV SCH ×2 (11:51→23:01)
[2020-03-27] MEDS: VANCOMYCIN 0.75 GM in IV D5W 250 ML IV SCH (11:51)
[2020-03-27] MEDS: POLYETHYLENE GLYCOL 3350 17 GM POWD.PACK PO SCH (11:51)
--- NOTE | 2020-03-27 12:50 | NUR ---
CORRUGATOR HELPER PELEG ORDERED TO STOP PATIENT ON PROPOFOL DRIP TO SEE HOW HE DOES OFF OF SEDATION. ORDERED NOT TO TITRATE, TO STOP COMPLETELY ALL AT ONCE. MONITORING VITALS FOR CHANGES.
--- NOTE | 2020-03-27 19:37 | NUR ---
PT REC'D ORALLY INTUBATED VIA ETT 7.5 SECURED @ 23 CM LIP LINE ON [facility] VENT WITH THE SETTINGS OF AC 18, 450,40%,PEEP 5. ET TUBE SECURED AND PATENT. BILATERAL CHEST RISE NOTED. SX DONE . ALARMS ARE SET AND AUDIBLE. VENT PLUGGED INTO RED OUTLET. AMBU BAG@ BEDSIDE. WILL CONTINUE TO MONITOR T/O THE SHIFT.
--- NOTE | 2020-03-27 19:45 | NUR ---
RN NOTES RECEIVED PT IN BED SEDATED, ON VENT. O2 SAT AT 96 %. NO DISTRESS NOTED. ON TELE MONITORING SHOWS SR. PT ON NGT FEEDING OF GLUCERNA RUNNING AT 65ML/HR, TOLERATING WELL, CHECKED FOR PATENCY, PATENT, <5CC OF RESIDUAL. KEPT HOB ELEVATED. PT WITH VELMA. SOFT WRIST RESTRAINT, GOOD CIRCULATION NO SKIN BREAKDOWN NOTED. MIDLINE ON HAFSA PATENT AND INTACT, IVF NS RUNNING AT 60ML/HR, LEVOPHED ON 0.1MCG/KG/MIN AND PROPOFOL ON 30MCG/KG/MIN. ALL INFUSING WELL NO SIGNS OF INFILTRATION. DIOP CATH INDWELLING WELL WITH CLEAR YELLOW URINE OUTPUT. BED LOCKED IN LOWEST POSITION. SIDE RAILS UP X2. WILL CONTINUE TO MONITOR.
[2020-03-27] MEDS: MIRTAZAPINE 15 MG TABLET PO SCH (21:14)
[2020-03-28] VITALS (57 sets, daily range): BP systolic 64–147; BP diastolic 26–72
[2020-03-28] MEDS: GLUCERNA 1.2 1,000 ML BOTTLE NG PRN ×2 (00:58→17:21)
[2020-03-28] MEDS ORDERED: VANCOMYCIN 0.75 GM in IV D5W 250 ML IV SCH (01:00)
[2020-03-28] MEDS: IV NS 0.9% 1,000 ML IV PRN ×2 (05:06→22:51)
[2020-03-28] MEDS: PROPOFOL 100 ML IV PRN ×4 (05:07→20:46)
[2020-03-28] MEDS: FLUDROCORTISONE 0.1 MG TABLET PO SCH ×4 (05:07→23:30)
[2020-03-28] MEDS: HYDROCORTISONE SOD SUCCINATE 100 MG/2 ML VIAL IV SCH ×3 (05:07→20:25)
[2020-03-28 05:09] LABS: CALCIUM, SERUM 7.2 mg/dL (8.5-10.1); POTASSIUM 3.6 mmol/L (3.5-5.1)
--- NOTE | 2020-03-28 07:00 | NUR ---
rn note pt remain stable and sedated by propofol 30 mcg/kg/min. Unable to titrate/wean due to pt respiration twice as ac. No distress noted. tolerating vent settings. ngt remain patent, placement confirmed with charge nurse, tolerating gt feeding. no signs of aspiration. kept hob elevated. pt afebrile. juarez cath indwelling well. bed remain locked and side rails up. will endorse to next shift nurse for cristopher.
--- NOTE | 2020-03-28 07:30 | NUR ---
CREATIVE SPECIALIST OPENING NOTE PT SEDATED IN BED, ON VENT SETTINGS OF 7.5/23, AC 18, TV 450, FIO2 40, PEEP 5 PER MD ORDER. PT SR/ST PER MONITOR, TOLERATING WELL, NO SIGN OF RESP DISTRESS AND SPO2 OF 98%. PT HAS RT NARE NG TUBE, AUSCULTATED FOR POSITIVE PLACEMENT, 25CC RESIDUALS, PATENT AND GLUCERNA RUNNING @ 65ML/HR. PT HAS HAFSA MIDLINE RUNNING NS @ 60ML/HR, LEVO 0.1 MCG/KG/MIN AND DIPRIVAN @ 0.1 MCG/KG/MIN. PT BILATERAL SOFT WRIST RESTRAINTS, CMS IN TACT. PT HAS DIOP CATH DRAINING CLEAR YELLOW URINE TO GRAVITY. ALL PT SAFETY PRECAUTIONS IN PLACE. WILL CONT TO MONITOR
--- NOTE | 2020-03-28 08:00 | NUR ---
RN NOTE SEDATION VACATION PERFORMED. MEDIUM DISTRESS NOTED WITH ELEVATED HR, BP AND DECREASED SPO2. PT UNABLE TO TRACK OR VERBALLY RESPOND TO PROMPTS. PT PLACED BACK ON SEDATION, DIPRIVAN 30MCG/KG/MIN
[2020-03-28] MEDS: INSULIN REGULAR, HUMAN 100 UNIT/ML 3 ML VIAL SQ PRN ×4 (08:20→21:31)
[2020-03-28] MEDS: ENOXAPARIN SODIUM 40 MG/0.4 ML DISP.SYRIN SQ SCH (08:21)
[2020-03-28] MEDS: CHOLECALCIFEROL 1,000 UNIT TABLET (VIT D3) PO SCH (08:22)
[2020-03-28] MEDS: LACTOBACILLUS RHAMNOSUS GG 1 EACH CAP.SPRINK PO SCH ×2 (08:22→16:45)
[2020-03-28] MEDS: CLOPIDOGREL BISULFATE 75 MG TABLET PO SCH (08:22)
[2020-03-28] MEDS: MULTIVITAMINS,THERAGRAN 1 UDTAB TABLET PO SCH (08:22)
[2020-03-28] MEDS: PSYLLIUM SEED 1 PKT PACKET PO SCH ×2 (08:22→16:45)
[2020-03-28] MEDS: DOCUSATE SODIUM LIQ 100 MG/10 ML UDC PO SCH (08:23)
[2020-03-28] MEDS: BLOOD SUGAR DIAGNOSTIC 1 EACH STRIP IN SCH ×4 (08:23→21:22)
[2020-03-28] MEDS: FAMOTIDINE (20 MG) 20 MG TABLET PO SCH (08:24)
[2020-03-28] MEDS: OXCARBAZEPINE 150 MG TABLET PO SCH ×2 (08:24→16:45)
[2020-03-28] MEDS: DOCUSATE SODIUM LIQ 100 MG/10 ML UDC NG SCH (09:21)
[2020-03-28] MEDS: DIVALPROEX SODIUM 125 MG CAP.SPRINK GT SCH ×2 (09:21→20:25)
[2020-03-28] MEDS: NOREPINEPHRINE 8 MG in IV NS 0.9% 242 ML IV PRN ×2 (11:48→20:44)
[2020-03-28] MEDS: MEROPENEM 1 G in IV NS 0.9% 100 ML IV SCH ×2 (12:58→23:30)
[2020-03-28] MEDS: POLYETHYLENE GLYCOL 3350 17 GM POWD.PACK PO SCH (13:00)
--- NOTE | 2020-03-28 13:54 | NUR ---
RN NOTE PER DR MEDLEY, CAN TITRATE DIPRIVAN TO 100MCG/KG/MIN TO REACH APPROPRIATE LEVEL OF SEDATION
[2020-03-28] MEDS: VANCOMYCIN 0.75 GM in IV D5W 250 ML IV SCH (15:38)
--- NOTE | 2020-03-28 15:39 | NUR ---
RN NNOTE PT POSITIVE FOR KLEBSIELLA ESPL IN BLOOD- CONTACT PRECAUTIONS
--- NOTE | 2020-03-28 16:10 | NUR ---
RN NOTE PER DR MEDLEY OK TO RESUME TUBE FEED AT RATE OF 65ML/HR
--- NOTE | 2020-03-28 17:01 | NUR ---
RT PATIENT REMAINS ORALLY INTUBATED ON [facility] VENT. VENT ALARMS AND SETTINGS CHECKED + AUDIBLE. ETT SECURE AND IN PROPER POSITION. VENT PLUGGED INTO RED OUTLET. AMBU BAG AT HOB. Addendum: 03/28/20 at 1703 by VINICIUS HOFFMAN RT Amended: Links added.
--- NOTE | 2020-03-28 18:31 | NUR ---
ORACLE DISTRIBUTION CONSULTANT CLOSING NOTE PT IN STABLE CONDITION. ON VENT SETTINGS PER MD ORDER, NO SIGNS OF RESP DISTRESS, SPO2 OF 98%. NEW CARMITA MIDLINE #18 INTACT AND PATENT, SL. HAFSA MIDLINE RUNNING NS @ 60ML/HR, LEVO @ 0.3 MCG/KG/MIN, AND DIPRIVAN @ 70 MCG/KG/MIN, ALL PT SAFETY PRECAUTIONS IN PLACE. WILL ENDORSE MARIELA TO ONCOMING NURSE. 03/29/20 RN, CHECK H&H TO SEE ADMIN OF REBEL Addendum: 03/28/20 at 1841 by BRYNN SERRANO RN DISREGARD RN NOTE ABOUT H&H AND ELIQUIS- WRONG PT
--- NOTE | 2020-03-28 19:25 | NUR ---
RN NOTE PATIENT SEDATED ON ME[facility] VENT, TOLERATING SETTINGS WELL. NO S/S OF ANY RESPIRATORY DISTRESS. WITH HAFSA MIDLINE AND CARMITA MIDLINE PATENT AND INTACT WITH IV NS @ 60 ML/HR, LEVO @ 0.3 MCG/KG/MIN AND DIP @ 70 MCG/KG/MIN. DIOP CATH IN PLACE, DRAINING YELLOW URINE TO GRAVITY. SAFETY MEASURES IN PLACE. WILL CONTINUE TO MONITOR.
[2020-03-28] MEDS: MIRTAZAPINE 15 MG TABLET PO SCH (21:06)
[2020-03-29] VITALS (90 sets, daily range): BP systolic 85–131; BP diastolic 36–64
[2020-03-29] MEDS: PROPOFOL 100 ML IV PRN ×6 (00:25→20:35)
[2020-03-29] MEDS: NOREPINEPHRINE 8 MG in IV NS 0.9% 242 ML IV PRN ×2 (02:48→21:20)
[2020-03-29 04:46] LABS: CALCIUM, SERUM 6.9 mg/dL (8.5-10.1); CREATININE 0.9 mg/dL (0.6-1.3); POTASSIUM 3.8 mmol/L (3.5-5.1)
[2020-03-29] MEDS: FLUDROCORTISONE 0.1 MG TABLET PO SCH ×4 (05:20→23:44)
[2020-03-29] MEDS: HYDROCORTISONE SOD SUCCINATE 100 MG/2 ML VIAL IV SCH ×3 (05:20→21:04)
--- NOTE | 2020-03-29 07:07 | NUR ---
RN NOTE PATIENT SEDATED ON MECH VENT, TOLERATING SETTINGS WELL. O2 SAT 97% NO S/S OF ANY RESPIRATORY DISTRESS. WITH HAFSA MIDLINE AND CARMITA MIDLINE PATENT AND INTACT WITH IV NS @ 60 ML/HR, LEVO @ 0.2 MCG/KG/MIN AND DIP @ 70 MCG/KG/MIN. DIOP CATH IN PLACE, DRAINING YELLOW URINE TO GRAVITY WITH OUTPUT 1000ML. BILATERAL SOFT WRIST RESTRAINTS ON, NO S/S OF ANY SKIN BREAKDOWN, CIRCULATION CHECKED. SAFETY MEASURES IN PLACE. WILL ENDORSE TO ONCOMING SHIFT.
[2020-03-29] MEDS: DOCUSATE SODIUM LIQ 100 MG/10 ML UDC NG SCH (08:17)
[2020-03-29] MEDS: DIVALPROEX SODIUM 125 MG CAP.SPRINK GT SCH ×2 (08:17→21:05)
[2020-03-29] MEDS: LACTOBACILLUS RHAMNOSUS GG 1 EACH CAP.SPRINK PO SCH ×2 (08:18→16:20)
[2020-03-29] MEDS: CLOPIDOGREL BISULFATE 75 MG TABLET PO SCH (08:18)
[2020-03-29] MEDS: FAMOTIDINE (20 MG) 20 MG TABLET PO SCH (08:18)
[2020-03-29] MEDS: MULTIVITAMINS,THERAGRAN 1 UDTAB TABLET PO SCH (08:18)
[2020-03-29] MEDS: CHOLECALCIFEROL 1,000 UNIT TABLET (VIT D3) PO SCH (08:18)
[2020-03-29] MEDS: PSYLLIUM SEED 1 PKT PACKET PO SCH ×2 (08:18→16:21)
[2020-03-29] MEDS: OXCARBAZEPINE 150 MG TABLET PO SCH ×2 (08:18→16:20)
[2020-03-29] MEDS: VANCOMYCIN 0.75 GM in IV D5W 250 ML IV SCH (08:19)
[2020-03-29] MEDS: BLOOD SUGAR DIAGNOSTIC 1 EACH STRIP IN SCH ×4 (08:28→21:22)
[2020-03-29] MEDS: ENOXAPARIN SODIUM 40 MG/0.4 ML DISP.SYRIN SQ SCH (08:30)
[2020-03-29] MEDS: GLUCERNA 1.2 1,000 ML BOTTLE NG PRN (09:49)
[2020-03-29] MEDS: INSULIN REGULAR, HUMAN 100 UNIT/ML 3 ML VIAL SQ PRN ×4 (09:52→21:22)
[2020-03-29] MEDS: POLYETHYLENE GLYCOL 3350 17 GM POWD.PACK PO SCH (11:40)
[2020-03-29] MEDS: MEROPENEM 1 G in IV NS 0.9% 100 ML IV SCH ×2 (11:42→23:43)
[2020-03-29] MEDS: IV NS 0.9% 1,000 ML IV PRN (17:04)
--- NOTE | 2020-03-29 18:56 | NUR ---
RN CLOSING NOTE PATIENT REMAINS SEDATED. NO S/S OF ANY RESPIRATORY DISTRESS. HAFSA MIDLINE AND CARMITA MIDLINE PATENT AND INTACT WITH IV NS @ 60 ML/HR, LEVO @ 0.05 MCG/KG/MIN AND PROPOFOL@ 70 MCG/KG/MIN. DIOP CATH IN PLACE. L. BILATERAL SOFT WRIST RESTRAINTS ON, NO S/S OF ANY SKIN BREAKDOWN, CIRCULATION CHECKED. SAFETY MEASURES IN PLACE. WILL ENDORSE TO ONCOMING SHIFT FOR MARIELA.
--- NOTE | 2020-03-29 19:44 | NUR ---
RECEIVED PATIENT ON BED SEDATED. ON ETT/VENT SETTING PER MD FIO2 40% SPO2 98% TELE MONITOR READS SINUS RHYTHM 90'S. HAFSA MIDLINE AND CARMITA MIDLINE PATENT AND FLUSHED WITH IV NS @ 60 ML/HR, LEVO @ 0.05 MCG/KG/MIN AND PROPOFOL@ 70 MCG/KG/MIN. DIOP CATH IN PLACE DRAINING URINE VIA GRAVITY.R NARES NGTUBE PLACEMENT CHECKED WITH ONGOING GLUCERNA @ 65ML/HR TOLERATING WELL, BILATERAL SOFT WRIST RESTRAINTS ON, NO S/S OF ANY SKIN BREAKDOWN, CIRCULATION CHECKED. SAFETY MEASURES IN PLACE. WILL CONT TO MONITOR.
[2020-03-29] MEDS: MIRTAZAPINE 15 MG TABLET PO SCH (21:05)
[2020-03-30] VITALS (95 sets, daily range): BP systolic 81–136; BP diastolic 41–70
[2020-03-30] MEDS: PROPOFOL 100 ML IV PRN ×7 (00:35→23:47)
[2020-03-30] MEDS: GLUCERNA 1.2 1,000 ML BOTTLE NG PRN ×2 (00:44→18:32)
--- NOTE | 2020-03-30 00:52 | NUR ---
PT ON BED SEDATED STILL ON ETT/VENT SETTING PER MD FIO2 40% WITH SPO2 96% NO SIGN OF ANY DISTRESS AND PAIN NOTED WILL CONT TO MONITOR
[2020-03-30] MEDS: VANCOMYCIN 0.75 GM in IV D5W 250 ML IV SCH ×2 (02:29→21:01)
[2020-03-30 04:32] LABS: BASOPHILS % (AUTO) 0.1 % (0.0-2.0); EOSINOPHILS % (AUTO) 1.6 % (0.0-6.0); HEMATOCRIT 28 % (39-51); HEMOGLOBIN 8.9 g/dL (13.5-17.5); LYMPHOCYTES # (AUTO) 1.2 /CMM (0.8-4.8); LYMPHOCYTES % (AUTO) 18.5 % (20.0-44.0); MEAN CORPUSCULAR HGB CONC 32 g/dl (31.0-36.0); MEAN CORPUSCULAR VOLUME 76 fL (80-96); MONOCYTES # (AUTO) 0.2 /CMM (0.1-1.30); MONOCYTES % (AUTO) 2.5 % (2.0-12.0); NEUTROPHILS # (AUTO) 4.9 /CMM (1.8-8.9); NEUTROPHILS % (AUTO) 77.3 % (43.0-81.0); PLATELET COUNT (AUTO) 189 /CMM (150-450); RED BLOOD CELL COUNT(AUTO) 3.67 MIL/uL (4.5-6.0); WHITE BLOOD COUNT (AUTO) 6.4 K/uL (4.3-11.0)
[2020-03-30 04:45] LABS: BILIRUBIN,TOTAL 0.2 mg/dL (0.2-1.0); CALCIUM, SERUM 7.2 mg/dL (8.5-10.1); CREATININE 0.9 mg/dL (0.6-1.3); MAGNESIUM 2.2 mg/dL (1.8-2.4); PHOSPHORUS 3.1 mg/dL (2.5-4.9); POTASSIUM 4.1 mmol/L (3.5-5.1); TOTAL PROTEIN, SERUM 4.7 g/dL (6.4-8.2)
[2020-03-30] MEDS: HYDROCORTISONE SOD SUCCINATE 100 MG/2 ML VIAL IV SCH ×3 (05:02→21:01)
[2020-03-30] MEDS: FLUDROCORTISONE 0.1 MG TABLET PO SCH ×4 (05:02→23:35)
[2020-03-30 05:11] LABS: ALBUMIN 1.1 g/dL (3.4-5.0)
--- NOTE | 2020-03-30 06:53 | NUR ---
PT ON BED SEDATED STILL ON ETT/VENT SETTING PER MD FIO2 40% WITH SPO2 97% NO SIGN AND SYMPTOM OF DISTRESS NO PAIN NOTED BEDSIDE MONITOR READS SINUS RHYTHM 80S NO SIGNIFICANT CHANGES ON CONDITION NOTED, STILL ON BILATERAL WRIST RESTRAINTS, BED ON LOWEST POSITION AND LOCKED SIDE RAILS UP X2 WILL ENDORSED TO AM SHIFT NURSE
[2020-03-30] MEDS: FAMOTIDINE (20 MG) 20 MG TABLET PO SCH (07:02)
[2020-03-30] MEDS: BLOOD SUGAR DIAGNOSTIC 1 EACH STRIP IN SCH ×4 (07:06→21:37)
[2020-03-30] MEDS: INSULIN REGULAR, HUMAN 100 UNIT/ML 3 ML VIAL SQ PRN ×4 (07:08→21:19)
[2020-03-30] MEDS: CLOPIDOGREL BISULFATE 75 MG TABLET PO SCH (08:14)
[2020-03-30] MEDS: LACTOBACILLUS RHAMNOSUS GG 1 EACH CAP.SPRINK PO SCH ×2 (08:15→17:09)
[2020-03-30] MEDS: ENOXAPARIN SODIUM 40 MG/0.4 ML DISP.SYRIN SQ SCH (08:15)
[2020-03-30] MEDS: CHOLECALCIFEROL 1,000 UNIT TABLET (VIT D3) PO SCH (08:15)
[2020-03-30] MEDS: DOCUSATE SODIUM LIQ 100 MG/10 ML UDC NG SCH (08:16)
[2020-03-30] MEDS: DIVALPROEX SODIUM 125 MG CAP.SPRINK GT SCH ×2 (08:16→21:01)
[2020-03-30] MEDS: OXCARBAZEPINE 150 MG TABLET PO SCH ×2 (08:21→17:09)
[2020-03-30] MEDS: MULTIVITAMINS,THERAGRAN 1 UDTAB TABLET PO SCH (08:21)
[2020-03-30] MEDS: PSYLLIUM SEED 1 PKT PACKET PO SCH ×2 (08:21→17:12)
[2020-03-30] MEDS: MEROPENEM 1 G in IV NS 0.9% 100 ML IV SCH ×2 (11:13→23:35)
[2020-03-30] MEDS: POLYETHYLENE GLYCOL 3350 17 GM POWD.PACK PO SCH (11:14)
[2020-03-30] MEDS: IV NS 0.9% 1,000 ML IV PRN (14:23)
--- NOTE | 2020-03-30 20:00 | NUR ---
Received patient sedated and intubated on full vent support with same vent settings and tolerating well.SR.VSS.Sedated on Diprivan gtt at 70 mcg.Levophed gtt infusing for BP support and will titrate accordingly.With ongoing Tube feeding infusing via R NGT infusing well.Placement verified.No residual noted.Maintained HOB elevated.FC to gravity drainage. Turnned and repositioned.No acute distress noted.
[2020-03-30] MEDS: MIRTAZAPINE 15 MG TABLET PO SCH (21:02)
[2020-03-30] MEDS: NOREPINEPHRINE 8 MG in IV NS 0.9% 242 ML IV PRN (23:49)
[2020-03-31] VITALS (96 sets, daily range): BP systolic 82–175; BP diastolic 41–94
[2020-03-31] MEDS ORDERED: IV NS 0.9% 250 ML IV ONE (03:00)
[2020-03-31] MEDS: PROPOFOL 100 ML IV PRN ×3 (03:23→21:08)
[2020-03-31] MEDS: IV NS 0.9% 1,000 ML IV PRN ×2 (04:11→20:39)
[2020-03-31 05:03] LABS: BASOPHILS % (AUTO) 0.2 % (0.0-2.0); HEMATOCRIT 30 % (39-51); HEMOGLOBIN 9.2 g/dL (13.5-17.5); LYMPHOCYTES # (AUTO) 2.5 /CMM (0.8-4.8); MEAN CORPUSCULAR HGB CONC 31 g/dl (31.0-36.0); MEAN CORPUSCULAR VOLUME 76 fL (80-96); MONOCYTES # (AUTO) 0.2 /CMM (0.1-1.30); MONOCYTES % (AUTO) 3.1 % (2.0-12.0); NEUTROPHILS # (AUTO) 4.2 /CMM (1.8-8.9); NEUTROPHILS % (AUTO) 59.7 % (43.0-81.0); PLATELET COUNT (AUTO) 215 /CMM (150-450); RED BLOOD CELL COUNT(AUTO) 3.89 MIL/uL (4.5-6.0)
[2020-03-31 05:20] LABS: BILIRUBIN,TOTAL 0.2 mg/dL (0.2-1.0); CALCIUM, SERUM 7.5 mg/dL (8.5-10.1); CREATININE 0.9 mg/dL (0.6-1.3); MAGNESIUM 2.1 mg/dL (1.8-2.4); PHOSPHORUS 3.4 mg/dL (2.5-4.9); POTASSIUM 3.9 mmol/L (3.5-5.1)
[2020-03-31 05:26] LABS: ALBUMIN 1.2 g/dL (3.4-5.0)
[2020-03-31] MEDS: HYDROCORTISONE SOD SUCCINATE 100 MG/2 ML VIAL IV SCH ×3 (05:48→21:02)
[2020-03-31] MEDS: FLUDROCORTISONE 0.1 MG TABLET PO SCH ×4 (05:49→23:45)
--- NOTE | 2020-03-31 07:30 | NUR ---
ICU OPENING NOTE RECEIVED PATIENT IN BED, SEDATED. NO S/S OF DISTRESS AT THIS TIME. PATIENT CURRENTLY ON MECHANICAL VENTILATOR. INTUBATED WITH A 7.5 ETT. VENT SETTINGS CURRENTLY TOLERATED WELL. AC: 18 TV 450 FIO2 40% PEEP 5. PATIENT CURRENTLY SHOWING SINUS RHYTHM ON MONITOR. NGT IN PLACE, PATIENT RECEIVING TUBE FEEDING WITH GLUCERNA @ 65 ML/HR. TOLERATING TUBE FEEDING WELL. PATIENT HAS A HAFSA MIDLINE AND CARMITA MINDLINE, BOTH INTACT AND PATENT. PATIENT CURRENTLY ON PROPOFOL @ 70 MCG/KG/MIN. PATIENT ALSO ON LEVOPHED @ 0.08 MCG/KG/MIN & NS @ 60 ML/HR. PATIENT CURRENTLY ON BILATERAL SOFT WRIST RESTRAINTS. ALL SAFETY MEASURES IN PLACE PER HOSPITAL POLICY. BED LOCKED IN LOWEST POSITION. WILL CONT. TO MONITOR AND PROVIDE TREATMENT.
--- NOTE | 2020-03-31 07:39 | NUR ---
Patient resting VS remains stable.Tolerating tube feeding.Remains sedated on Diprivan at 70 mcg.Tolerating vent settings.AM care done.Levophed gtt infusing at 0.08 mcg. No significant change noted during the shift.Plan for SIMV mode vent settings today. Report given to day shift .
--- NOTE | 2020-03-31 08:00 | NUR ---
PROPOFOL STOPPED ORDERED BY DR. MEDLEY. PATIENT TO BE SET TO SIMV MODE BY RT. WILL CONT TO MONITOR PATIENT.
[2020-03-31] MEDS: DIVALPROEX SODIUM 125 MG CAP.SPRINK GT SCH ×2 (08:18→21:02)
[2020-03-31] MEDS: CHOLECALCIFEROL 1,000 UNIT TABLET (VIT D3) PO SCH (08:18)
[2020-03-31] MEDS: FAMOTIDINE (20 MG) 20 MG TABLET PO SCH (08:18)
[2020-03-31] MEDS: LACTOBACILLUS RHAMNOSUS GG 1 EACH CAP.SPRINK PO SCH ×2 (08:18→17:47)
[2020-03-31] MEDS: DOCUSATE SODIUM LIQ 100 MG/10 ML UDC NG SCH (08:18)
[2020-03-31] MEDS: CLOPIDOGREL BISULFATE 75 MG TABLET PO SCH (08:19)
[2020-03-31] MEDS: BLOOD SUGAR DIAGNOSTIC 1 EACH STRIP IN SCH ×4 (08:20→21:21)
[2020-03-31] MEDS: ENOXAPARIN SODIUM 40 MG/0.4 ML DISP.SYRIN SQ SCH (08:22)
[2020-03-31] MEDS: INSULIN REGULAR, HUMAN 100 UNIT/ML 3 ML VIAL SQ PRN ×4 (08:23→21:09)
[2020-03-31] MEDS: MULTIVITAMINS,THERAGRAN 1 UDTAB TABLET PO SCH (08:26)
[2020-03-31] MEDS: PSYLLIUM SEED 1 PKT PACKET PO SCH ×2 (08:26→17:48)
[2020-03-31] MEDS: OXCARBAZEPINE 150 MG TABLET PO SCH ×2 (08:26→17:48)
[2020-03-31 09:59] LABS: ABG BASE EXCESS 8.4 mmol/L; ABG PCO2 36.1 mmHg (35.0-45.0); ABG PH 7.554 (7.350-7.450); ABG PO2 75.5 mmHg (75.0-100.0); AaDO2 168.2 mmHg; PEEP,BG 5 cm H2O; SITE, ABG Left Radial; VENT MODE, BG SIMV PS15; VT, ABG 450 mL
[2020-03-31] MEDS: POLYETHYLENE GLYCOL 3350 17 GM POWD.PACK PO SCH (11:16)
[2020-03-31] MEDS: MEROPENEM 1 G in IV NS 0.9% 100 ML IV SCH ×2 (11:19→23:30)
[2020-03-31] MEDS: VANCOMYCIN 0.75 GM in IV D5W 250 ML IV SCH (15:29)
[2020-03-31] MEDS: GLUCERNA 1.2 1,000 ML BOTTLE NG PRN (18:01)
--- NOTE | 2020-03-31 18:40 | NUR ---
ICU cCLOSING NOTE PATIENT IN BED, SEDATED. NO S/S OF DISTRESS AT THIS TIME. PATIENT CURRENTLY ON MECHANICAL VENTILATOR. INTUBATED WITH A 7.5 ETT. VENT SETTINGS CURRENTLY TOLERATED WELL. PATIENT WAS UNABLE TO TOLERATED WEANING DOWN TO SIMV MODE ON VENTILATOR. SEDATION RESTARTED. PATIENT CURRENTLY SHOWING SINUS RHYTHM ON MONITOR. NGT IN PLACE, PATIENT RECEIVING TUBE FEEDING WITH GLUCERNA @ 65 ML/HR. TOLERATING TUBE FEEDING WELL. PATIENT HAS A HAFSA MIDLINE AND CARMITA MINDLINE, BOTH INTACT AND PATENT. PATIENT CURRENTLY ON BILATERAL SOFT WRIST RESTRAINTS. ALL SAFETY MEASURES IN PLACE PER HOSPITAL POLICY. BED LOCKED IN LOWEST POSITION. WILL ENDORSE TO ORDER ENTRY SPECIALIST NURSE FOR MARIELA.
--- NOTE | 2020-03-31 20:00 | NUR ---
Received patient remains intubated on full vent support on AC mode saturation unstable. Monitored by RT.Sedated with Diprivan at 70 mcg.Hemodynamically unstable, Levophed gtt infusing and will titrate accordingly per protocol.NGT feeding infusing well.No residual noted.NGT placement verified.Maintain HOB elevated.No vomiting noted.FC to gravity drainage.Turned and repositioned.No acute distress noted.
--- NOTE | 2020-03-31 20:03 | NUR ---
RT NOTE pt received on mechanical vent with current vent settings. orally intubated, ETT 7.5, 23@lip. alarms on and audible. vent plugged in to red outlet. no sob, no resp distress noted. ambu bag at [facility]. will continue to monitor t/o shift.
[2020-03-31] MEDS: MIRTAZAPINE 15 MG TABLET PO SCH (21:08)
[2020-03-31] MEDS: NOREPINEPHRINE 8 MG in IV NS 0.9% 242 ML IV PRN ×2 (22:59→23:02)
[2020-04-01] VITALS (101 sets, daily range): BP systolic 60–137; BP diastolic 34–65
[2020-04-01] MEDS: PROPOFOL 100 ML IV PRN ×7 (01:33→22:49)
[2020-04-01 05:00] LABS: BASOPHILS % (AUTO) 0.6 % (0.0-2.0); HEMATOCRIT 28 % (39-51); HEMOGLOBIN 8.7 g/dL (13.5-17.5); LYMPHOCYTES # (AUTO) 3.5 /CMM (0.8-4.8); LYMPHOCYTES % (AUTO) 43.6 % (20.0-44.0); MEAN CORPUSCULAR HGB CONC 32 g/dl (31.0-36.0); MEAN CORPUSCULAR VOLUME 76 fL (80-96); MONOCYTES # (AUTO) 0.2 /CMM (0.1-1.30); MONOCYTES % (AUTO) 2.6 % (2.0-12.0); NEUTROPHILS # (AUTO) 4.2 /CMM (1.8-8.9); NEUTROPHILS % (AUTO) 52.2 % (43.0-81.0); PLATELET COUNT (AUTO) 214 /CMM (150-450)
[2020-04-01 05:38] LABS: BILIRUBIN,TOTAL 0.2 mg/dL (0.2-1.0); CALCIUM, SERUM 7.1 mg/dL (8.5-10.1); CREATININE 0.8 mg/dL (0.6-1.3); MAGNESIUM 2.2 mg/dL (1.8-2.4); PHOSPHORUS 3.1 mg/dL (2.5-4.9); POTASSIUM 3.7 mmol/L (3.5-5.1); TOTAL PROTEIN, SERUM 4.8 g/dL (6.4-8.2)
[2020-04-01 05:41] LABS: ALBUMIN 1.1 g/dL (3.4-5.0)
[2020-04-01] MEDS: FLUDROCORTISONE 0.1 MG TABLET PO SCH ×3 (05:42→17:05)
[2020-04-01] MEDS: HYDROCORTISONE SOD SUCCINATE 100 MG/2 ML VIAL IV SCH ×3 (05:42→21:53)
--- NOTE | 2020-04-01 07:24 | NUR ---
Patient remains sedated and on same vent setting.No acute distress noted.VSS.SR/SB 50's non sustaining.Tolerating tube feeding.No vomiting noted.AM care done.All IV's infusing well. Turned and repositioned.ALL needs met.Report given to day shift for MARIELA.
--- NOTE | 2020-04-01 07:30 | NUR ---
ICU OPENING NOTE PATIENT CURRENTLY IN BED, SEDATED. CURRENTLY ON MECHANICAL VENTILATOR, SETTINGS TOLERATED WELL. NO S/S OF RESPIRATORY DISTRESS AT THIS TIME. SINUS RHYTHM SHOWING ON TELE MONITOR, HEART RATE CURRENTLY SHOWING 65BPM. NGT NOTED ON R NARES, RUNNING GLUCERNA @ 65 ML/HR. PATIENT TOLERATING GTUBE FEEDING WELL. LEFT UPPER ARM MIDLINE AND RIGHT UPPER ARM MIDLINE NOTED. BOTH INTACT AND PATENT, NO S/S OF INFECTION AT THIS TIME. PATIENT CURRENTLY HAS IV FLUIDS NORMAL SALINE 0.9% RUNNING AT 60ML/HR, PROPOFOL RUNNING @ 70MCG/KG/MIN AND LEVOPHED RUNNING AT 0.1 MCG/KG/MIN. PATIENT'S BLOOD PRESSURE READING CURRENTLY SHOWS 89/39. INCREASED TITRATION OF LEVOPHED TO 0.2 MCG/KG/MIN. ALL SAFETY MEASURES IN PLACE PER HOSPITAL POLICY. BED LOCKED IN LOWEST POSITION. WILL CONTINUE TO MONITOR PATIENT AND PROVIDE CARE.
[2020-04-01] MEDS: BLOOD SUGAR DIAGNOSTIC 1 EACH STRIP IN SCH ×4 (08:15→21:54)
[2020-04-01] MEDS: INSULIN REGULAR, HUMAN 100 UNIT/ML 3 ML VIAL SQ PRN ×4 (08:20→22:26)
[2020-04-01] MEDS: PSYLLIUM SEED 1 PKT PACKET PO SCH ×2 (08:33→16:56)
[2020-04-01] MEDS: DOCUSATE SODIUM LIQ 100 MG/10 ML UDC NG SCH (08:33)
[2020-04-01] MEDS: MULTIVITAMINS,THERAGRAN 1 UDTAB TABLET PO SCH (08:33)
[2020-04-01] MEDS: LACTOBACILLUS RHAMNOSUS GG 1 EACH CAP.SPRINK PO SCH ×2 (08:33→16:56)
[2020-04-01] MEDS: FAMOTIDINE (20 MG) 20 MG TABLET PO SCH (08:33)
[2020-04-01] MEDS: CLOPIDOGREL BISULFATE 75 MG TABLET PO SCH (08:33)
[2020-04-01] MEDS: CHOLECALCIFEROL 1,000 UNIT TABLET (VIT D3) PO SCH (08:34)
[2020-04-01] MEDS: OXCARBAZEPINE 150 MG TABLET PO SCH ×2 (08:34→16:56)
[2020-04-01] MEDS: ENOXAPARIN SODIUM 40 MG/0.4 ML DISP.SYRIN SQ SCH (08:35)
[2020-04-01] MEDS: VANCOMYCIN 0.75 GM in IV D5W 250 ML IV SCH (08:36)
--- NOTE | 2020-04-01 09:00 | NUR ---
UNABLE TO GIVE DIVALPROEX SPRINKLES DUE TO NO STOCK IN [place]IX[place]. PHARMACY MADE AWARE, AWAITING DELIVERY FOR ADMINISTRATION
[2020-04-01] MEDS: NOREPINEPHRINE 8 MG in IV NS 0.9% 242 ML IV PRN ×2 (09:48→20:34)
[2020-04-01] MEDS: POLYETHYLENE GLYCOL 3350 17 GM POWD.PACK PO SCH (11:55)
[2020-04-01] MEDS: DIVALPROEX SODIUM 125 MG CAP.SPRINK GT SCH ×2 (11:56→21:53)
[2020-04-01] MEDS: MEROPENEM 1 G in IV NS 0.9% 100 ML IV SCH (11:59)
[2020-04-01 13:15] LABS: BAND % (MANUAL) 4 % (0.0-5.0); EOSINOPHILS % (MANUAL) 2 % (0-4); LYMPHOCYTES % (MANUAL) 34 % (16-48); MONOCYTES % (MANUAL) 9 % (0-11.0); NEUTROPHILS % (MANUAL) 50 (42-76); REACTIVE LYMPHOCYTES 1 % (0-0)
[2020-04-01] MEDS: IV NS 0.9% 1,000 ML IV PRN (13:35)
--- NOTE | 2020-04-01 19:14 | NUR ---
PATIENT CURRENTLY IN BED, SEDATED. NO S/S OF DISTRESS AT THIS TIME. ALL DUE MEDS GIVEN. WILL ENDORSE TO PIPELINES SUPERINTENDENT NURSE FOR MARIELA.
--- NOTE | 2020-04-01 19:15 | NUR ---
RN NOTE RECEIVED PATIENT IN BED, SEDATED, IN NO S/SX OF ACUTE DISTRESS AT THIS TIME. PATIENT ON ET TUBE CONNECTED TO MECHANICAL VENT WITH SETTINGS PRESCRIBED, TOLERATING WELL, SATURATION AT 97%, SR ON THE MONITOR, HR IS 75. NOTED NASOGASTRIC TUBE AT R NARE, PLACEMENT WAS CHECKED BY ASPIRATION AND AUSCULTATION, NO RESIDUAL NOTED, TUBE FEEDING OF GLUCERNA AT 65 ML/HR. NOTED CARMITA AND HAFSA MIDLINE, ALL HUBS PATENT AND FLUSHING WELL, NO S/S OF INFECTION, WITH NS INFUSING AT 60 ML/HR, DIPRIVAN AT 70 MCG, AND LEVOPHED AT 0.2 MCG. DIOP CATHETER CONNECTED TO URINE BAG IN PLACE IN PLACE DRAINING TO A CLEAR YELLOW OUTPUT. SAFETY MEASURES IMPLEMENTED. PATIENT BED ALARM IS ON. HEAD OF BED ELEVATED. BED IS LOCKED, IN LOWEST POSITION AND SIDE RAILS UP. CALL LIGHT WITHIN REACH OF THE PATIENT. WILL CONTINUE TO MONITOR AND REASSESS FOR ANY CHANGES.
[2020-04-01] MEDS: MIRTAZAPINE 15 MG TABLET PO SCH (21:54)
[2020-04-02] VITALS (96 sets, daily range): BP systolic 82–138; BP diastolic 43–83
[2020-04-02] MEDS: MEROPENEM 1 G in IV NS 0.9% 100 ML IV SCH ×3 (00:31→23:46)
[2020-04-02] MEDS: FLUDROCORTISONE 0.1 MG TABLET PO SCH ×5 (00:31→23:46)
[2020-04-02] MEDS: PROPOFOL 100 ML IV PRN ×7 (01:52→23:02)
[2020-04-02] MEDS: VANCOMYCIN 0.75 GM in IV D5W 250 ML IV SCH (03:17)
[2020-04-02] MEDS: HYDROCORTISONE SOD SUCCINATE 100 MG/2 ML VIAL IV SCH ×3 (05:17→21:12)
[2020-04-02] MEDS: IV NS 0.9% 1,000 ML IV PRN ×2 (05:25→22:03)
[2020-04-02] MEDS: GLUCERNA 1.2 1,000 ML BOTTLE NG PRN (05:25)
[2020-04-02] MEDS: NOREPINEPHRINE 8 MG in IV NS 0.9% 242 ML IV PRN ×2 (06:19→15:45)
[2020-04-02 06:59] LABS: CREATININE 0.8 mg/dL (0.6-1.3); MAGNESIUM 2.2 mg/dL (1.8-2.4); PHOSPHORUS 2.7 mg/dL (2.5-4.9); POTASSIUM 3.8 mmol/L (3.5-5.1)
--- NOTE | 2020-04-02 07:15 | NUR ---
ICU OPENING NOTE PATIENT CURRENTLY IN BED, SEDATED. CURRENTLY ON MECHANICAL VENTILATOR, SETTINGS TOLERATED WELL. NO S/S OF RESPIRATORY DISTRESS AT THIS TIME. SINUS RHYTHM SHOWING ON TELE MONITOR, HEART RATE CURRENTLY SHOWING 72 BPM. NGT NOTED ON R NARES, RUNNING GLUCERNA @ 65 ML/HR. PATIENT TOLERATING GTUBE FEEDING WELL. LEFT UPPER ARM MIDLINE AND RIGHT UPPER ARM MIDLINE NOTED. BOTH INTACT AND PATENT, NO S/S OF INFECTION AT THIS TIME. PATIENT CURRENTLY HAS IV FLUIDS NORMAL SALINE 0.9% RUNNING AT 60ML/HR, PROPOFOL RUNNING @ 70MCG/KG/MIN AND LEVOPHED RUNNING AT 0.2 MCG/KG/MIN. ALL SAFETY MEASURES IN PLACE PER HOSPITAL POLICY. BED LOCKED IN LOWEST POSITION. WILL CONTINUE TO MONITOR PATIENT AND PROVIDE CARE.
[2020-04-02] MEDS: BLOOD SUGAR DIAGNOSTIC 1 EACH STRIP IN SCH ×4 (08:18→23:46)
[2020-04-02] MEDS: INSULIN REGULAR, HUMAN 100 UNIT/ML 3 ML VIAL SQ PRN ×3 (08:18→17:13)
[2020-04-02] MEDS: DOCUSATE SODIUM LIQ 100 MG/10 ML UDC NG SCH (08:20)
[2020-04-02] MEDS: DIVALPROEX SODIUM 125 MG CAP.SPRINK GT SCH ×2 (08:20→21:12)
[2020-04-02] MEDS: ENOXAPARIN SODIUM 40 MG/0.4 ML DISP.SYRIN SQ SCH (08:20)
[2020-04-02] MEDS: PSYLLIUM SEED 1 PKT PACKET PO SCH ×2 (08:20→17:10)
[2020-04-02] MEDS: MULTIVITAMINS,THERAGRAN 1 UDTAB TABLET PO SCH (08:21)
[2020-04-02] MEDS: CHOLECALCIFEROL 1,000 UNIT TABLET (VIT D3) PO SCH (08:21)
[2020-04-02] MEDS: OXCARBAZEPINE 150 MG TABLET PO SCH ×2 (08:21→17:10)
[2020-04-02] MEDS: FAMOTIDINE (20 MG) 20 MG TABLET PO SCH (08:21)
[2020-04-02] MEDS: LACTOBACILLUS RHAMNOSUS GG 1 EACH CAP.SPRINK PO SCH ×2 (08:21→17:10)
[2020-04-02] MEDS: CLOPIDOGREL BISULFATE 75 MG TABLET PO SCH (08:21)
[2020-04-02] MEDS: POLYETHYLENE GLYCOL 3350 17 GM POWD.PACK PO SCH (11:15)
[2020-04-02] MEDS ORDERED: DEXTROSE 50%-WATER 50 ML DISP.SYRIN IV PRN (12:30)
--- NOTE | 2020-04-02 18:56 | NUR ---
ICU CLOSING NOTE PATIENT CURRENTLY IN BED, SEDATED. CURRENTLY ON MECHANICAL VENTILATOR, SETTINGS TOLERATED WELL. NO S/S OF RESPIRATORY DISTRESS AT THIS TIME. SINUS RHYTHM SHOWING ON TELE MONITOR. NGT NOTED ON R NARES, RUNNING GLUCERNA @ 55 ML/HR. TUBE FEEDING RATE DECREASED ORDERED BY MD. PATIENT TOLERATING GTUBE FEEDING WELL. LEFT UPPER ARM MIDLINE AND RIGHT UPPER ARM MIDLINE NOTED. BOTH INTACT AND PATENT, NO S/S OF INFECTION AT THIS TIME. PATIENT CURRENTLY HAS IV FLUIDS NORMAL SALINE 0.9% RUNNING AT 60ML/HR, PROPOFOL RUNNING @ 70MCG/KG/MIN AND LEVOPHED RUNNING AT 0.2 MCG/KG/MIN. ALL SAFETY MEASURES IN PLACE PER HOSPITAL POLICY. BED LOCKED IN LOWEST POSITION. WILL ENDORSE TO BUSINESS CONTINUITY PLANNER NURSE FOR MARIELA.
--- NOTE | 2020-04-02 19:30 | NUR ---
RN NOTE RECEIVED PATIENT IN BED, SEDATED, IN NO S/SX OF ACUTE DISTRESS AT THIS TIME. PATIENT ON ET TUBE CONNECTED TO MECHANICAL VENT WITH SETTINGS PRESCRIBED, TOLERATING WELL, SATURATION AT 95%, SR ON THE MONITOR, HR IS 78. NOTED NASOGASTRIC TUBE AT R NARE, PLACEMENT WAS CHECKED BY ASPIRATION AND AUSCULTATION, NO RESIDUAL NOTED, TUBE FEEDING OF GLUCERNA AT 65 ML/HR. NOTED CARMITA AND HAFSA MIDLINE, ALL HUBS PATENT AND FLUSHING WELL, NO S/S OF INFECTION, WITH NS INFUSING AT 60 ML/HR, DIPRIVAN AT 70 MCG, AND LEVOPHED AT 0.2 MCG. DIOP CATHETER CONNECTED TO URINE BAG IN PLACE IN PLACE DRAINING TO A CLEAR YELLOW OUTPUT. SAFETY MEASURES IMPLEMENTED. PATIENT BED ALARM IS ON. HEAD OF BED ELEVATED. BED IS LOCKED, IN LOWEST POSITION AND SIDE RAILS UP. CALL LIGHT WITHIN REACH OF THE PATIENT. WILL CONTINUE TO MONITOR AND REASSESS FOR ANY CHANGES.
[2020-04-02] MEDS: MIRTAZAPINE 15 MG TABLET PO SCH (21:12)
[2020-04-03] VITALS (98 sets, daily range): BP systolic 86–117; BP diastolic 40–66
[2020-04-03] MEDS: INSULIN REGULAR, HUMAN 100 UNIT/ML 3 ML VIAL SQ PRN ×4 (00:06→18:14)
[2020-04-03] MEDS: GLUCERNA 1.2 1,000 ML BOTTLE NG PRN ×2 (00:11→15:12)
[2020-04-03] MEDS: NOREPINEPHRINE 8 MG in IV NS 0.9% 242 ML IV PRN (03:05)
[2020-04-03] MEDS: PROPOFOL 100 ML IV PRN ×4 (03:06→18:24)
[2020-04-03 05:17] LABS: BASOPHILS % (AUTO) 0.4 % (0.0-2.0); EOSINOPHILS % (AUTO) 2.2 % (0.0-6.0); HEMATOCRIT 24 % (39-51); HEMOGLOBIN 7.6 g/dL (13.5-17.5); LYMPHOCYTES # (AUTO) 2.9 /CMM (0.8-4.8); LYMPHOCYTES % (AUTO) 42.1 % (20.0-44.0); MEAN CORPUSCULAR HGB CONC 32 g/dl (31.0-36.0); MEAN CORPUSCULAR VOLUME 77 fL (80-96); MONOCYTES # (AUTO) 0.2 /CMM (0.1-1.30); MONOCYTES % (AUTO) 2.9 % (2.0-12.0); NEUTROPHILS # (AUTO) 3.6 /CMM (1.8-8.9); NEUTROPHILS % (AUTO) 52.4 % (43.0-81.0); PLATELET COUNT (AUTO) 217 /CMM (150-450); WHITE BLOOD COUNT (AUTO) 6.9 K/uL (4.3-11.0)
[2020-04-03] MEDS: FLUDROCORTISONE 0.1 MG TABLET PO SCH ×3 (05:19→17:06)
[2020-04-03] MEDS: HYDROCORTISONE SOD SUCCINATE 100 MG/2 ML VIAL IV SCH ×3 (05:19→21:06)
[2020-04-03] MEDS: BLOOD SUGAR DIAGNOSTIC 1 EACH STRIP IN SCH ×3 (05:20→18:08)
[2020-04-03 05:38] LABS: CALCIUM, SERUM 7.1 mg/dL (8.5-10.1); CREATININE 0.8 mg/dL (0.6-1.3); MAGNESIUM 2.2 mg/dL (1.8-2.4); PHOSPHORUS 2.8 mg/dL (2.5-4.9); POTASSIUM 3.7 mmol/L (3.5-5.1)
[2020-04-03] MEDS: MULTIVITAMINS,THERAGRAN 1 UDTAB TABLET PO SCH (08:26)
[2020-04-03] MEDS: LACTOBACILLUS RHAMNOSUS GG 1 EACH CAP.SPRINK PO SCH ×2 (08:26→16:18)
[2020-04-03] MEDS: DOCUSATE SODIUM LIQ 100 MG/10 ML UDC NG SCH (08:27)
[2020-04-03] MEDS: FAMOTIDINE (20 MG) 20 MG TABLET PO SCH (08:27)
[2020-04-03] MEDS: PSYLLIUM SEED 1 PKT PACKET PO SCH ×2 (08:27→16:19)
[2020-04-03] MEDS: DIVALPROEX SODIUM 125 MG CAP.SPRINK GT SCH ×2 (08:27→21:06)
[2020-04-03] MEDS: OXCARBAZEPINE 150 MG TABLET PO SCH ×2 (08:27→16:18)
[2020-04-03] MEDS: CLOPIDOGREL BISULFATE 75 MG TABLET PO SCH (08:28)
[2020-04-03] MEDS: CHOLECALCIFEROL 1,000 UNIT TABLET (VIT D3) PO SCH (08:29)
[2020-04-03] MEDS: ENOXAPARIN SODIUM 40 MG/0.4 ML DISP.SYRIN SQ SCH (08:31)
[2020-04-03] MEDS: POLYETHYLENE GLYCOL 3350 17 GM POWD.PACK PO SCH (11:26)
[2020-04-03] MEDS: MEROPENEM 1 G in IV NS 0.9% 100 ML IV SCH (11:29)
[2020-04-03] MEDS: IV NS 0.9% 1,000 ML IV PRN (15:12)
[2020-04-03] MEDS: MIRTAZAPINE 15 MG TABLET PO SCH (21:06)
[2020-04-04] VITALS (93 sets, daily range): BP systolic 84–149; BP diastolic 41–95
[2020-04-04] MEDS: NOREPINEPHRINE 8 MG in IV NS 0.9% 242 ML IV PRN ×2 (00:02→22:53)
[2020-04-04] MEDS: PROPOFOL 100 ML IV PRN ×4 (00:02→23:26)
[2020-04-04] MEDS: MEROPENEM 1 G in IV NS 0.9% 100 ML IV SCH (00:16)
[2020-04-04] MEDS: FLUDROCORTISONE 0.1 MG TABLET PO SCH ×5 (00:21→23:39)
[2020-04-04] MEDS: BLOOD SUGAR DIAGNOSTIC 1 EACH STRIP IN SCH ×5 (00:21→23:34)
[2020-04-04] MEDS: INSULIN REGULAR, HUMAN 100 UNIT/ML 3 ML VIAL SQ PRN ×5 (00:23→23:35)
[2020-04-04 05:19] LABS: BASOPHILS % (AUTO) 0.3 % (0.0-2.0); EOSINOPHILS % (AUTO) 1.7 % (0.0-6.0); HEMATOCRIT 24 % (39-51); HEMOGLOBIN 7.7 g/dL (13.5-17.5); LYMPHOCYTES # (AUTO) 3.5 /CMM (0.8-4.8); LYMPHOCYTES % (AUTO) 42.5 % (20.0-44.0); MEAN CORPUSCULAR HGB CONC 32 g/dl (31.0-36.0); MEAN CORPUSCULAR VOLUME 78 fL (80-96); MONOCYTES # (AUTO) 0.2 /CMM (0.1-1.30); MONOCYTES % (AUTO) 3.1 % (2.0-12.0); NEUTROPHILS # (AUTO) 4.3 /CMM (1.8-8.9); NEUTROPHILS % (AUTO) 52.4 % (43.0-81.0); PLATELET COUNT (AUTO) 231 /CMM (150-450); WHITE BLOOD COUNT (AUTO) 8.1 K/uL (4.3-11.0)
[2020-04-04] MEDS: GLUCERNA 1.2 1,000 ML BOTTLE NG PRN (05:25)
[2020-04-04] MEDS: HYDROCORTISONE SOD SUCCINATE 100 MG/2 ML VIAL IV SCH ×3 (05:28→21:46)
[2020-04-04 05:36] LABS: CALCIUM, SERUM 7.2 mg/dL (8.5-10.1); CREATININE 0.8 mg/dL (0.6-1.3); MAGNESIUM 2.2 mg/dL (1.8-2.4); POTASSIUM 3.8 mmol/L (3.5-5.1)
--- NOTE | 2020-04-04 07:00 | NUR ---
MEDICAL OFFICE REP CLOSING NOTES NO ACUTE CHANGES NOTED THROUGHOUT SHIFT. PATIENT REMAINS ORALLY INTUBATED ON MECHANICAL VENT, SEDATED ON DIPRIVAN DRIP @ 40 MCG/KG/MIN, PRESSOR SUPPORT LEVOPHED DRIP @ 0.08MCG/KG/MIN. WILL ENDORSE PATIENT TO THE AM SHIFT NURSE FOR MARIELA
--- NOTE | 2020-04-04 07:30 | NUR ---
AIRCREWMAN OPENING NOTES RECEIVED PT ON BED SEDATED. ON ETT/VENT SETTING FIO2 40% SPO2 96%, TOLERATING VENT SETTINGS WELL. TELE MONITOR READS SINUS RHYTHM. HAFSA MIDLINE AND CARMITA MIDLINE PATENT BOTH INTACT AND PATENT. NS @60 ML/HR, LEVO @0.08 MCG/KG/MIN AND PROPOFOL @40 MCG/KG/MIN. DIOP CATH IN PLACE DRAINING URINE VIA GRAVITY. R NARES NGTUBE POSITIVE PLACEMENT CHECKED WITH ONGOING GLUCERNA @65ML/HR TOLERATING FEEDING WELL. SAFETY MEASURES IN PLACE. CALL LIGHT WITHIN REACH. BED LOCKED AND AT LOWEST POSITION. WILL CONTINUE TO MONITOR.
[2020-04-04 07:45] LABS: ABG BASE EXCESS 11.4 mmol/L; ABG OXYGEN SATURATION 93.3 % (92.0-98.5); ABG PCO2 44.5 mmHg (35.0-45.0); ABG PH 7.518 (7.350-7.450); ABG PO2 67.1 mmHg (75.0-100.0); AaDO2 166.9 mmHg; COHb 1.9 % (0.5-1.5); O2Hb 91.5 % (94.0-97.0); SITE, ABG Left Radial; VENT MODE, BG AC 18 450 40% +5
[2020-04-04] MEDS: FAMOTIDINE (20 MG) 20 MG TABLET PO SCH (07:46)
[2020-04-04] MEDS: IV NS 0.9% 1,000 ML IV PRN ×2 (08:18→23:30)
--- NOTE | 2020-04-04 08:25 | NUR ---
RN NOTES PER BERNADINE GREENE FOR WEANING TRIAL.
[2020-04-04] MEDS: MULTIVITAMINS,THERAGRAN 1 UDTAB TABLET PO SCH (09:00)
[2020-04-04] MEDS: OXCARBAZEPINE 150 MG TABLET PO SCH ×2 (09:00→16:52)
[2020-04-04] MEDS: LACTOBACILLUS RHAMNOSUS GG 1 EACH CAP.SPRINK PO SCH ×2 (09:00→16:51)
[2020-04-04] MEDS: CHOLECALCIFEROL 1,000 UNIT TABLET (VIT D3) PO SCH (09:00)
[2020-04-04] MEDS: DIVALPROEX SODIUM 125 MG CAP.SPRINK GT SCH ×2 (09:00→21:46)
[2020-04-04] MEDS: PSYLLIUM SEED 1 PKT PACKET PO SCH ×2 (09:01→16:52)
[2020-04-04] MEDS: CLOPIDOGREL BISULFATE 75 MG TABLET PO SCH (09:01)
[2020-04-04] MEDS: DOCUSATE SODIUM LIQ 100 MG/10 ML UDC NG SCH (09:01)
[2020-04-04] MEDS: ENOXAPARIN SODIUM 40 MG/0.4 ML DISP.SYRIN SQ SCH (09:03)
[2020-04-04] MEDS: POLYETHYLENE GLYCOL 3350 17 GM POWD.PACK PO SCH (12:15)
--- NOTE | 2020-04-04 18:44 | NUR ---
STACK YIELD ENGINEER CLOSING NOTES NO SIGNIFICANT CHANGES NOTED THROUGHOUT SHIFT. SEDATED ON DIPRIVAN @40 MCG/KG/MIN, LEVOPHED @0.1 MCG/KG/MIN. SAFETY MEASURES IN PLACE. BED LOCKED AND AT LOWEST POSITION. HOB ELEVATED. CALL LIGHT WITHIN REACH. WILL ENDORSE TO NIGHT NURSE FOR MARIELA
[2020-04-04] MEDS: MIRTAZAPINE 15 MG TABLET PO SCH (21:46)
[2020-04-05] VITALS (90 sets, daily range): BP systolic 79–140; BP diastolic 37–69
[2020-04-05] MEDS: GLUCERNA 1.2 1,000 ML BOTTLE NG PRN ×2 (01:39→16:37)
[2020-04-05] MEDS: PROPOFOL 100 ML IV PRN ×3 (03:58→15:40)
--- NOTE | 2020-04-05 04:00 | NUR ---
CEMENT TRUCK DRIVER NOTES NOTED WITH BMX1, SOFT, BROWN, FORMED. FULL BED ABTH RENDERED, TOLERATED WELL, WILL MONITOR CLOSELY
[2020-04-05 05:01] LABS: BASOPHILS % (AUTO) 0.5 % (0.0-2.0); EOSINOPHILS % (AUTO) 2.9 % (0.0-6.0); HEMATOCRIT 21 % (39-51); LYMPHOCYTES # (AUTO) 3.3 /CMM (0.8-4.8); LYMPHOCYTES % (AUTO) 39.8 % (20.0-44.0); MEAN CORPUSCULAR HGB CONC 31 g/dl (31.0-36.0); MEAN CORPUSCULAR VOLUME 80 fL (80-96); MONOCYTES # (AUTO) 0.3 /CMM (0.1-1.30); MONOCYTES % (AUTO) 3.2 % (2.0-12.0); NEUTROPHILS # (AUTO) 4.4 /CMM (1.8-8.9); NEUTROPHILS % (AUTO) 53.6 % (43.0-81.0); PLATELET COUNT (AUTO) 241 /CMM (150-450); RED BLOOD CELL COUNT(AUTO) 2.61 MIL/uL (4.5-6.0); WHITE BLOOD COUNT (AUTO) 8.2 K/uL (4.3-11.0)
[2020-04-05 05:05] LABS: HEMOGLOBIN 6.5 g/dL (13.5-17.5)
[2020-04-05 05:13] LABS: BILIRUBIN,TOTAL 0.1 mg/dL (0.2-1.0); CALCIUM, SERUM 7.4 mg/dL (8.5-10.1); CREATININE 0.8 mg/dL (0.6-1.3); MAGNESIUM 2.2 mg/dL (1.8-2.4); PHOSPHORUS 2.7 mg/dL (2.5-4.9); POTASSIUM 3.6 mmol/L (3.5-5.1); TOTAL PROTEIN, SERUM 4.9 g/dL (6.4-8.2)
[2020-04-05 05:20] LABS: ALBUMIN 1.3 g/dL (3.4-5.0)
[2020-04-05] MEDS: BLOOD SUGAR DIAGNOSTIC 1 EACH STRIP IN SCH ×3 (05:24→16:38)
[2020-04-05] MEDS: INSULIN REGULAR, HUMAN 100 UNIT/ML 3 ML VIAL SQ PRN ×3 (05:26→17:57)
[2020-04-05] MEDS: HYDROCORTISONE SOD SUCCINATE 100 MG/2 ML VIAL IV SCH ×2 (05:30→13:14)
--- NOTE | 2020-04-05 05:30 | NUR ---
ANALYTICAL CHEMISTRY TEACHER NOTES RN RECEIVED CALL FROM LAB, REGARDING HGB 6.5. RESULTS RELAYED TO TEO LANE NP. PER TEO, NO NEW ORDERS. WILL CONTINUE TO MONITOR
[2020-04-05] MEDS: FLUDROCORTISONE 0.1 MG TABLET PO SCH ×3 (05:35→16:50)
--- NOTE | 2020-04-05 07:00 | NUR ---
PARTS SALES COUNTERPERSON CLOSING NOTES NO ACUTE CHANGES NOTED THROUGHOUT SHIFT. PATIENT REMAINS ORALLY INTUBATED ON MECHANICAL VENT, SEDATED ON DIPRIVAN DRIP @ 40 MCG/KG/MIN, PRESSOR SUPPORT LEVOPHED DRIP @ 0.1 MCG/KG/MIN. WILL ENDORSE PATIENT TO THE AM SHIFT NURSE FOR MARIELA
--- NOTE | 2020-04-05 07:45 | NUR ---
RT PATIENT REC'D ORALLY INTUBATED ON [facility] VENT WITH ORDERED SETTINGS. ALARMS CHECKED + AUDIBLE. ETT SECURE AND IN PROPER POSITION. MACU BAG AT HOB. Addendum: 04/05/20 at 1618 by VINICIUS HOFFMAN RT Amended: Links added.
[2020-04-05] MEDS: MULTIVITAMINS,THERAGRAN 1 UDTAB TABLET PO SCH (09:07)
[2020-04-05] MEDS: CLOPIDOGREL BISULFATE 75 MG TABLET PO SCH (09:07)
[2020-04-05] MEDS: PSYLLIUM SEED 1 PKT PACKET PO SCH ×2 (09:07→16:38)
[2020-04-05] MEDS: CHOLECALCIFEROL 1,000 UNIT TABLET (VIT D3) PO SCH (09:07)
[2020-04-05] MEDS: OXCARBAZEPINE 150 MG TABLET PO SCH ×2 (09:07→16:37)
[2020-04-05] MEDS: LACTOBACILLUS RHAMNOSUS GG 1 EACH CAP.SPRINK PO SCH ×2 (09:07→16:38)
[2020-04-05] MEDS: ENOXAPARIN SODIUM 40 MG/0.4 ML DISP.SYRIN SQ SCH (09:08)
--- NOTE | 2020-04-05 09:15 | NUR ---
ICU/RN PT IS INTUBATED ON THE VENT AC MODE,FIO2-40%. SAT 02 -98%. SEDATED ON DIPRIVAN.AFEBRILE. ON LEVOPHED DRIP.F/C DRAINING WITH YELLOW URINE,NG TUBE INFUSING WITH GLUCERNA,NO RESIDUAL. LABS REVIEW.H/H-.07/15.MD AWARE..WAITING FOR THE FAMILY MAKE DECISION PLACE PATIENT ON COMFORT CARE. SUCTION PROVIDED.REPOSITION FOR COMFORT.
[2020-04-05] MEDS: POLYETHYLENE GLYCOL 3350 17 GM POWD.PACK PO SCH (10:35)
[2020-04-05] MEDS: FAMOTIDINE (20 MG) 20 MG TABLET PO SCH (10:36)
[2020-04-05] MEDS: DIVALPROEX SODIUM 125 MG CAP.SPRINK GT SCH (10:36)
[2020-04-05] MEDS: DOCUSATE SODIUM LIQ 100 MG/10 ML UDC NG SCH (10:36)
[2020-04-05] MEDS: IV NS 0.9% 1,000 ML IV PRN (16:25)
[2020-04-05] MEDS: NOREPINEPHRINE 8 MG in IV NS 0.9% 242 ML IV PRN (16:50)
--- NOTE | 2020-04-05 17:00 | NUR ---
ICU/RN PM CARE PROVIDED.WOUND DRESSING DONE ORDERED.SUCTION PROVIDED.DUE MEDS ARE GIVEN ORDERED.REPOSITION FOR COMFORT.
[2020-04-05] MEDS ORDERED: MORPHINE SULFATE PF DRIP 250 MG in IV D5W 240 ML IV PRN (20:30)
--- NOTE | 2020-04-05 20:36 | NUR ---
WAGON DRILLER NOTES FAMILY MEMBERS AT BEDSIDE, WITH DECISION TO MOVE FORWARD WITH TERMINAL EXTUBATION AND INITIATION OF COMFORT CARE, MORPHINE DRIP. DR HICKMAN MADE AWARE OF FAMILY DECIDION, WITH ORDER FOR TERMINAL EXTUBATION AND INITIATION OF MORPHINE DRIP: "START AT 5MG/HR, MAY GO UP TO 15MG/HR FOR COMFORT". ALL ORDERS READ BACK FOR CLARIFICATION. WILL CARRY OUT NEW ORDERS
--- NOTE | 2020-04-05 21:45 | NUR ---
CORRECTIONAL SUPPLY SUPERVISOR NOTES 2139 FAMILY MEMBERS REMAIN AT BEDSIDE. ALL QUESTIONS AND CONCERNS DISCUSSED IN DETAIL, WITH VERBALIZATION OF UNDERSTANDING REGARDING PLAN OF CARE/TRANSITION TO COMFORT CARE 2144 FAMILY LEFT BEDSIDE. DISCUSSED WITH FAMILY, MORPHINE DRIP INITIATED AFTER THEY LEFT, STARTED @ 5MG/HR ORDERED. WILL COORDINATE WITH RT REGARDING TERMINAL EXTUBATION
[2020-04-05] MEDS ORDERED: DC PROPOFOL WHEN EXTUBATED XX PRN (22:00)
--- NOTE | 2020-04-05 23:20 | NUR ---
SURVEY RESEARCH CENTER DIRECTOR NOTES PATIENT S/P TERMINAL EXTUBATION. CURRENTLY ON MORPHINE DRIP @ 5MG/HR. RESPIRATIONS EVEN AND NONLABORED, PATIENT APPEARS COMFORTABLE, NO SIGNS AND SYMPTOMS OF PAIN NOTED AT THIS TIME. WILL MONITOR
--- NOTE | 2020-04-05 23:24 | NUR ---
@2320 PT TERMINALLY EXTUBATED. RN AT BEDSIDE. Addendum: 04/05/20 at 2325 by LOPEZ WORKMAN RT Amended: Links added.
--- NOTE | 2020-04-06 02:22 | NUR ---
PRIMER INSPECTOR NOTES PATIENT NOTED WITH ASYSTOLE ON BEDSIDE COMMUNICATIONS SUPERINTENDENT. NO HEART TONES NOTED UPON AUSCULTATION. NO VISIBLE CHEST RISE. NO PULSES PALPABLE. NO BP OBTAINABLE. PUPILS FIXED AND DILATED. PATIENT PRONOUNCED BY CHARGE NURSE MARY.
--- NOTE | 2020-04-06 04:00 | NUR ---
CASEY SAW OPERATOR NOTES REMAINS PICKED UP BY SECURITY, DELIVERED TO [facility] [place]
--- NOTE | 2020-04-06 07:25 | NUR ---
BOX REPAIRER NOTES ATTEMPTED TO CALL PATIENT'S SON, LINH, TO NOTIFY REGARDING THE PATIENT EXPIRING. UNABLE TO LEAVE VOICE MESSAGE, TEXT MESSAGE SENT @ 0300 VIA CHARGE NURSE PHONE REQUESTED BY PATIENT'S SON
== END 2020-04-06 02:22 | disposition expired | DRG 870 ==
LOC: ER 21:21 → TRANSITION 23:20 → TELE1 03-12 18:37 → TELE 03-13 21:55 → MED 03-14 12:43 → TELE 03-18 12:36 → MED 03-22 11:46 → ICU 03-24 10:54
PROVIDERS: ADMIT Internal Medicine; ATTEND Family Medicine
PROC: 05HC33Z Insertion of Infusion Device into Left Basilic Vein, Percutaneous Approach (ICD-10-PCS; principal; 2020-03-20)
PROC: 5A1955Z Respiratory Ventilation, Greater than 96 Consecutive Hours (ICD-10-PCS; 2020-03-24)
PROC: 0BH18EZ Insertion of Endotracheal Airway into Trachea, Via Natural or Artificial Opening Endoscopic (ICD-10-PCS; 2020-03-24)
PROC: 0DH63UZ Insertion of Feeding Device into Stomach, Percutaneous Approach (ICD-10-PCS; 2020-03-24)
PROC: 05H933Z Insertion of Infusion Device into Right Brachial Vein, Percutaneous Approach (ICD-10-PCS; 2020-04-02)
DX: A41.9 Sepsis, unspecified organism (principal); G92 Toxic encephalopathy; N17.0 Acute kidney failure with tubular necrosis; I21.A1 Myocardial infarction type 2; K72.00 Acute and subacute hepatic failure without coma; J96.01 Acute respiratory failure with hypoxia; R65.21 Severe sepsis with septic shock; J69.0 Pneumonitis due to inhalation of food and vomit; T80.62XA Other serum reaction due to vaccination, initial encounter; E87.2 Acidosis; N39.0 Urinary tract infection, site not specified; J90 Pleural effusion, not elsewhere classified; E87.1 Hypo-osmolality and hyponatremia; E87.0 Hyperosmolality and hypernatremia; E27.40 Unspecified adrenocortical insufficiency; J67.9 Hypersensitivity pneumonitis due to unspecified organic dust; Z51.5 Encounter for palliative care; Z66 Do not resuscitate; I25.10 Atherosclerotic heart disease of native coronary artery without angina pectoris; G40.909 Epilepsy, unspecified, not intractable, without status epilepticus; T50.B95A Adverse effect of other viral vaccines, initial encounter; Y84.8 Other medical procedures as the cause of abnormal reaction of the patient, or of later complication, without mention of misadventure at the time of the procedure; Y92.129 Unspecified place in nursing home as the place of occurrence of the external cause; I95.9 Hypotension, unspecified; F03.90 Unspecified dementia, unspecified severity, without behavioral disturbance, psychotic disturbance, mood disturbance, and anxiety; E11.65 Type 2 diabetes mellitus with hyperglycemia; Z88.0 Allergy status to penicillin; Z79.84 Long term (current) use of oral hypoglycemic drugs; Z79.51 Long term (current) use of inhaled steroids; Z79.899 Other long term (current) drug therapy; Z79.02 Long term (current) use of antithrombotics/antiplatelets; D64.9 Anemia, unspecified; I67.2 Cerebral atherosclerosis; Z20.822 Contact with and (suspected) exposure to COVID-19; I11.0 Hypertensive heart disease with heart failure; I50.9 Heart failure, unspecified; N13.9 Obstructive and reflux uropathy, unspecified; E86.1 Hypovolemia; F09 Unspecified mental disorder due to known physiological condition; J32.0 Chronic maxillary sinusitis
CPT/HCPCS: 31720; 36415; 36600; 70450-TC; 71045-TC; 74018; 80048-TC; 80053-TC; 80061-TC; 80076-TC; 80202-TC; 81001; 82247-TC; 82248-TC; 82378; 82533; 82550-TC; 82570-TC; 82803-TC; 82962-TC; 83540-TC; 83605-TC; 83735-TC; 83880; 83970; 84100-TC; 84155; 84155-TC; 84165; 84300-TC; 84439-TC; 84443-TC; 84478-TC; 84484-TC; 85025-TC; 85378-TC; 85730-TC; 87040-TC; 87081-TC; 87086-TC; 87186-TC; 92526; 92611-TC; 94002-TC; 94003-TC; 94760-TC; 94762-TC; 94799-TC; 97112-TC; 97530-TC; A4216; A4624; C9803; G0378; J0330; J0456; J1100; J1650; J1720; J1815; J1956; J2185; J2270; J2274; J2916; J2930; J3370; J3480; J3490; J7030; J7040; J7042; J7050; J7060; J7070; U0003